=== PATIENT | female | born 1940 | race Caucasian/White ===

== ENCOUNTER → 2017-04-06 | Outpatient (CLI) | payer OTHER ==
[~2017-04-06] MED LIST: ALBU17IN INH; ALLO15TA PO; AMLO10CA29 PO; HYDR25TA6 PO; METF500T13 PO; PRAV20TA2 PO
[2017-04-06 09:12] LABS: BASO # 0.1 K/mm3 (0.0-0.2); EOS # 0.3 K/mm3 (0.0-0.50); EOS % 4.2 % (0.0-3.0); LARGE UNSTAINED CELL # 0.1 K/mm3 (0.0-0.4); LARGE UNSTAINED CELL % 2.1 % (0.0-4.0); LYMPH # 2.3 K/mm3 (1.5-4.5); LYMPH % 35.6 % (24.0-44.0); MEAN CORPUSCULAR HEMOGLOBIN 31.5 pg (27.0-33.0); MEAN CORPUSCULAR HGB CONC 33.6 g/dl (32.0-36.5); MEAN CORPUSCULAR VOLUME 93.8 fl (80.0-96.0); MONO # 0.4 K/mm3 (0.0-0.8); MONO % 6.1 % (0.0-5.0); NEUTROPHILS # 3.3 K/mm3 (1.8-7.7); NEUTROPHILS % 51.1 % (36.0-66.0); PLATELET COUNT, AUTOMATED 312 k/mm3 (150-450); RED CELL DISTRIBUTION WIDTH 13.6 % (11.5-14.5); WHITE BLOOD COUNT 6.5 K/mm3 (4.0-10.0)
[2017-04-06 09:43] LABS: ALBUMIN/GLOBULIN RATIO 1.33 (1.00-1.93); BILIRUBIN,TOTAL 0.4 MG/DL (0.2-1.0); CALCIUM LEVEL 9.2 MG/DL (8.8-10.2); CREATININE FOR GFR 1.11 MG/DL (0.55-1.02); GLOMERULAR FILTRATION RATE 50.7 (>39); POTASSIUM SERUM 4.4 MEQ/L (3.5-5.1); URIC ACID 4.5 MG/DL (2.6-6.0)
== END ==
LOC: M WUC 08:10
PROVIDERS: ATTEND Physician Assistant
DX: I10 Essential (primary) hypertension (principal); E78.5 Hyperlipidemia, unspecified; M10.9 Gout, unspecified; E11.9 Type 2 diabetes mellitus without complications; R74.0 Nonspecific elevation of levels of transaminase and lactic acid dehydrogenase [LDH]

== ENCOUNTER 2018-02-21 05:57 | Day surgery (SDC) | payer OTHER ==
[2018-02-21] MEDS ORDERED: SLF 3 ML SYR IV ×2 (06:00)
[2018-02-21] MEDS: PHENYLEPHRINE 2.5% OPHTH SOL 2ML OD (06:30)
[2018-02-21] MEDS: OFLOXACIN 0.3 % (OCUFLOX) OPTH SOL 5ML OD (06:30)
[2018-02-21] MEDS: TROPICAMIDE 1% OPHTH SOLN 2ML OD (06:30)
[2018-02-21] MEDS: PROPARACAINE 0.5% OPHTH SOL 15ML OD (06:30)
[2018-02-21 06:39] LABS: BEDSIDE GLUCOSE 119 MG/DL (83-110)
[2018-02-21] MEDS ORDERED: MIDAZOLAM INJ 2 MG/2 ML VIAL (J2250) As Ordered (07:31)
[2018-02-21] MEDS ORDERED: fentaNYL 100 MCG/2 ML INJECTION (J3010) As Ordered (07:31)
[2018-02-21] MEDS: CEFUROXIME 1MG/0.1ML INTRACAMERAL INJ As Ordered (08:00)
[2018-02-21] MEDS: BALANCED SALT IRRIGATION SOLUTION 500ML BAG (FOR OR EYE MACHINE) As Ordered (08:00)
[2018-02-21] MEDS: POVIDONE-IODINE 5% OPHTH PREP SOL 30ML As Ordered (08:00)
[2018-02-21] MEDS: DUOVISC (0.50ML VISCOAT/0.55ML PROVISC) OPHTH KIT As Ordered (08:00)
[2018-02-21] MEDS: LIDOCAINE 0.75%/EPINEPHRINE 0.025% IN BSS 1ML SYR INTRACAMERAL (OR ONLY) As Ordered (08:00)
== END 2018-02-21 09:00 | disposition home or self-care (01) ==
LOC: M SDC 05:57
DX: H25.11 Age-related nuclear cataract, right eye (principal); I10 Essential (primary) hypertension; R55 Syncope and collapse; E11.9 Type 2 diabetes mellitus without complications; J45.909 Unspecified asthma, uncomplicated; Z79.899 Other long term (current) drug therapy; Z79.84 Long term (current) use of oral hypoglycemic drugs
CPT/HCPCS: 66984

== ENCOUNTER 2018-02-28 08:51 | Day surgery (SDC) | payer OTHER ==
[2018-02-28 09:43] LABS: BEDSIDE GLUCOSE 111 MG/DL (83-110)
[2018-02-28] MEDS: PROPARACAINE 0.5% OPHTH SOL 15ML OS (09:44)
[2018-02-28] MEDS: TROPICAMIDE 1% OPHTH SOLN 2ML OS (09:44)
[2018-02-28] MEDS: OFLOXACIN 0.3 % (OCUFLOX) OPTH SOL 5ML OS (09:44)
[2018-02-28] MEDS: PHENYLEPHRINE 2.5% OPHTH SOL 2ML OS (09:44)
[2018-02-28] MEDS: POVIDONE-IODINE 5% OPHTH PREP SOL 30ML As Ordered (10:27)
[2018-02-28] MEDS: DUOVISC (0.50ML VISCOAT/0.55ML PROVISC) OPHTH KIT As Ordered (10:30)
[2018-02-28] MEDS: LIDOCAINE 0.75%/EPINEPHRINE 0.025% IN BSS 1ML SYR INTRACAMERAL (OR ONLY) As Ordered (10:30)
[2018-02-28] MEDS: CEFUROXIME 1MG/0.1ML INTRACAMERAL INJ As Ordered (10:30)
[2018-02-28] MEDS: BALANCED SALT IRRIGATION SOLUTION 500ML BAG (FOR OR EYE MACHINE) As Ordered (10:30)
== END 2018-02-28 11:25 | disposition home or self-care (01) ==
LOC: M SDC 08:51
DX: H25.12 Age-related nuclear cataract, left eye (principal); I10 Essential (primary) hypertension; E11.9 Type 2 diabetes mellitus without complications; R06.00 Dyspnea, unspecified; J45.909 Unspecified asthma, uncomplicated; E66.01 Morbid (severe) obesity due to excess calories; Z68.38 Body mass index [BMI] 38.0-38.9, adult; Z79.899 Other long term (current) drug therapy; Z79.84 Long term (current) use of oral hypoglycemic drugs
CPT/HCPCS: 66984

== ENCOUNTER → 2018-05-27 | Outpatient (CLI) | payer OTHER ==
[2018-05-27 09:58] LABS: BASO # 0.1 10^3/uL (0.0-0.2); BASO % 0.8 % (0.0-1.0); EOS # 0.2 10^3/uL (0.0-0.50); EOS % 2.4 % (0.0-3.0); HEMATOCRIT 43.5 % (36.0-47.0); IMMATURE GRANULOCYTE % 0.3 % (0-3.0); LYMPH # 2.8 10^3/uL (1.5-4.5); LYMPH % 35.5 % (24.0-44.0); MEAN CORPUSCULAR HEMOGLOBIN 30.3 pg (27.0-33.0); MEAN CORPUSCULAR HGB CONC 32.2 g/dl (32.0-36.5); MEAN CORPUSCULAR VOLUME 94.2 fl (80.0-96.0); MONO # 0.7 10^3/uL (0.0-0.8); MONO % 8.8 % (0.0-5.0); NEUTROPHILS # 4.2 10^3/uL (1.8-7.7); NEUTROPHILS % 52.2 % (36.0-66.0); PLATELET COUNT, AUTOMATED 267 10^3/uL (150-450); RED BLOOD COUNT 4.62 10^6/uL (4.00-5.40); RED CELL DISTRIBUTION WIDTH 13.2 % (11.5-14.5)
[2018-05-27 10:12] LABS: APPEARANCE, URINE CLEAR (CLEAR); BACTERIA, URINE AUTO NEGATIVE (NEGATIVE); BILIRUBIN, URINE AUTO NEGATIVE (NEGATIVE); BLOOD, URINE BLOOD NEGATIVE (NEGATIVE); COLOR, URINE STRAW (YELLOW); GLUCOSE, URINE (UA) AUTO NEGATIVE (NEGATIVE); KETONE, URINE AUTO NEGATIVE (NEGATIVE); LEUKOCYTE ESTERASE, URINE AUTO TRACE (NEGATIVE); NITRITE, URINE AUTO NEGATIVE (NEGATIVE); PROTEIN, URINE AUTO NEGATIVE (NEGATIVE); RBC, URINE AUTO 2 /HPF (0-3); SPECIFIC GRAVITY URINE AUTO 1.002 (1.002-1.035); SQUAMOUS EPITHELIAL CELL UR AU 0 /HPF (0-6); UROBILINOGEN, URINE AUTO 0.2 mg/dL (0.0-2.0); WBC, URINE AUTO 1 /HPF (0-3)
[2018-05-27 10:32] LABS: ALBUMIN 4.2 GM/DL (3.2-5.2); ALBUMIN/GLOBULIN RATIO 1.35 (1.00-1.93); ALKALINE PHOSPHATASE 79 U/L (45-117); ALT/SGPT 22 U/L (12-78); ANION GAP 9 MEQ/L (8-16); AST/SGOT 15 U/L (7-37); BILIRUBIN,TOTAL 0.5 MG/DL (0.2-1.0); BLOOD UREA NITROGEN 16 MG/DL (7-18); CALCIUM LEVEL 9.2 MG/DL (8.8-10.2); CARBON DIOXIDE LEVEL 27 MEQ/L (21-32); CHLORIDE LEVEL 107 MEQ/L (98-107); CHOLESTEROL LEVEL 218 MG/DL (<200); CHOLESTEROL RISK RATIO 3.253 (<5); CREATININE FOR GFR 1.14 MG/DL (0.55-1.30); GLOMERULAR FILTRATION RATE 49.1 (>39); GLUCOSE, FASTING 104 MG/DL (70-100); HDL CHOLESTEROL 67 MG/DL (>40); LDL CHOLESTEROL 108 MG/DL (<100); NON-HDL-C 151 MG/DL; POTASSIUM SERUM 4.6 MEQ/L (3.5-5.1); SODIUM LEVEL 143 MEQ/L (136-145); THYROID STIMULATING HORMONE 0.766 uIU/ML (0.358-3.740); TOTAL PROTEIN 7.3 GM/DL (6.4-8.2); TRIGLYCERIDES LEVEL 215 MG/DL (<150)
[2018-05-27 10:35] LABS: ESTIMATED AVERAGE GLUCOSE 123 MG/DL (60-110); HEMOGLOBIN A1c 5.9 %
== END ==
LOC: M WUC 08:10
DX: E78.5 Hyperlipidemia, unspecified (principal); M10.9 Gout, unspecified
CPT/HCPCS: 84443

== ENCOUNTER 2019-03-04 15:27 | Inpatient (IN) | payer MEDICARE, OTHER ==
[~2019-03-04] VITALS: Ht 154.9 cm; Wt 95.0 kg
[~2019-03-04 15:27] MED LIST changes: -ALLO15TA PO; +ALLO300T2 PO; +AMLO10CA22 PO; -AMLO10CA29 PO; +CENT1TAB PO; +VITAD1000T PO
[2019-03-04 16:30] LABS: BASO # 0.1 10^3/uL (0.0-0.2); BASO % 0.9 % (0.0-1.0); EOS # 0.1 10^3/uL (0.0-0.50); EOS % 1.6 % (0.0-3.0); HEMOGLOBIN 14.1 g/dl (12.0-15.5); LYMPH # 2.5 10^3/uL (1.5-4.5); MEAN CORPUSCULAR HEMOGLOBIN 30.7 pg (27.0-33.0); MEAN CORPUSCULAR HGB CONC 32.8 g/dl (32.0-36.5); MEAN CORPUSCULAR VOLUME 93.5 fl (80.0-96.0); MONO # 0.7 10^3/uL (0.0-0.8); MONO % 8.6 % (0.0-5.0); NEUTROPHILS # 4.4 10^3/uL (1.8-7.7); NEUTROPHILS % 56.8 % (36.0-66.0); PLATELET COUNT, AUTOMATED 208 10^3/uL (150-450); WHITE BLOOD COUNT 7.7 10^3/uL (4.0-10.0)
--- NOTE | 2019-03-04 16:32 | REP ---
CT HEAD WITHOUT CONTRAST: HISTORY: Syncope. COMPARISON: 06/17/2016. Areas of decreased attenuation are present in the right parietal lobe and left cerebellum. These represent old infarctions. Areas of decreased attenuation are present in the basal ganglia and left thalamus. These represent old lacunar infarctions. Areas of decreased attenuation are present in the periventricular and subcortical white matter. This represents small vessel ischemic disease. There is no intraparenchymal hemorrhage, mass or midline shift. The ventricular system and cortical sulci are dilated consistent with moderate volume loss. There is no extracerebral collection. Minimal mucosal thickening is present in the right mastoid air cells. The visualized sinuses are clear. IMPRESSION: 1. 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 2. Old bilateral basal ganglia and left thalamic lacunar infarctions. 3. Small vessel ischemic disease. 4. Moderate volume loss. Electronically Signed by Spencer Calle MD 03/04/2019 04:38 P
[2019-03-04 16:52] LABS: ALBUMIN 3.9 GM/DL (3.2-5.2); ALT/SGPT 19 U/L (12-78); BILIRUBIN,DIRECT 0.1 MG/DL (0.0-0.2); BILIRUBIN,TOTAL 0.3 MG/DL (0.2-1.0); BLOOD UREA NITROGEN 10 MG/DL (7-18); C REACTIVE PROTEIN QUANTITATIV 0.32 MG/DL (0.00-0.30); CALCIUM LEVEL 9.4 MG/DL (8.8-10.2); CARBON DIOXIDE LEVEL 26 MEQ/L (21-32); CHLORIDE LEVEL 111 MEQ/L (98-107); CK-MB VALUE MASS < 1.0 NG/ML (<3.6); CPK CREATINE PHOSPHOKINASE 52 U/L (26-192); CREATININE FOR GFR 1.05 MG/DL (0.55-1.30); GLUCOSE, FASTING 109 MG/DL (70-100); MB/CK RELATIVE INDEX 1.92 (< OR =4); POTASSIUM SERUM 4.1 MEQ/L (3.5-5.1); SODIUM LEVEL 143 MEQ/L (136-145); THYROID STIMULATING HORMONE 0.341 uIU/ML (0.358-3.740); TOTAL PROTEIN 7.1 GM/DL (6.4-8.2); TROPONIN I < 0.02 NG/ML (< 0.10)
[2019-03-04 16:54] LABS: ERYTHROCYTE SEDIMENTATION RATE 24 mm/hr (0-30)
--- NOTE | 2019-03-04 20:05 | ECGEPIP ---
[facility] - ED Test Date: 2019-03-04 Pat Name: DENISE SANCHES Department: Room: - Gender: Female [employer]: JT : 1940 Requested By: Rebecca Saavedra Order Number: [id number] Reading MD: Alo Fish Measurements Intervals [place] Rate: 68 P: 22 AK: 157 QRS: 5 QRSD: 93 T: 42 QT: 408 QTc: 435 Interpretive Statements SINUS RHYTHM NSTTW ABNORMALITIES SIMILAR TO 06/17/16 Electronically Signed on 03-04-2019 20:05:13 EDT by Alo Fish
--- NOTE | 2019-03-04 21:04 | REPVR ---
EXAM: MR Head Without Contrast EXAM DATE/TIME: 03/04/2019 7:41 PM CLINICAL HISTORY: 78 years old, female; Patient HX: Blurry vision, unable to see long distance. 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 COMPARISON: CT Head without contrast 03/04/2019 3:42 PM FINDINGS: Punctate 3 mm round focus of increased diffusion and decreased ADC map signal (image 11) just anterior to the quadrigeminal plate cistern and within the dorsal midbrain and. Remote infarct with volume loss, left cerebellum and right posterior peritrigonal Midline structures and cerebellar tonsillar position appear normal. Ventricles, cisterns and sulci are symmetrically prominent. No intracranial mass, midline shift, or abnormal extra-axial fluid. No acute intracranial hemorrhage. Moderate pattern of increased T2 and flair signal in supratentorial white matter. CP angle cisterns show normal CSF signal without effacement or mass. No abnormal parenchymal or meningeal enhancement with gadolinium. Vascular flow voids are preserved in vertebro-basilar and carotid vessels. Major dural venous sinuses appear patent. Paranasal sinuses show normal aeration. Right mastoids are opacified Ocular globes and orbits are unremarkable. No soft tissue abnormality or asymmetry in the posterior nasopharynx. IMPRESSION: Acute nonhemorrhagic punctate 3 mm infarct, left posterior midbrain at the inferior colliculus level. Anatomically this could correspond to a cranial nerve 3 (oculomotor) deficit. No mass effect. Remote left cerebellar hemisphere with encephalomalacia and similar remote infarct, right posterior peritrigonal. Chronic microangiopathic supratentorial white matter changes. Electronically signed by: Boby Miranda On 03/04/2019 21:04:26 PM
--- NOTE | 2019-03-04 21:06 | REPVR ---
EXAM: MR Angiogram Head Without Contrast, Arteries EXAM DATE/TIME: 03/04/2019 7:41 PM CLINICAL HISTORY: 78 years old, female; Visual disturbance; Other visual defect; Patient HX: Blurry vision, unable to see long distance. 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 Exam focused on the arteries. 3D rendering: MIP reconstructed images were created and reviewed. COMPARISON: CT Head without contrast 03/04/2019 3:42 PM FINDINGS: Anterior circulation: Normal flow signal and luminal caliber in the petrous, cavernous and supraclinoid internal carotid arteries. Normal appearance of the anterior cerebral artery branches and middle cerebral artery branches through the MCA trifurcations. No occlusion, high-grade focal stenosis or dissection. No aneurysm. Posterior circulation: Normal distal vertebral arteries, with patent normal caliber basilar artery, and normal superior cerebellar and posterior cerebral arteries. No occlusion, high-grade stenosis or aneurysm. Right and left P1 segments are diminutive in the normal caliber right posterior cerebral arteries are supplied predominantly by posterior communicating arteries IMPRESSION: Unremarkable MR angiogram of the [place] and intracranial vertebrobasilar system. No intracranial large vessel lesion Electronically signed by: Boby Miranda On 03/04/2019 21:05:50 PM
[2019-03-04] MEDS ORDERED: ASPIRIN 325 MG TAB PO ONE (21:30)
[2019-03-04] MEDS ORDERED: ZYLO300T6 PO (21:48)
[2019-03-04] MEDS ORDERED: VITA-145 PO (21:48)
[2019-03-04] MEDS ORDERED: VITMTA PO (21:48)
[2019-03-04] MEDS ORDERED: ACETAMINOPHEN TAB 650MG DOSE (2X325MG) PO PRN (22:30)
[2019-03-04] MEDS ORDERED: MOM 30ML SUSPENSION UDC PO PRN (22:30)
[2019-03-04] MEDS ORDERED: MAALOX 30 ML SUSP *UDC PO PRN (22:30)
[2019-03-04] MEDS ORDERED: DEXTROSE 50% 50 ML SYRINGE IV PRN (22:45)
[2019-03-04] MEDS ORDERED: GLUCOSE 4 GM CHEW TABLET PO PRN (22:45)
[2019-03-04] MEDS ORDERED: GLUCAGON FOR INJ 1 MG VIAL (J1610) SC PRN (22:45)
[2019-03-04] MEDS: ENOXAPARIN 40 MG/0.4 ML SYRINGE (J1650) SC SCH (22:53)
--- NOTE | 2019-03-04 23:49 | HPEPDOC ---
General Date of Admission 03.04.19 Date of Service: Mar 04, 2019 Chief Complaint The patient is a 78-year-old female admitted with a reason for visit of Blood Pressure Problem. History of Present Illness 78f with hx of dm, htn, asthma, and hld p/w double vision. Pt reports this started about 30 hours ago. She denies any focal weakness or numbness. Family reports she is walking "very funny" and needs to hold on to something or she will fall. The double vision occurs while looking ahead or to either side. A full ROS was performed and negative except as above Home Medications Scheduled Allopurinol (Zyloprim) 300 Mg Tablet, 300 MG PO DAILY, (Reported) Amlodipine Besylate/Benazepril (Amlodipine-Benazepril 10-40 mg) 1 Cap Cap, 1 CAP PO DAILY, (Reported) Cholecalciferol (Vitamin D3) (Vitamin D3) 1,000 Unit Tablet, 1,000 UNIT PO DAILY, (Reported) Metformin HCl (Metformin HCl) 500 Mg Tab, 500 MG PO DAILY, (Reported) Multivitamins (Thera M Plus Tablet) 1 Each Tablet, 1 TAB PO DAILY, (Reported) Pravastatin Sodium (Pravastatin Sodium) 20 Mg Tab, 20 MG PO DAILY, (Reported) Allergies Coded Allergies: No Known Allergies (Unverified , 02/11/18) Past Medical History Medical History dm, htn , hld, asthma Surgical History cataracts Family History Significant Family History: No pertinent family hx Social History * Smoker: Denies Alcohol: occationally Drugs: denies A-FIB/CHADSVASC A-FIB History Current/History of A-Fib/PAF?: No Current PO Anticoag Therapy: No Age/Risk Factor Scoring CHADSVASC: CHADSVASC Response (Comments) Value Age Risk Factor Age >/= 75 years old 2 Gender Risk Factor Female 1 Hx of CHF No 0 Hx of HTN Yes 1 Hx of Stroke/TIA/or VTE Yes 2 Hx of Diabetes Yes 1 Hx of Vascular Disease No 0 Total 7 Treatment Treatment ordered: NONE Reason Anticoagulant not given: Not indicated/[id number] Physical Examination General Exam: Positive: Alert, Cooperative, No Acute Distress Eye Exam: Positive: Other Eye Symptoms (neither eye appears to adduct ) ENT Exam: Positive: Atraumatic, Mucous membr. moist/pink, Pharynx Normal Neck Exam: Positive: Supple; Negative: JVD, thyromegaly Chest Exam: Positive: Clear to auscultation, Normal air movement Heart Exam: Positive: Rate Normal, Regular Rhythm, Normal S1, Normal S2; Negative: Murmurs, Rubs Telemetry: Positive: No significant arrhythmia Abdomen Exam: Positive: Normal bowel sounds, Soft; Negative: Tenderness, Hepatospenomegaly Extremity Exam: Positive: Normal pulses; Negative: Clubbing, Cyanosis, Edema Skin Exam: Positive: Nl turgor and temperature; Negative: Breakdown, Lesion Neuro Exam: Positive: Normal Speech, Strength at 5/5 X4 ext, Normal Tone, Sensation Intact; Negative: Cranial Nerves 3-12 NL Psych Exam: Positive: Mental status NL, Mood NL, Anxiety, Memory Intact, Oriented x 3 Vital Signs Vital Signs Date Time Temp Pulse Resp B/P (MAP) Pulse Ox O2 Delivery O2 Flow Rate FiO2 03/04/19 22:15 66 155/68 (97) 97 03/04/19 18:15 20 Room Air 03/04/19 15:27 98.0 Laboratory Data Labs 24H Laboratory Tests 2 03/04/19 16:08: Immature Granulocyte % (Auto) 0.1, White Blood Count 7.7, Red Blood Count 4.60, Hemoglobin 14.1, Hematocrit 43.0, Mean Corpuscular Volume 93.5, Mean Corpuscular Hemoglobin 30.7, Mean Corpuscular Hemoglobin Concent 32.8, Red Cell Distribution Width 13.5, Platelet Count 208, Neutrophils (%) (Auto) 56.8, Lymphocytes (%) (Auto) 32.0, Monocytes (%) (Auto) 8.6H, Eosinophils (%) (Auto) 1.6, Basophils (%) (Auto) 0.9, Neutrophils # (Auto) 4.4, Lymphocytes # (Auto) 2.5, Monocytes # (Auto) 0.7, Eosinophils # (Auto) 0.1, Basophils # (Auto) 0.1, Nucleated Red Blood Cells % (auto) 0.0, Erythrocyte Sedimentation Rate 24, Anion Gap 6L, Glomerular Filtration Rate 54.0, Calcium Level 9.4, Aspartate Amino Transf (AST/SGOT) 12, Alanine Aminotransferase (ALT/SGPT) 19, Alkaline Phosphatase 74, Total Bilirubin 0.3, Direct Bilirubin 0.1, Total Creatine Kinase 52, Creatine Kinase MB < 1.0, Creatine Kinase MB Relative Index 1.92, Troponin I < 0.02, C- Reactive Protein, Quantitative 0.32H, Total Protein 7.1, Albumin 3.9, Albumin/Globulin Ratio 1.22, Thyroid Stimulating Hormone (TSH) 0.341L CBC/BMP Laboratory Tests 03/04/19 16:08 Red Blood Count 4.60, Mean Corpuscular Volume 93.5, Mean Corpuscular Hemoglobin 30.7, Mean Corpuscular Hemoglobin Concent 32.8, Red Cell Distribution Width 13.5, Neutrophils (%) (Auto) 56.8, Lymphocytes (%) (Auto) 32.0, Monocytes (%) (Auto) 8.6 H, Eosinophils (%) (Auto) 1.6, Basophils (%) (Auto) 0.9, Neutrophils # (Auto) 4.4, Lymphocytes # (Auto) 2.5, Monocytes # (Auto) 0.7, Eosinophils # (Auto) 0.1, Basophils # (Auto) 0.1 Assessment/Plan 78f p/w acute cva in midbrain outside window for tpa start aspirin no large vessel occlusions noted check lipid panel continue pravachol for now check a1c check carotid ultrasound check echo tele monitoring for afib PT/OT eval permissive htn dm hold metformin check a1c monitor fingersticks sliding scale coverage htn lotrel on hold for now Plan / VTE VTE Prophylaxis Ordered?: Yes ROLY VALENCIA MD Mar 04, 2019 22:50
[2019-03-05] VITALS (7 sets, daily range): BP systolic 136–176; BP diastolic 64–78
[2019-03-05 05:19] LABS: HEMATOCRIT 38.6 % (36.0-47.0); HEMOGLOBIN 12.7 g/dl (12.0-15.5); MEAN CORPUSCULAR HEMOGLOBIN 30.2 pg (27.0-33.0); MEAN CORPUSCULAR HGB CONC 32.9 g/dl (32.0-36.5); MEAN CORPUSCULAR VOLUME 91.7 fl (80.0-96.0); PLATELET COUNT, AUTOMATED 205 10^3/uL (150-450); RED BLOOD COUNT 4.21 10^6/uL (4.00-5.40); WHITE BLOOD COUNT 6.4 10^3/uL (4.0-10.0)
[2019-03-05 05:37] LABS: BLOOD UREA NITROGEN 11 MG/DL (7-18); CALCIUM LEVEL 8.6 MG/DL (8.8-10.2); CARBON DIOXIDE LEVEL 27 MEQ/L (21-32); CHLORIDE LEVEL 113 MEQ/L (98-107); CREATININE FOR GFR 0.93 MG/DL (0.55-1.30); GLOMERULAR FILTRATION RATE > 60.0 (>39); GLUCOSE, FASTING 100 MG/DL (70-100); POTASSIUM SERUM 3.6 MEQ/L (3.5-5.1); SODIUM LEVEL 144 MEQ/L (136-145)
[2019-03-05 05:38] LABS: CHOLESTEROL LEVEL 158 MG/DL (<200); CHOLESTEROL RISK RATIO 2.872 (<5); HDL CHOLESTEROL 55 MG/DL (>40); LDL CHOLESTEROL 73 MG/DL (<100); NON-HDL-C 103 MG/DL; TRIGLYCERIDES LEVEL 151 MG/DL (<150)
[2019-03-05 05:41] LABS: HEMOGLOBIN A1c 6.3 %
[2019-03-05] MEDS: HumaLOG INSULIN (NovoLOG) PER UNIT SC SCH ×3 (07:30→17:11)
[2019-03-05] MEDS: MULTIVITAMINS/MINERALS THERAP 1 TAB PO SCH (09:33)
[2019-03-05] MEDS: VITAMIN D 1,000 INTERNATIONAL UNITS TABLET PO SCH (09:33)
[2019-03-05] MEDS: PRAVASTATIN 20 MG TAB PO SCH (09:33)
[2019-03-05] MEDS: ASPIRIN 81 MG CHEW TABLET PO SCH (09:33)
[2019-03-05] MEDS: ALLOPURINOL 300 MG TAB PO SCH (09:34)
--- NOTE | 2019-03-05 12:47 | IPNPDOC ---
Text Note Date of Service The patient was seen on 03/05/19. NOTE Subjective: patient seen and examined at bedside. No acute overnight events reported. Patient still notes changes in vision. Denies any other medical complaints. Objective: General: NAD, lying comfortably in bed HEENT: NC/AT, PERRL, impaired EOM - right eye Lungs: CTA b/L Heart: +S1S2, RRR Abd: soft, NT, +BS Ext: no edema A/P: 78f p/w visual deficits, gait dysfunction found to have acute cva in left midbrain: #acute CVA - permissive HTN - telemetry monitoring - neurology c/s pending - PT/OT - echocardiogram - lipid profile - ASA/statin #DM - hold metformin - ISS #HTN - lotrel on hold for now VS,Fishbone, I+O VS, Fishbone, I+O Laboratory Tests 03/04/19 16:08 Red Blood Count 4.60, Mean Corpuscular Volume 93.5, Mean Corpuscular Hemoglobin 30.7, Mean Corpuscular Hemoglobin Concent 32.8, Red Cell Distribution Width 13.5, Neutrophils (%) (Auto) 56.8, Lymphocytes (%) (Auto) 32.0, Monocytes (%) (Auto) 8.6 H, Eosinophils (%) (Auto) 1.6, Basophils (%) (Auto) 0.9, Neutrophils # (Auto) 4.4, Lymphocytes # (Auto) 2.5, Monocytes # (Auto) 0.7, Eosinophils # (Auto) 0.1, Basophils # (Auto) 0.1 03/05/19 05:01 Red Blood Count 4.21, Mean Corpuscular Volume 91.7, Mean Corpuscular Hemoglobin 30.2, Mean Corpuscular Hemoglobin Concent 32.9, Red Cell Distribution Width 13.5 Vital Signs Date Time Temp Pulse Resp B/P (MAP) Pulse Ox O2 Delivery O2 Flow Rate FiO2 03/05/19 12:00 99.0 66 20 136/65 (88) 95 03/04/19 18:15 Room Air I&O- Last 24 Hours up to 6 AM 03/05/19 06:00 Intake Total 0 ml Output Total 400 ml Balance -400 ml SUSAN SAHU MD Mar 05, 2019 12:47
[2019-03-05] MEDS: CLOPIDOGREL 75 MG TAB PO SCH (19:27)
[2019-03-05] MEDS: ENOXAPARIN 40 MG/0.4 ML SYRINGE (J1650) SC SCH (20:04)
[2019-03-06 06:00] VITALS: BP 152/71
--- NOTE | 2019-03-06 07:08 | REP ---
Clinical: Cerebrovascular accident . Technique: Lopez scale and color Doppler evaluation using linear high frequency transducer Findings: Two-dimensional lopez scale and color images demonstrate normal arterial lumen with laminar flow and no appreciable narrowing. Color Doppler interrogation demonstrates normal arterial wave patterns and velocities with no significant spectral broadening. Right vertebral artery not identified. Left vertebral artery demonstrates normal flow direction. RIGHT (cm/s) LEFT (cm/s) ICA peak systolic velocity 47.4 53.4 ICA diastolic velocity 16.2 11.8 ECA peak systolic velocity 83.8 81.3 CCA peak systolic velocity 61.0 74.0 ICA/CCA ratio 0.78 0.72 Impression: No hemodynamically significant areas of narrowing or stenosis appreciated. Based on set standards narrowing falls within the normal range. Electronically Signed by Gregory Murphy MD 03/06/2019 06:59 A
--- NOTE | 2019-03-06 07:44 | ECHO ---
DATE OF STUDY: 03/05/2019 DATE OF : 1940 AGE: 78 REFERRING PROVIDER: Dr. Tyree Samaniego PATIENT LOCATION: Room 3210 REASON FOR ECHOCARDIOGRAM: CVA. 2-D MEASUREMENTS: IVS: 1.2 cm LV: 4.3 cm LVPW: 1.2 cm LA: 4.0 cm Aorta: 4.1 cm IVC: 1.8 cm DOPPLER MEASUREMENTS: Peak velocity across the aortic valve: 1.3 m/s Peak velocity across the LVOT: 0.74 m/s Mitral E: 0.92 Mitral A: 1.2 Ratio: 0.7 Maximum tricuspid valve velocity: 2.5 m/s 2-D COMMENTS: 1. Normal left ventricular size, wall thickness, and normal global left ventricular systolic function. The estimated global left ventricular systolic ejection fraction is 65-70%. 2. Borderline enlarged left atrium at 4.0 cm. Normal right atrium and right ventricle. 3. The atrial septum appeared to be normal without evidence of defect or shunt. 4. Mildly dilated aortic root at 4.1 cm. 5. Mildly calcified aortic valve with normal leaflet excursion. Mildly calcified mitral annulus with normal anterior mitral valve leaflet motion. Normal tricuspid valve. The pulmonic valve appeared to be normal. The proximal pulmonary artery branches were not well visualized. 6. The inferior vena cava was normal in size, central venous pressure is most likely normal. 7. Trace to small pericardial effusion, no evidence of cardiac tamponade. DOPPLER: Detects mild tricuspid regurgitation. The calculated pulmonary artery systolic pressure varied between 30-40 mmHg. Abnormal relaxation pattern was noted across the mitral valve leaflets as well as the mitral valve annulus consistent with features of grade 1 left ventricular diastolic dysfunction. IMPRESSION: 1. Normal global left ventricular systolic function. There are some features of left ventricular diastolic dysfunction manifested by abnormal relaxation. 2. Aortic valve sclerosis without stenosis or aortic regurgitation. 3. Isolated borderline enlarged left atrium without any significant mitral regurgitation. Probably related to underlying left ventricular diastolic dysfunction. Mitral annulus calcification was noted. 4. Mild tricuspid regurgitation with mild pulmonary hypertension. 5. Trace to small pericardial effusion, no evidence of cardiac tamponade. [facility]
[2019-03-06] MEDS: HumaLOG INSULIN (NovoLOG) PER UNIT SC SCH ×2 (07:51→12:00)
[2019-03-06] MEDS: MULTIVITAMINS/MINERALS THERAP 1 TAB PO SCH (07:51)
[2019-03-06] MEDS: VITAMIN D 1,000 INTERNATIONAL UNITS TABLET PO SCH (07:51)
[2019-03-06] MEDS: ASPIRIN 81 MG CHEW TABLET PO SCH (07:51)
[2019-03-06] MEDS: ALLOPURINOL 300 MG TAB PO SCH (07:52)
[2019-03-06] MEDS: PRAVASTATIN 20 MG TAB PO SCH (07:52)
[2019-03-06] MEDS: CLOPIDOGREL 75 MG TAB PO SCH (07:52)
--- NOTE | 2019-03-06 09:03 | CR ---
DATE OF CONSULTATION: 03/05/2019 REFERRING PHYSICIAN: Dr. Spencer Banegas REASON FOR CONSULTATION: Double vision. HISTORY OF PRESENT ILLNESS: Rachael Ivory is a 78-year-old woman with history of diabetes, hypertension and asthma who developed double vision on Sunday at around 6:15 p.m. when she was watching TV. She suddenly developed double vision and had imbalance and difficulty walking. She thought that she had problem with her eyes. She waited at home. She made an appointment with her eye doctor the next day at 1:[address] Huston who sent her to the emergency department for testing and admission. She denies any headache, neck pain, back pain, dysphagia, dysarthria, diplopia, urinary incontinence, trouble with her speech, numbness or weakness of arms and legs. She states that she has never had stroke-like symptoms. DIAGNOSTIC STUDIES: Her MRI scan of brain showed acute left pontine-mid brain inferior colliculus acute ischemic stroke. There is also evidence of remote left cerebellar and right occipital-parietal ischemic strokes. She also has extensive small-vessel ischemic disease of brain. MRA of the brain is unremarkable. ALLERGIES: No known drug allergies. PAST MEDICAL HISTORY: Diabetes, hypertension, asthma, cataract surgery. FAMILY HISTORY: Noncontributory. SOCIAL HISTORY: She denies smoking, alcohol or illicit drugs. REVIEW OF SYSTEMS: All systems were reviewed and found to be noncontributory except as mentioned in history of present illness. CURRENT MEDICATIONS: Aspirin 81 mg by mouth daily, pravastatin 20 mg by mouth daily and she also takes metformin at home. PHYSICAL EXAMINATION: Temperature 98.5, pulse 68, respiratory rate 20, blood pressure 176/78, and 96% saturation on room air. Heart: Regular rate and rhythm. Lungs: Clear to auscultation. Abdomen: Soft, nontender, nondistended. No pedal edema. No musculoskeletal abnormalities. No rash. No signs of meningeal irritation. The patient is awake, alert and oriented to place, person and time. Normal speech, comprehension and repetition. Extraocular muscles are intact in the right eye. She had complete restriction of adduction of the left eye. Vertical gaze and abduction of the left eye seems intact. She also has nystagmus of both eyes which is gaze evoked. No facial weakness. Tongue and uvula are midline. Visual jean are full to confrontation. Recent and distant memory is intact. 5/5 strength in upper extremities. Normal sensation in arms. She has decreased cold pinprick vibration sensation in her feet. Deep tendon flexes 1+ in arms and knees and absent at ankles. Gait is unsteady. She has mild dysmetria on the left side. ASSESSMENT: 1. Diplopia due to left pontine-mid brain junction acute ischemic stroke. 2. Old left cerebellar and right occipital and parietal ischemic strokes with extensive small-vessel disease of brain. 3. Diabetes. 4. Hypertension. 5. Dyslipidemia. PLAN: 1. Plavix 75 mg by mouth daily, aspirin 81 mg by mouth daily, pravastatin 20 mg by mouth. 2. She should use an eye patch. 3. Her symptoms can improve from the stroke in 2-6 weeks. 4. Physical and physical and occupational therapy and rehabilitation. 5. Ultrasound of carotid arteries and echocardiogram. 6. Follow with our office in 2-4 weeks after hospital discharge.
[2019-03-06] MEDS ORDERED: ASPI81CH8 PO (10:27)
[2019-03-06] MEDS ORDERED: CLOP75TA2 PO (10:27)
--- NOTE | 2019-03-06 12:35 | DS.PDOC ---
Discharge Summary General Date of Admission Mar 04, 2019 at 22:27 Date of Discharge 03/06/19 Specialist/Consultants Involve: TRANG MEEHAN MD Discharge Summary PROCEDURES PERFORMED DURING STAY: [None]. ADMITTING DIAGNOSES: 1. CVA DISCHARGE DIAGNOSES: # left pontine-mid brain junction acute ischemic stroke. #Old left cerebellar and right occipital and parietal ischemic strokes with extensive small-vessel disease of brain. # Diabetes. # Hypertension. # Dyslipidemia. #gait dysfunction COMPLICATIONS/CHIEF COMPLAINT: Cva (Cerebralvascular Accident). HISTORY OF PRESENT ILLNESS: 78f with hx of dm, htn, asthma, and hld p/w double vision. She denied any focal weakness or numbness. Family reported she is walking "very funny" and needs to hold on to something or she will fall. The d ouble vision occurred while looking ahead or to either side. HOSPITAL COURSE: Patient admitted for further evaluation and treatment and neurology consultation. Workup unrevealing for etiology of CVA, other than medical co-morbidities. Symptoms improved but not resolved. Seen by neruo and PT. Deemed safe for discharge home with o/p follow up. DISCHARGE MEDICATIONS: Please see below. ALLERGIES: Please see below. PHYSICAL EXAMINATION ON DISCHARGE: VITAL SIGNS: Please see below. GENERAL: NAD, lying comfortably in bed HEENT: NC/AT, EOM impaired, unable to adduct left eye CARDIOVASCULAR EXAMINATION: +S1S2, RRR RESPIRATORY EXAMINATION: CTA B/L ABDOMINAL EXAMINATION: soft, NT, +BS NEUROLOGICAL EXAMINATION: impaired EOM, otherwise no other gross deficits PSYCHIATRIC EXAMINATION: AAOx3, in good spirits, anxious to go home LABORATORY DATA: Please see below. ACTIVITY: [As tolerated]. DISPOSITION: Discharge home with o/p PT, rolling walker DISCHARGE INSTRUCTIONS: 1. f/u PCP in 3-5 days 2. f/u neurology in 2-4 weeks DISCHARGE CONDITION: [Stable]. TIME SPENT ON DISCHARGE: Greater than 35 minutes. Vital Signs/I&Os Vital Signs Date Time Temp Pulse Resp B/P (MAP) Pulse Ox O2 Delivery O2 Flow Rate FiO2 03/06/19 06:00 98.2 87 16 152/71 (98) 98 03/04/19 18:15 Room Air I&O- Last 24 Hours up to 6 AM 03/06/19 06:00 Intake Total 920 ml Output Total 700 ml Balance 220 ml Laboratory Data Labs 24H Laboratory Tests 2 03/05/19 17:08: Bedside Glucose (Misc Panel) 87 03/05/19 20:03: Bedside Glucose (Misc Panel) 122H FSBS Laboratory Tests Test 03/05/19 17:08 03/05/19 20:03 Range/Units Bedside Glucose (Misc Panel) 87 122 83-110 MG/DL Discharge Medications Scheduled Allopurinol (Zyloprim) 300 Mg Tablet, 300 MG PO DAILY, (Reported) Amlodipine Besylate/Benazepril (Amlodipine-Benazepril 10-40 mg) 1 Cap Cap, 1 CAP PO DAILY, (Reported) Aspirin (Children's Aspirin) 81 Mg Tab.chew, 81 MG PO DAILY Cholecalciferol (Vitamin D3) (Vitamin D3) 1,000 Unit Tablet, 1,000 UNIT PO DAILY, (Reported) Clopidogrel Bisulfate (Clopidogrel) 75 Mg Tablet, 75 MG PO DAILY Metformin HCl (Metformin HCl) 500 Mg Tab, 500 MG PO DAILY, (Reported) Multivitamins (Thera M Plus Tablet) 1 Each Tablet, 1 TAB PO DAILY, (Reported) Pravastatin Sodium (Pravastatin Sodium) 20 Mg Tab, 20 MG PO DAILY, (Reported) Allergies Coded Allergies: No Known Allergies (Unverified , 02/11/18) SUSAN SAHU MD Mar 06, 2019 12:35
== END 2019-03-06 12:50 | disposition home or self-care (01) | DRG 66 ==
LOC: M ED 15:27 → M ED INP 22:27 → M ICU 03-05 03:30 → M MSPAV 03-05 23:30
PROVIDERS: ADMIT Hospitalist; ATTEND Internal Medicine
DX: I63.9 Cerebral infarction, unspecified (principal); E11.9 Type 2 diabetes mellitus without complications; I10 Essential (primary) hypertension; E78.5 Hyperlipidemia, unspecified; R26.89 Other abnormalities of gait and mobility; J45.909 Unspecified asthma, uncomplicated; Z79.82 Long term (current) use of aspirin; Z79.899 Other long term (current) drug therapy; H53.2 Diplopia

== ENCOUNTER → 2019-06-20 | Outpatient (CLI) | payer MEDICARE ==
[~2019-06-20] MED LIST changes: +ASPI81CH8 PO; +CHOL100029 PO; +CLOP75TA2 PO; +VITA-145 PO; -VITAD1000T PO; +VITMTA PO; +ZYLO300T6 PO
[2019-06-20 12:38] LABS: BASO # 0.1 10^3/uL (0.0-0.2); BASO % 1.4 % (0.0-1.0); EOS # 0.2 10^3/uL (0.0-0.5); EOS % 3.5 % (0.0-3.0); HEMATOCRIT 43.2 % (36.0-47.0); LYMPH # 2.3 10^3/uL (1.5-5.0); LYMPH % 36.5 % (24.0-44.0); MEAN CORPUSCULAR HEMOGLOBIN 30.5 pg (27.0-33.0); MEAN CORPUSCULAR HGB CONC 32.4 g/dl (32.0-36.5); MEAN CORPUSCULAR VOLUME 94.1 fl (80.0-96.0); MONO # 0.5 10^3/uL (0.0-0.8); MONO % 7.9 % (0.0-5.0); NEUTROPHILS # 3.2 10^3/uL (1.5-8.5); NEUTROPHILS % 50.4 % (36.0-66.0); PLATELET COUNT, AUTOMATED 241 10^3/uL (150-450); RED BLOOD COUNT 4.59 10^6/uL (4.00-5.40); WHITE BLOOD COUNT 6.3 10^3/uL (4.0-10.0)
[2019-06-20 12:50] LABS: ALBUMIN 3.9 GM/DL (3.2-5.2); BILIRUBIN,TOTAL 0.6 MG/DL (0.2-1.0); CALCIUM LEVEL 9.1 MG/DL (8.8-10.2); CHOLESTEROL RISK RATIO 2.909 (<5); CREATININE FOR GFR 1.01 MG/DL (0.55-1.30); GLOMERULAR FILTRATION RATE 56.3 (>39); POTASSIUM SERUM 4.9 MEQ/L (3.5-5.1); THYROID STIMULATING HORMONE 0.968 uIU/ML (0.358-3.740)
[2019-06-20 12:55] LABS: HEMOGLOBIN A1c 5.9 %
[2019-06-20 13:11] LABS: TOTAL 25(OH) VITAMIN D 35.2 NG/ML (30.0-100.0)
== END ==
LOC: M WUC 08:58
PROVIDERS: ATTEND Physician Assistant
DX: E78.5 Hyperlipidemia, unspecified (principal); I10 Essential (primary) hypertension; E05.90 Thyrotoxicosis, unspecified without thyrotoxic crisis or storm; E11.9 Type 2 diabetes mellitus without complications; E55.9 Vitamin D deficiency, unspecified

== ENCOUNTER → 2019-07-17 | Outpatient (CLI) | payer MEDICARE ==
[~2019-07-17] MED LIST changes: +GASTROGRAFIN SOLUTION 30ML (Q9963) As Ordered ONE; +ISOVUE-370 76% 100ML VIAL (Q9967) As Ordered ONE
--- NOTE | 2019-07-17 19:08 | REP ---
CT ABDOMEN AND PELVIS WITH ORAL AND IV CONTRAST: TECHNIQUE: Axial contrast enhanced images from the lung bases to the pubic symphysis using 100 mL Isovue 370 intravenous contrast material with multiplanar reformations. The liver demonstrates no mass. There are small gallstones in the gallbladder without gallbladder wall thickening. The spleen is normal in size with no intrinsic abnormality. The adrenals, pancreas and kidneys are unremarkable. There is no hydronephrosis. There is atherosclerotic calcification of the abdominal aorta without aneurysm. There is no adenopathy, free air or free fluid. There is no bowel wall thickening. The appendix is normal. There is diverticulosis of the sigmoid colon without diverticulitis. No pelvic mass is seen. The urinary bladder is not distended and not evaluated. No bone lesions are seen. There are degenerative changes of the spine. IMPRESSION: No adenopathy or mass. Sigmoid diverticulosis without acute diverticulitis. Small gallstones in a noninflamed gallbladder. Electronically Signed by Smith Lopez MD 07/18/2019 04:37 P
--- NOTE | 2019-07-17 19:08 | REP ---
CT CHEST WITH IV CONTRAST: TECHNIQUE: Axial contrast enhanced images from the thoracic inlet to the upper abdomen using 100 mL Isovue 370 intravenous contrast material with multiplanar reformations. Large mass is seen in the upper inner left breast measuring 4.2 cm in diameter. There is overlying skin thickening. There are adjacent infiltrative streaky densities in the adjacent fat locally. There are a few subcentimeter left axillary lymph nodes. A lymph node at the upper limits of normal in size is seen lateral to the left lobe of the thyroid measuring 1 cm in short axis. The thyroid itself is enlarged bilaterally. There appears to a small cyst in the right lobe. Just below the thyroid anterior to the left subclavian artery there is a mildly enlarged lymph node 1.2 cm in diameter. There is a pretracheal lymph node measuring 1.1 cm in short axis. There is precarinal adenopathy 1.8 cm in diameter. There are a couple of adjacent subcentimeter nodes in the precarinal region. There are two or three subcentimeter AP window nodes. There are several subcentimeter anterior mediastinal nodes measuring up to 10 mm in short axis. Enlarged right hilar node measures 1.4 cm in short axis. An enlarged subcarinal lymph node measures 1.1 cm. A few subcentimeter left hilar lymph nodes are seen. The heart is normal in size. There is no pleural or pericardial effusion. There is no thoracic aortic aneurysm. A nodule in the left upper lobe posteriorly is seen, 6 mm in diameter. No other pulmonary nodules are seen. No definite bone lesion is seen. IMPRESSION: Large mass upper inner quadrant left breast 4.2 cm in diameter. Multiple mildly enlarged mediastinal and right hilar lymph nodes as discussed in detail above. Neoplastic involvement is not excluded. In addition, there is a 6 mm nodule in the left upper lobe. Electronically Signed by Smith Lopez MD 07/18/2019 04:37 P
== END ==
LOC: M RAD 12:18
PROVIDERS: ATTEND Surgery
DX: C50.212 Malignant neoplasm of upper-inner quadrant of left female breast (principal); E04.1 Nontoxic single thyroid nodule; R59.9 Enlarged lymph nodes, unspecified
CPT/HCPCS: 71260; 74177; Q9963; Q9967

== ENCOUNTER → 2019-08-20 | Outpatient (CLI) | payer MEDICARE ==
[~2019-08-20] MED LIST changes: +D32000TA PO; +FLUC10TA PO; -GASTROGRAFIN SOLUTION 30ML (Q9963) As Ordered ONE; -ISOVUE-370 76% 100ML VIAL (Q9967) As Ordered ONE; +NYST1POW9 TOP
--- NOTE | 2019-08-20 19:01 | REP ---
PET/CT: History: Initial staging breast carcinoma. Comparisons: Comparison chest CT July 17, 2019. Comparison abdomen CT same date. TECHNIQUE: 60 minutes following the intravenous injection of a 8.43 mCi dose of F-18 FDG, three-dimensional PET scintigraphy is acquired from the skull base to the proximal thighs. Triplanar noncontrast CT scanning is acquired through the same anatomic range for attenuation correction, and image registration with scan parameters optimized to minimize radiation exposure to the patient. PET scintigraphy and CT datasets were fused and displayed on a workstation with multiplanar and projection display capability. PET/CT Findings: The known superomedial quadrant left breast mass is quite hypermetabolic with maximum standard uptake value 10.81. The left upper lobe nodule shows no discernible FDG accumulation. There is mildly hypermetabolic uptake however in the enlarged hilar and mediastinal lymph nodes seen on recent chest CT study. There is a small left supraclavicular lymph node which is mildly hypermetabolic (2.63). Pretracheal and precarinal and left paratracheal lymph nodes range in avidity from a maximum SUV value 4.93-7.23. Subcarinal adenopathy is seen with SUV 5.97. Left hilar hypermetabolic node is 5.97. Right hilar node is similar 5.27. There is mild symmetric metabolic hyperactivity in the parotid glands diffusely and bilaterally consistent with parotitis. Head and neck soft tissues are otherwise unremarkable. Impression: The left breast mass is hypermetabolic. There is hypermetabolic bilateral hilar and mediastinal lymphadenopathy and there is a very small but mildly hypermetabolic left supraclavicular lymph node. Electronically Signed by Jose Sanchez MD 08/20/2019 07:08 P
== END ==
LOC: M PLARAD 08:15
PROVIDERS: ATTEND Internal Medicine Medical Oncology
DX: C50.312 Malignant neoplasm of lower-inner quadrant of left female breast (principal)
CPT/HCPCS: 78815; A9552

== ENCOUNTER → 2019-08-25 | Outpatient (CLI) | payer MEDICARE ==
--- NOTE | 2019-08-25 15:30 | REP ---
WHOLE BODY BONE SCAN: Following the intravenous administration of 22 millicuries technetium 99m MDP, patient's whole body is imaged in the anterior and posterior projections with multiple additional oblique and lateral views obtained. Focal arthritic uptake is seen in the medial left knee joint as well as in the left tarsal region. There appears to be mild arthritic uptake at the right lumbosacral junction. There is no compelling scintigraphic evidence of osseous metastases. Renal and bladder activity are seen. IMPRESSION: No compelling scintigraphic evidence of osseous metastases. Electronically Signed by Smith Lopez MD 08/27/2019 12:02 P
== END ==
LOC: M RAD 07:48
PROVIDERS: ATTEND Internal Medicine Medical Oncology
DX: C50.919 Malignant neoplasm of unspecified site of unspecified female breast (principal)

== ENCOUNTER → 2019-11-27 | Outpatient (CLI) | payer MEDICARE ==
[~2019-11-27] MED LIST changes: +CAPE1TAB2 PO; +VITA1CHW7 PO
[2019-11-27 14:24] LABS: ALBUMIN 3.9 GM/DL (3.2-5.2); ALT/SGPT 25 U/L (12-78); BILIRUBIN,TOTAL 0.6 MG/DL (0.2-1.0); BLOOD UREA NITROGEN 14 MG/DL (7-18); CALCIUM LEVEL 9.2 MG/DL (8.8-10.2); CARBON DIOXIDE LEVEL 23 MEQ/L (21-32); CHLORIDE LEVEL 108 MEQ/L (98-107); CREATININE FOR GFR 0.95 MG/DL (0.55-1.30); GLOMERULAR FILTRATION RATE > 60.0 (>39); GLUCOSE, FASTING 101 MG/DL (70-100); POTASSIUM SERUM 4.3 MEQ/L (3.5-5.1); SODIUM LEVEL 139 MEQ/L (136-145); TOTAL PROTEIN 6.8 GM/DL (6.4-8.2)
[2019-11-27 14:38] LABS: BASO # 0.1 10^3/uL (0.0-0.2); BASO % 0.9 % (0.0-1.0); EOS # 0.2 10^3/uL (0.0-0.5); EOS % 3.5 % (0.0-3.0); HEMATOCRIT 39.1 % (36.0-47.0); LYMPH # 2.3 10^3/uL (1.5-5.0); LYMPH % 41.8 % (24.0-44.0); MEAN CORPUSCULAR HEMOGLOBIN 31.9 pg (27.0-33.0); MEAN CORPUSCULAR HGB CONC 33.2 g/dl (32.0-36.5); MEAN CORPUSCULAR VOLUME 96.1 fl (80.0-96.0); MONO # 0.5 10^3/uL (0.0-0.8); MONO % 9.1 % (0.0-5.0); NEUTROPHILS # 2.4 10^3/uL (1.5-8.5); NEUTROPHILS % 44.5 % (36.0-66.0); PLATELET COUNT, AUTOMATED 283 10^3/uL (150-450); RED BLOOD COUNT 4.07 10^6/uL (4.00-5.40); WHITE BLOOD COUNT 5.4 10^3/uL (4.0-10.0)
== END ==
LOC: M WUC 10:54
PROVIDERS: ATTEND Internal Medicine Medical Oncology
DX: C50.919 Malignant neoplasm of unspecified site of unspecified female breast (principal)

== ENCOUNTER → 2020-01-05 | Outpatient (CLI) | payer MEDICARE ==
[2020-01-05 12:44] LABS: BASO # 0.1 10^3/uL (0.0-0.2); BASO % 1.6 % (0.0-1.0); EOS # 0.2 10^3/uL (0.0-0.5); EOS % 4.1 % (0.0-3.0); HEMATOCRIT 39.9 % (36.0-47.0); HEMOGLOBIN 13.1 g/dl (12.0-15.5); LYMPH # 2.1 10^3/uL (1.5-5.0); LYMPH % 40.9 % (24.0-44.0); MEAN CORPUSCULAR HEMOGLOBIN 32.7 pg (27.0-33.0); MEAN CORPUSCULAR HGB CONC 32.8 g/dl (32.0-36.5); MEAN CORPUSCULAR VOLUME 99.5 fl (80.0-96.0); MONO # 0.7 10^3/uL (0.0-0.8); MONO % 13.7 % (0.0-5.0); NEUTROPHILS % 39.5 % (36.0-66.0); PLATELET COUNT, AUTOMATED 271 10^3/uL (150-450); RED BLOOD COUNT 4.01 10^6/uL (4.00-5.40); WHITE BLOOD COUNT 5.1 10^3/uL (4.0-10.0)
[2020-01-05 13:19] LABS: ALBUMIN 3.7 GM/DL (3.2-5.2); BILIRUBIN,TOTAL 0.6 MG/DL (0.2-1.0); CREATININE FOR GFR 1.04 MG/DL (0.55-1.30); GLOMERULAR FILTRATION RATE 54.4 (>39); POTASSIUM SERUM 4.7 MEQ/L (3.5-5.1); TOTAL PROTEIN 6.7 GM/DL (6.4-8.2)
== END ==
LOC: M WUC 09:37
PROVIDERS: ATTEND Internal Medicine Medical Oncology
DX: C50.912 Malignant neoplasm of unspecified site of left female breast (principal)

== ENCOUNTER → 2020-02-11 | Outpatient (CLI) | payer MEDICARE ==
[2020-02-11 14:12] LABS: CHOLESTEROL RISK RATIO 3.209 (<5)
[2020-02-11 14:27] LABS: HEMOGLOBIN A1c 5.5 %
== END ==
LOC: M WUC 08:54
PROVIDERS: ATTEND Physician Assistant
DX: E78.5 Hyperlipidemia, unspecified (principal); E11.9 Type 2 diabetes mellitus without complications

== ENCOUNTER → 2020-03-15 | Outpatient (CLI) | payer MEDICARE ==
[~2020-03-15] MED LIST changes: +GASTROGRAFIN SOLUTION 30ML (Q9963) As Ordered ONE; +ISOVUE-370 76% 100ML VIAL As Ordered ONE
--- NOTE | 2020-04-22 10:25 | REP ---
CT OF THE CHEST WITH IV CONTRAST: Delay in reporting results from hospital computer system malfunction from malware/ ransomware. COMPARISON: 12/17/19 and 07/17/19 HISTORY: Breast carcinoma follow up and restaging. FINDINGS: There is a mass medially in the left breast, today measuring 3.6 cm in greatest diameter. This measured 4.2 cm on 07/17/19. There is collateral flow in subcutaneous veins along the anterior chest wall. This is unchanged. Lymph nodes are again identified at the thoracic inlet, bilateral axilla, mediastinum and bilateral poornima, not significantly changed in size from the prior studies. Some of these are slightly enlarged, as previously. No enlarging lymph nodes are identified. There is a nodule posteriorly in the left upper lobe measuring 6 mm in diameter, unchanged from 09/17/18. No new lung nodules are identified. There are no infiltrates or pleural effusions. The thoracic aorta is unremarkable. Cardiac size is normal. There is no pericardial effusion. There are no lytic, blastic or destructive skeletal changes. The thyroid gland is enlarged, particularly the lower poles, however this is unchanged. IMPRESSION: There has been no significant interval change except that the known left breast mass has slightly decreased in size. There are multiple lymph nodes at the thoracic inlet, mediastinum, axilla and poornima, unchanged. The left upper lobe lung nodule is unchanged. MTDD
--- NOTE | 2020-04-22 10:26 | REP ---
CT OF THE ABDOMEN AND PELVIS WITH BOWEL CONTRAST: Delay in reporting results from hospital computer system malfunction from malware/ ransomware. HISTORY: Restaging of breast carcinoma. COMPARISON: 12/17/19 FINDINGS: The hepatic parenchyma is homogeneous and unchanged. There are tiny gallbladder calculi along the dependent gallbladder wall, unchanged. The pancreas and spleen are normal size and homogeneous. The adrenals are unremarkable. There is a small right renal mid-pole cortical cyst measuring 8 mm in diameter, unchanged. The kidneys are otherwise unchanged and unremarkable. The abdominal aorta is unremarkable. There is no periaortic adenopathy or mass. The bowel and mesentery are unchanged. There is no mesenteric adenopathy or ascites. There is sigmoid colon diverticulosis without diverticulitis. This is unchanged. The uterus and bladder are unremarkable. There are high density structures in the adnexa bilaterally, unchanged, possibly surgical clips. This is unchanged. There is no pelvic adenopathy or ascites. There are faintly visible lucencies in the lumbar vertebral bodies, however these are unchanged from the prior studies and from 07/17/19. There was no evidence of skeletal metastatic disease on the radionuclide bone scan dated 08/25/19. These lucencies may represent demineralization. There is degenerative disc disease at L5-S1, unchanged. IMPRESSION: No change from prior studies. No evidence of metastatic disease, mass or ascites. There are stable lucencies in the lumbar vertebral bodies, likely demineralization. MTDD
== END ==
LOC: M RAD 16:30
PROVIDERS: ATTEND Internal Medicine Medical Oncology
DX: C50.919 Malignant neoplasm of unspecified site of unspecified female breast (principal)
CPT/HCPCS: 71260; 74177; Q9963; Q9967

== ENCOUNTER → 2020-06-08 | Outpatient (CLI) | payer MEDICARE ==
--- NOTE | 2020-06-08 15:12 | REP ---
INDICATION: BREAST CA. COMPARISON: CT 03/15/2020, 12/17/2019 TECHNIQUE: Noncontrast CT chest protocol with coronal and sagittal reconstructions. FINDINGS: The lung jean are well inflated on image 32 there is a 6 mm nodule abutting the anterior margin the major fissure in the posterior segment of the left upper lobe, stable. I do not see other parenchymal nodules, pleural thickening, pleural effusion, calcified pleural plaque or masses. The heart is not enlarged. There is some prominence of the left atrium no pericardial thickening or effusion. Calcifications at the aortic root arch and descending aorta are scattered but no aneurysm there are mediastinal nodes which are unchanged the largest is in the precarinal region but there also right paratracheal, prevascular, AP window and axilla are all unchanged. No supraclavicular adenopathy. Again noted is a mass in the medial left breast measuring 4.1 x 4 cm, previously 3.7 by 3.4 cm by my measurement today of the previous study so it is enlarged. The bone windows show no destructive lesion or compression deformity in the spine. Sternum, manubrium, clavicles, scapulae, AC and glenohumeral joints and ribs are without any acute finding. Upper abdominal structures will be reviewed with the abdominal CT. Please see that report IMPRESSION: : 1. Stable 6 mm nodule posteriorly in the left upper lobe abutting the major fissure and unchanged. 2. Enlarging left breast mass medially with measurements as described above. Some mediastinal adenopathy as described with stable. No other interval change. <Electronically signed by Kirk Sheehan > 06/08/20 [id number]
--- NOTE | 2020-06-08 15:20 | REP ---
INDICATION: BREAST CA. COMPARISON: 03/15/2020, 01/02/2020 TECHNIQUE: Oral Gastrografin mixture per our bowel contrast protocol with scanning through the abdomen and pelvis and both coronal and sagittal reconstructions provided FINDINGS: CT abdomen no gross hiatal hernia oral contrast in the stomach, small bowel loops and into the distal left colon. No reflux. Small bowel loops are not abnormally dilated show no wall thickening or mass abdominal portion of the colon shows diverticulosis on the left without signs of diverticulitis stricture or mass. I see no hepatomegaly, splenomegaly, focal hepatic or splenic mass intrahepatic biliary dilatation or adjacent ascites gallbladder shows multiple tiny layered gallstones without other finding pancreas unremarkable. Adrenal glands are normal kidneys show small of peripheral cyst lower pole on the left unchanged. No hydronephrosis, solid mass or stone. No hydroureter or ureteral stone. The aorta is calcifications without aneurysm no periaortic, retroperitoneal or other intra-lymphadenopathy. Lung window review of all CT slices shows no perforation or free air in the abdomen and pelvis. Of the bone windows show vacuum phenomena L5-S1 with vertebral body heights intact no destructive lesions. Some minor hypertrophic facet changes. Visualized ribs were intact. CT pelvis sacrum, iliac bones hips and pubic bones show minor degenerative change without destructive lesion. CT pelvis distal small bowel loops show contrast in are unremarkable. Uterus anteverted not enlarged. No pelvic mass there is distal left colonic and sigmoid diverticulosis without diverticulitis. Multiple surgical clips in the pelvis bilaterally. No ventral or inguinal hernia. The bladder is partially filled I see no dilated distal ureter, ureteral stone or bladder wall thickening/stone. IMPRESSION: 1. Stable exam with no evidence of intra-abdominal or pelvic metastatic disease, adenopathy, mass or ascites. Some degenerative changes and demineralization of the spine, stable. <Electronically signed by Kirk Sheehan > 06/08/20 [id number]
== END ==
LOC: M RAD 11:27
PROVIDERS: ATTEND Internal Medicine Medical Oncology
DX: C50.919 Malignant neoplasm of unspecified site of unspecified female breast (principal)
CPT/HCPCS: 71250; 74176; Q9963

== ENCOUNTER → 2020-07-01 | Outpatient (CLI) | payer MEDICARE ==
[~2020-07-01] MED LIST changes: +D31000TA2 PO; -GASTROGRAFIN SOLUTION 30ML (Q9963) As Ordered ONE; -ISOVUE-370 76% 100ML VIAL As Ordered ONE; +LIDOCAINE 1% MDV 20ML VIAL As Ordered ONE; +MIDAZOLAM INJ 2MG/2ML VIAL (J2250 PER 1MG) As Ordered ONE; +PROMETHAZINE INJ 25 MG/ML VIAL (J2550) As Ordered ONE; +ceFAZolin 1GM VIAL (J0690 PER 500MG) As Ordered ONE; +diphenhydrAMINE 50MG/ML VIAL (J1200) As Ordered ONE; +fentaNYL 100 MCG/2 ML INJECTION (J3010) As Ordered ONE
--- NOTE | 2020-07-01 10:08 | IRHP ---
[facility] IR Pre-Procedure H & P General Date of Service: Jul 01, 2020 Procedure: Same Day Surgery Interval History and Physical I have seen the patient and reviewed last H & P performed within 30 days. There is no significant interval change. History of Present Illness Chief Complaint The patient is a 80-year-old female admitted with a reason for visit of Breast Ca. PRE-PROCEDURE DIAGNOSIS:breast ca left HEART: normal rate. LUNGS: normal breathing at rest. ASA Classification ASA Classification: III-Severe systemic dis. Mallampati Score: II NPO: Yes Problems with prior sedation: No Obstructive Sleep Apnea: No Plan moderate sedation Allergies Coded Allergies: No Known Allergies (Unverified , 02/11/18) Home Medications Scheduled Allopurinol (Zyloprim), 300 MG PO DAILY, (Reported) Amlodipine Besylate/Benazepril (Amlodipine-Benazepril 10-40 mg), 1 CAP PO DAILY, (Reported) Aspirin (Children's Aspirin), 81 MG PO DAILY Capecitabine (Capecitabine), 4 TAB PO BID Clopidogrel Bisulfate (Clopidogrel), 75 MG PO DAILY Metformin HCl (Metformin HCl), 500 MG PO DAILY, (Reported) Pravastatin Sodium (Pravastatin Sodium), 20 MG PO DAILY, (Reported) Miscellaneous Medications Cholecalciferol (Vitamin D3) (Vitamin D3), 2,000 UNIT PO, (Reported) MYNOR DEXTER MD Jul 01, 2020 10:08
[2020-07-01 11:07] LABS: HEMATOCRIT 41.2 % (36.0-47.0); HEMOGLOBIN 13.5 g/dl (12.0-15.5); MEAN CORPUSCULAR HEMOGLOBIN 32.4 pg (27.0-33.0); MEAN CORPUSCULAR HGB CONC 32.8 g/dl (32.0-36.5); MEAN CORPUSCULAR VOLUME 98.8 fl (80.0-96.0); PLATELET COUNT, AUTOMATED 250 10^3/uL (150-450); RED BLOOD COUNT 4.17 10^6/uL (4.00-5.40); WHITE BLOOD COUNT 5.5 10^3/uL (4.0-10.0)
[2020-07-01 11:36] LABS: CALCIUM LEVEL 9.3 MG/DL (8.8-10.2); CREATININE FOR GFR 1.09 MG/DL (0.55-1.30); GLOMERULAR FILTRATION RATE 51.4 (>32)
[2020-07-01 13:30] VITALS: BP_DIAS 63
--- NOTE | 2020-07-02 12:07 | POST-OPPD ---
Postoperative Procedure Note Date Of Procedure: Jul 01, 2020 Time Of Procedure: 16:00 IR ultrasound and fluoroscopy guided port placement IR Ultrasound of the neck. IR Moderate sedation. Clinical indication: Left-sided breast cancer. Physician: Dr. Anderson. Procedure: The patient was advised of the benefits, risks, and alternatives of the procedure and informed consent was obtained. A time-out was performed with verification of the patient's name, MRN, site of procedure and type of procedure to be performed. The patient was positioned in the supine position on the angiographic table. The site was prepped and draped in the usual sterile fashion. Moderate sedation was performed by the physician including the presence of an independent trained RN who assisted and monitored the patient's level of consciousness and physiologic status. Following the administration of fentanyl and Versed , the physician spent 45 minutes of continuous face to face time with the patient. Ultrasound of the neck reveals a patent and compressible right internal jugular vein. A workers compensation claims examiner radiograph reveals no gross abnormality. The neck and anterior chest wall were anesthetized with lidocaine. The right internal jugular vein was accessed using a microintroducer needle under ultrasound guidance, via a lateral approach. An 018 wire was advanced into the superior vena cava, the needle was removed and a microsheath was placed. An Amplatz wire was then passed into the inferior vena cava. An incision at the internal jugular vein access site and anterior chest wall were made using a s calpel. An incision was made at the anterior chest wall. A small pocket was created using a combination of blunt and sharp dissection. A tunneling device was then used to pass the catheter from the pocket to the neck puncture site. An 8- Arabic Angio Next 1 Interactive Smart power port was then positioned in the pocket. The catheter was then measured and cut. The introducer sheath was exchanged for a peel-away sheath. The catheter was passed through the peel-away sheath into the internal jugular vein and the peel- away sheath was removed. The port tip was positioned at the cavoatrial junction. The port was then accessed with a Price needle. The port flushes and aspirates well. The puncture site in the neck was closed. The chest wall incision was then closed with 2-0 Vicryl and 4-0 Monocryl. Glue and Steri- Strips were applied. A sterile dressing was then applied. The patient tolerated the procedure well and was returned to the PRU in stable condition. Estimated blood loss: <5 ml. Complications: None. Conclusion: 1. Successful placement of an 8-Arabic Angio dynamics Smart power port via the right internal jugular vein. The port is ready for immediate use. 2. Patient to follow up in IR clinic in 2 weeks. Thank you for this referral. MYNOR ANDERSON MD Jul 02, 2020 12:07
== END ==
LOC: M IRPRO 09:31
PROVIDERS: ATTEND Radiology Diagnostic Radiology
DX: C50.912 Malignant neoplasm of unspecified site of left female breast (principal); Z79.82 Long term (current) use of aspirin; Z79.890 Hormone replacement therapy; Z79.899 Other long term (current) drug therapy
CPT/HCPCS: 36415; 36561; 80048; 85027; 99152; 99153; C1769; C1788; C1894; J0690; J1200; J1642; J1644; J2250; J3010

== ENCOUNTER → 2020-08-03 | Outpatient (POV) | payer MEDICARE ==
[~2020-08-03] MED LIST changes: +ASPI81TA26 PO; +CLAR10CA3 PO; +HYDR-3490 PO; -LIDOCAINE 1% MDV 20ML VIAL As Ordered ONE; +LORA-674 PO; +MAGN400T2 PO; -MIDAZOLAM INJ 2MG/2ML VIAL (J2250 PER 1MG) As Ordered ONE; +PLAV1TAB2 PO; +POTA20TA6 PO; -PROMETHAZINE INJ 25 MG/ML VIAL (J2550) As Ordered ONE; -ceFAZolin 1GM VIAL (J0690 PER 500MG) As Ordered ONE; -diphenhydrAMINE 50MG/ML VIAL (J1200) As Ordered ONE; -fentaNYL 100 MCG/2 ML INJECTION (J3010) As Ordered ONE; +vitamin d
== END ==
LOC: M TMIRPOV 08:44
PROVIDERS: ATTEND Radiology Diagnostic Radiology
DX: Z53.9 Procedure and treatment not carried out, unspecified reason (principal)

== ENCOUNTER → 2020-08-10 | Outpatient (POV) | payer MEDICARE ==
[~2020-08-10] MED LIST changes: -ASPI81TA26 PO; -CLAR10CA3 PO; -HYDR-3490 PO; -LORA-674 PO; -MAGN400T2 PO; -PLAV1TAB2 PO; -POTA20TA6 PO; -vitamin d
--- NOTE | 2020-08-12 12:03 | IRPN ---
[facility] IR Progress Note IR Progress Note DATE: Aug 10, 2020 Patient agreed to this telephone follow-up. I spent 5 minutes on the phone with the patient. FOLLOW-UP: Status post port placement. Patient states she is doing well. No fevers, chills, pain at site, swelling or discharge. She states the port has been used without any issues. ON EXAMINATION: No video on patient side. IMPRESSION: Patient doing well status post port placement. No further follow-up scheduled unless initiated by patient and or referring provider. Thank you for this referral Allergies Coded Allergies: No Known Allergies (Unverified , 02/11/18) MYNOR DEXTER MD Aug 12, 2020 12:03
== END ==
LOC: M TMIRPOV 08:06
PROVIDERS: ATTEND Radiology Diagnostic Radiology
DX: Z45.2 Encounter for adjustment and management of vascular access device (principal)

== ENCOUNTER 2020-08-25 12:47 | Inpatient (IN) | payer MEDICARE ==
[~2020-08-25] VITALS: Ht 165.1 cm; Wt 91.3 kg
[~2020-08-25 12:47] MED LIST changes: +POTA20TA6 PO
[2020-08-25] MEDS ORDERED: CAPE1TAB2 PO (13:06)
[2020-08-25] MEDS ORDERED: HYDR25TAB PO (13:06)
--- NOTE | 2020-08-25 13:50 | REP ---
INDICATION: Syncope/near-syncope. COMPARISON: Comparison chest CT June 08, 2020. TECHNIQUE: Portable upright AP chest radiograph. FINDINGS: The lungs are well inflated and free of infiltrate. Pleural angles are sharp. Heart size is normal. Pulmonary vasculature is not increased. Monitoring electrodes are seen. A right-sided Eqtsdw-M-Esic catheter is noted in place with its tip in the expected location of the superior vena cava. IMPRESSION: No active disease. <Electronically signed by Charles Sanchez > 08/25/20 [id number]
[2020-08-25 13:55] LABS: BASO # 0.1 10^3/uL (0.0-0.2); EOS % 0.2 % (0.0-3.0); HEMOGLOBIN 10.5 g/dl (12.0-15.5); LYMPH % 39.1 % (24.0-44.0); MEAN CORPUSCULAR HEMOGLOBIN 31.2 pg (27.0-33.0); MEAN CORPUSCULAR HGB CONC 32.8 g/dl (32.0-36.5); MONO # 0.8 10^3/uL (0.0-0.8); MONO % 16.6 % (0.0-5.0); NEUTROPHILS # 2.1 10^3/uL (1.5-8.5); NEUTROPHILS % 42.3 % (36.0-66.0); PLATELET COUNT, AUTOMATED 493 10^3/uL (150-450); RED BLOOD COUNT 3.37 10^6/uL (4.00-5.40); WHITE BLOOD COUNT 5.1 10^3/uL (4.0-10.0)
[2020-08-25 14:06] LABS: INR 1.1; PROTHROMBIN TIME 14.4 SECONDS (12.5-14.3)
[2020-08-25 14:07] LABS: PARTIAL THROMBOPLASTIN TIME 33.9 SECONDS (24.2-38.5)
[2020-08-25 14:33] LABS: BLOOD UREA NITROGEN 22 MG/DL (7-18); CALCIUM LEVEL 8.7 MG/DL (8.8-10.2); CARBON DIOXIDE LEVEL 24 MEQ/L (21-32); CHLORIDE LEVEL 108 MEQ/L (98-107); CK-MB VALUE MASS < 1.0 NG/ML (<3.6); CPK CREATINE PHOSPHOKINASE 70 U/L (26-192); CREATININE FOR GFR 1.51 MG/DL (0.55-1.30); FREE T4 1.53 NG/DL (0.76-1.46); GLOMERULAR FILTRATION RATE 35.3 (>32); GLUCOSE, FASTING 117 MG/DL (70-100); MAGNESIUM LEVEL 1.4 MG/DL (1.8-2.4); MB/CK RELATIVE INDEX 1.43 (< OR =4); POTASSIUM SERUM 3.7 MEQ/L (3.5-5.1); SODIUM LEVEL 140 MEQ/L (136-145); THYROID STIMULATING HORMONE 0.844 uIU/ML (0.358-3.740); TROPONIN I < 0.02 NG/ML (< 0.10)
[2020-08-25] MEDS ORDERED: MAG SULF 1GM/100ML (MAG RUN) 1 GM in IV 1 EA IV ONE (14:45)
[2020-08-25] MEDS ORDERED: NS 500 ML IV ONE (14:45)
--- NOTE | 2020-08-25 14:56 | ECGEPIP ---
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
[2020-08-25] MEDS ORDERED: ASPI81TA26 PO (16:01)
[2020-08-25] MEDS ORDERED: PLAV1TAB2 PO (16:01)
[2020-08-25 16:19] LABS: RSV AMPLIFICATION NEGATIVE (NEGATIVE)
[2020-08-25] MEDS ORDERED: DEXTROSE 50% 50 ML SYRINGE IV PRN (17:00)
[2020-08-25] MEDS ORDERED: GLUCOSE 4GM CHEW TABLET PO PRN (17:00)
[2020-08-25] MEDS ORDERED: GLUCAGON INJ 1MG VIAL SC PRN (17:00)
--- NOTE | 2020-08-25 17:18 | HPEPDOC ---
General Date of Admission Aug 25, 2020 Date of Service: Aug 25, 2020 Chief Complaint The patient is a 80-year-old female admitted with a reason for visit of Weakness. Source: Patient History of Present Illness Mrs. Ivory is an 80 year old female with left breast cancer on chemotherapy and diabetes mellitus type 2 here who came here for weakness and fall. She has had about 5 to 6 treatments of chemotherapy and last dose was the last week's Sunday. About a week ago, she started to have poor appetite, weakness, lightheadedness, diarrhea, and skin peeling of her arms bilaterally. Her appetite is poor not because of nausea, but because she has not felt like eating. Weakness has been progressively worsening since starting chemotherapy. Yesterday, she felt so weak, she fell and could not stand. Denies loss of consciousness or head strike. There is no palpitations. She felt weak while using her walker and fell. She lived alone. Ambulance arrived and helped her up, but she did not want to come to the hospital. This morning, she felt so weak, she decided to come to the ED. While in the ED, she was found to have SAUL. She will be admitted for SAUL and syncope. I discussed code status with her. She wanted to be DNR/DNI. She did not want to fill out the rest of the MOLST at this time except for the DNR/DNI section. Home Medications Scheduled Allopurinol (Zyloprim) 300 Mg Tablet, 300 MG PO DAILY, (Reported) Amlodipine Besylate/Benazepril (Amlodipine-Benazepril 10-40 mg) 1 Cap Cap, 1 CAP PO DAILY, (Reported) Aspirin (Aspirin EC) 81 Mg Tablet.dr, 162 MG PO DAILY, (Reported) Capecitabine (Capecitabine) 500 Mg Tablet, 1,000 MG PO DAILY, (Reported) Clopidogrel Bisulfate (Plavix) 75 Mg Tablet, 75 MG PO DAILY, (Reported) Metformin HCl (Metformin HCl) 500 Mg Tab, 500 MG PO DAILY, (Reported) Pravastatin Sodium (Pravastatin Sodium) 20 Mg Tab, 20 MG PO DAILY, (Reported) Allergies Coded Allergies: No Known Allergies (Unverified , 02/11/18) Past Medical History Medical History 1. Left breast cancer 2. Diabetes mellitus type 2 3. HLD 4. HTN 5. Asthma 6. 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 Cataract surgery on 01/2018 2. Left hand surgery Family History Father: No known medical history Mother: Asthma Social History * Smoker: non-smoker Alcohol: occationally (Last drink 1 week ago) Drugs: denies A-FIB/CHADSVASC A-FIB History Current/History of A-Fib/PAF?: No Review of Systems Constitutional: Denies: Fever Eyes: Denies: Vision change ENT: Denies: Sore Throat Skin: Reports: Rash (peeling skin of arms bilaterally) Pulmonary: Denies: Dyspnea Cardiovascular: Reports: Lt Headedness; Denies: Chest Pain Gastrointestinal: Reports: Other Symptoms (Poor appetite); Denies: Nausea, Abdominal Pain Genitourinary: Denies: Dysuria Hematologic: Denies: Bruising Neurological: Reports: Weakness; Denies: Numbness Psych: Denies: Anxiety, Depression Physical Examination General Exam: Positive: Alert, Cooperative Eye Exam: Positive: EOMI; Negative: Sclera icteric ENT Exam: Positive: Atraumatic Neck Exam: Positive: Supple Chest Exam: Positive: Clear to auscultation, Diminished Heart Exam: Positive: Rate Normal, Regular Rhythm Abdomen Exam: Positive: Normal bowel sounds, Soft; Negative: Tenderness Extremity Exam: Negative: Edema Neuro Exam: Positive: Cranial Nerves 3-12 NL Psych Exam: Positive: Mental status NL, Mood NL Vital Signs Vital Signs Date Time Temp Pulse Resp B/P (MAP) Pulse Ox O2 Delivery O2 Flow Rate FiO2 08/25/20 12:59 96.6 82 16 150/72 (98) 100 Laboratory Data Labs 24H Laboratory Tests 2 08/25/20 13:41: Immature Granulocyte % (Auto) 0.8, Neutrophils (%) (Auto) 42.3, Lymphocytes (%) (Auto) 39.1, Monocytes (%) (Auto) 16.6H, Eosinophils (%) (Auto) 0.2, Basophils (%) (Auto) 1.0, Neutrophils # (Auto) 2.1, Lymphocytes # (Auto) 2.0, Monocytes # (Auto) 0.8, Eosinophils # (Auto) 0.0, Basophils # (Auto) 0.1, Nucleated Red Blood Cells % (auto) 1.0H, Prothrombin Time 14.4H, Prothromb Time International Ratio 1.10, Activated Partial Thromboplast Time 33.9, Anion Gap 8, Glomerular Filtration Rate 35.3, Calcium Level 8.7L, Magnesium Level 1.4L, Total Creatine Kinase 70, Creatine Kinase MB < 1.0, Creatine Kinase MB Relative Index 1.43, Troponin I < 0.02, Thyroid Stimulating Hormone (TSH) 0.844, Free Thyroxine 1.53H 08/25/20 13:58: Lactic Acid Level 2.1*H 08/25/20 15:26: Coronavirus (COVID-19)(PCR) NEGATIVE, Influenza Type A (RT-PCR) NEGATIVE, Influenza Type B (RT-PCR) NEGATIVE, Respiratory Syncytial Virus (PCR) NEGATIVE CBC/BMP Laboratory Tests 08/25/20 13:41 Microbiology Microbiology 08/25/20 Blood Culture, Received Pending 08/25/20 Blood Culture, Received Pending Assessment/Plan Mrs. Ivory is an 80 year old female with left breast cancer on chemotherapy and diabetes mellitus type 2 here who came here for SAUL, weakness, and an unwitnessed fall. Will pursue syncope work up with Tele monitoring and echocardiogram. She will be given fluids for SAUL and benzepril will be held. Physical therapy will be ordered for weakness. Suspecting the weakness and SAUL is secondary to chemotherapy and poor oral intake. Plan / VTE VTE Prophylaxis Ordered?: Yes Plan Plan 1. SAUL -Creatinine on admission was 1.51 -Baseline creatinine around 1 -Most likely secondary to poor oral intake from chemotherapy -Hold benzepril -IVF and supportive care 2. Syncope -History of CVA in past -Most likely from weakness, but will pursue syncope work up -Telemetry and echocardiogram 3. Weakness -Secondary to poor oral intake from chemotherapy -Will order physical therapy to work with patient 4. Diabetes mellitus -Insulin sliding scale and carbohydrate consistent diet 5. Hypertension -Continue with Amlodipine -Hold benzepril due to SAUL -Monitor BP 6. Gout -Stable, no active disease -Continue alloburinol 7. History of CVA -Continue DAPT and pravastatin 8. DVT ppx -TEDs MARCO MOON DO Aug 25, 2020 16:25
[2020-08-25] MEDS: HumaLOG INSULIN (NovoLOG) PER UNIT SC SCH ×2 (17:30→21:00)
--- NOTE | 2020-08-25 18:06 | REPVR ---
PROCEDURE INFORMATION: Exam: US Retroperitoneal Limited, Kidneys Exam date and time: 08/25/2020 5:32 PM Age: 80 years old Clinical indication: Other: Raza TECHNIQUE: Imaging protocol: Real-time ultrasound of the retroperitoneum with image documentation. Examination was focused on the kidneys. COMPARISON: PT PET/CT Skull/mid thigh 08/20/2019 9:57 AM FINDINGS: Right kidney: The right kidney measures 8.4 cm in length by 4.3 cm in thickness and there is no hydronephrosis. There is a 1 cm cyst of the right kidney. Left kidney: The left kidney measures 10 cm in length by 5.6 cm in thickness and there is no hydronephrosis. Bladder: Normal appearing urinary bladder. IMPRESSION: No evidence of hydronephrosis. Electronically signed by: Eduardo Mondragon On 08/25/2020 18:06:12 PM
[2020-08-25] MEDS: MAG SULF 1GM/100ML (MAG RUN) 1 GM in IV 1 EA IV SCH ×2 (18:49→21:11)
[2020-08-25] MEDS: NS 1,000 ML IV SCH (18:49)
[2020-08-25 18:50] VITALS: BP 156/62
[2020-08-25 22:00] VITALS: BP 95/54
[2020-08-26 06:00] VITALS: BP 121/54
[2020-08-26] MEDS: NS 1,000 ML IV SCH ×2 (06:39→17:48)
[2020-08-26] MEDS: HumaLOG INSULIN (NovoLOG) PER UNIT SC SCH ×4 (07:30→21:00)
[2020-08-26 08:01] LABS: HEMATOCRIT 29.9 % (36.0-47.0); HEMOGLOBIN 9.8 g/dl (12.0-15.5); MEAN CORPUSCULAR HEMOGLOBIN 31.2 pg (27.0-33.0); MEAN CORPUSCULAR HGB CONC 32.8 g/dl (32.0-36.5); MEAN CORPUSCULAR VOLUME 95.2 fl (80.0-96.0); PLATELET COUNT, AUTOMATED 402 10^3/uL (150-450); RED BLOOD COUNT 3.14 10^6/uL (4.00-5.40); WHITE BLOOD COUNT 3.9 10^3/uL (4.0-10.0)
[2020-08-26 08:21] LABS: CREATININE FOR GFR 1.25 MG/DL (0.55-1.30); GLOMERULAR FILTRATION RATE 43.9 (>32); MAGNESIUM LEVEL 2.4 MG/DL (1.8-2.4); POTASSIUM SERUM 3.6 MEQ/L (3.5-5.1)
[2020-08-26] MEDS: amLODIPine 10 MG TAB PO SCH (08:43)
[2020-08-26] MEDS: PRAVASTATIN 20 MG TAB PO SCH (08:43)
[2020-08-26] MEDS: ASPIRIN 81 MG ENTERIC TAB PO SCH (08:43)
[2020-08-26] MEDS: CLOPIDOGREL 75 MG TAB PO SCH (08:43)
[2020-08-26] MEDS: allopurinoL 300 MG TAB PO SCH (08:44)
[2020-08-26] MEDS ORDERED: CAPECITABINE 50 MG/ML PO SCH (09:00)
[2020-08-26] MEDS: POLYVINYL ALCOHOL OPHTH SOLN 15 ML(LIQUITEARS) OD SCH ×3 (09:00→21:10)
[2020-08-26 14:00] VITALS: BP 118/54
--- NOTE | 2020-08-26 15:06 | IPNPDOC ---
Subjective Date Seen The patient was seen on 08/26/20. Subjective Chief Complaint/HPI Mrs. Ivory is an 80 year old female with left breast cancer on chemotherapy and diabetes mellitus type 2 here who came here for weakness and fall. No events on telemetry overnight. This morning, she still felt weak. Denies chest pain or dyspnea. She worked with physical therapy today and may need a few more sessions before home. Objective Physical Examination General Exam: Positive: Alert, Cooperative Eye Exam: Positive: EOMI; Negative: Sclera icteric ENT Exam: Positive: Atraumatic Neck Exam: Positive: Supple Chest Exam: Positive: Clear to auscultation, Diminished Heart Exam: Positive: Rate Normal, Regular Rhythm Abdomen Exam: Positive: Normal bowel sounds, Soft; Negative: Tenderness Extremity Exam: Negative: Edema Neuro Exam: Positive: Cranial Nerves 3-12 NL Psych Exam: Positive: Mental status NL, Mood NL Assessment /Plan Assessment Mrs. Ivory is an 80 year old female with left breast cancer on chemotherapy and diabetes mellitus type 2 here who came here for SAUL, weakness, and an unwitnessed fall. Will pursue syncope work up with Tele monitoring and echocardiogram. Echocardiogram was obtained today. Her tele monitoring did not demonstrate arrhythmia. Otherwise, for SAUL, she was given IVF and benzepril was held. Physical therapy worked with her for weakness. Suspecting the weakness and SAUL is secondary to chemotherapy and poor oral intake. May need 1 or 2 more sessions of physical therapy before home. Plan/VTE VTE Prophylaxis Ordered?: Yes Plan 1. SAUL -Creatinine on admission was 1.51 -Baseline creatinine around 1 -Most likely secondary to poor oral intake from chemotherapy -Hold benzepril -IVF and supportive care 2. Syncope -History of CVA in past -Most likely from weakness, but will pursue syncope work up -Telemetry did not demonstrate arrhythmia -Echocardiogram results pending 3. Weakness -Secondary to poor oral intake from chemotherapy -Will order physical therapy to work with patient -Will need 1 to 2 more session before home 4. Diabetes mellitus -Insulin sliding scale and carbohydrate consistent diet 5. Hypertension -Continue with Amlodipine -Hold benzepril due to SAUL -Monitor BP 6. Gout -Stable, no active disease -Continue alloburinol 7. History of CVA -Continue DAPT and pravastatin 8. DVT ppx -TEDs Disposition: Pending improvement in renal function. Pending clearance from PT. VS, I&O, 24H, [place] Vital Signs/I&O Vital Signs Date Time Temp Pulse Resp B/P (MAP) Pulse Ox O2 Delivery O2 Flow Rate FiO2 08/26/20 08:43 82 121/54 08/26/20 06:00 97.8 8 99 Room Air I&O- Last 24 Hours up to 6 AM 08/26/20 06:00 Intake Total 2085 ml Balance 2085 ml Laboratory Data 24H LABS Laboratory Tests 2 08/25/20 15:26: Coronavirus (COVID-19)(PCR) NEGATIVE, Influenza Type A (RT-PCR) NEGATIVE, Influenza Type B (RT-PCR) NEGATIVE, Respiratory Syncytial Virus (PCR) NEGATIVE 08/25/20 18:50: Bedside Glucose (Misc Panel) 100 08/25/20 19:04: Lactic Acid Followup at 4 Hours 1.3 08/25/20 20:17: Bedside Glucose (Misc Panel) 138H, Troponin I < 0.02 08/26/20 06:42: Nucleated Red Blood Cells % (auto) 0.8H, Anion Gap 10, Glomerular Filtration Rate 43.9, Calcium Level 8.0L, Magnesium Level 2.4 08/26/20 12:16: Bedside Glucose (Misc Panel) 95 CBC/BMP Laboratory Tests 08/26/20 06:42 Microbiology Microbiology 08/25/20 Blood Culture - Preliminary, Resulted No growth after 24 hours . All specim... 08/25/20 Blood Culture - Preliminary, Resulted No growth after 24 hours . All specim... MARCO MOON DO Aug 26, 2020 14:29
[2020-08-26 22:00] VITALS: BP 121/55
[2020-08-27] MEDS: NS 1,000 ML IV SCH (05:23)
[2020-08-27 05:48] LABS: HEMATOCRIT 28.2 % (36.0-47.0); HEMOGLOBIN 9.3 g/dl (12.0-15.5); MEAN CORPUSCULAR HEMOGLOBIN 31.1 pg (27.0-33.0); MEAN CORPUSCULAR VOLUME 94.3 fl (80.0-96.0); PLATELET COUNT, AUTOMATED 405 10^3/uL (150-450); RED BLOOD COUNT 2.99 10^6/uL (4.00-5.40)
[2020-08-27 06:00] VITALS: BP 120/51
[2020-08-27 06:12] LABS: CALCIUM LEVEL 7.8 MG/DL (8.8-10.2); GLOMERULAR FILTRATION RATE 56.8 (>32); POTASSIUM SERUM 3.3 MEQ/L (3.5-5.1)
[2020-08-27] MEDS: HumaLOG INSULIN (NovoLOG) PER UNIT SC SCH ×4 (07:30→20:24)
[2020-08-27] MEDS ORDERED: POTASSIUM CHLORIDE 10 MEQ SR TABLET PO ONE (08:00)
[2020-08-27] MEDS: allopurinoL 300 MG TAB PO SCH (09:32)
[2020-08-27] MEDS: ASPIRIN 81 MG ENTERIC TAB PO SCH (09:32)
[2020-08-27] MEDS: CLOPIDOGREL 75 MG TAB PO SCH (09:32)
[2020-08-27] MEDS: POLYVINYL ALCOHOL OPHTH SOLN 15 ML(LIQUITEARS) OD SCH ×3 (09:33→20:21)
[2020-08-27] MEDS: amLODIPine 10 MG TAB PO SCH (09:33)
[2020-08-27] MEDS: PRAVASTATIN 20 MG TAB PO SCH (09:33)
[2020-08-27 09:47] LABS: MAGNESIUM LEVEL 1.9 MG/DL (1.8-2.4)
--- NOTE | 2020-08-27 10:16 | ECHO ---
DATE OF PROCEDURE: 08/26/2020 Age: 80 Gender: Female Height: 165 cm Weight: 85 kg REFERRING PHYSICIAN: Ean Chen DO INDICATION: Syncope. MEASUREMENTS: IVS 1.1 cm LV 4.4 cm LVPW 1.2 cm LA 3.4 cm Aorta 3.4 cm RV 3.5 IVC 1.5 cm Mitral E wave velocity 90 Mitral A wave 155 E prime septal 5.0 E prime lateral 4.6 FINDINGS: This study is of acceptable technical quality. Underlying sinus rhythm. Left ventricle is of normal size and hyperdynamic contractility, estimated LVEF 70% to 75%. Borderline LVH is noted. Right ventricle has normal size and systolic function. Both atria appear grossly normal. Aortic valve is heavily sclerotic, but mobility is preserved. There are also prominent degenerative abnormalities of the mitral valve with apparent mitral annulus calcifications at the base of the posterior mitral leaflet. Tricuspid and pulmonic valves appear normal. No pericardial effusion, but pericardial fat pad is noted. Inferior vena cava is normal size. Aortic root appears normal. Aortic arch and abdominal aorta were not well seen. Doppler interrogation reveals competent aortic valve without significant stenosis or insufficiency. There is trace mitral and trace tricuspid insufficiency. Estimated pulmonary artery pressure is around 30 mmHg, which is in upper limits of normal values. Pulmonic valve is functionally competent. Mitral inflow pattern and tissue Doppler velocities of the mitral annulus reveal grade 1 diastolic dysfunction. CONCLUSIONS: 1. Study is of acceptable technical quality. Underlying sinus rhythm. 2. Normal LV size with borderline LVH, hyperdynamic LV systolic function, estimated LVEF 70% to 75%. Grade 1 diastolic dysfunction. 3. Aortic sclerosis without significant stenosis. 4. Trace mitral and tricuspid insufficiency. 5. Normal central venous pressure and borderline pulmonary hypertension. MTDD
[2020-08-27 11:57] LABS: HEMATOCRIT 29.6 % (36.0-47.0); HEMOGLOBIN 9.6 g/dl (12.0-15.5); MEAN CORPUSCULAR HEMOGLOBIN 30.9 pg (27.0-33.0); MEAN CORPUSCULAR HGB CONC 32.4 g/dl (32.0-36.5); MEAN CORPUSCULAR VOLUME 95.2 fl (80.0-96.0); PLATELET COUNT, AUTOMATED 407 10^3/uL (150-450); RED BLOOD COUNT 3.11 10^6/uL (4.00-5.40); WHITE BLOOD COUNT 4.1 10^3/uL (4.0-10.0)
[2020-08-27 12:31] LABS: PERCENT SATURATION 10.1 % (13.2-45.0)
[2020-08-27 14:00] VITALS: BP 124/56
--- NOTE | 2020-08-27 18:49 | IPNPDOC ---
Subjective Date Seen The patient was seen on 08/27/20. Subjective Chief Complaint/HPI Mrs. Ivory is an 80 year old female with left breast cancer on chemotherapy and diabetes mellitus type 2 here who came here for weakness and fall. Although her renal function is now back at baseline, she still feels weak and fatigued. Physical therapy worked with her today and also noted that she fatigues quickly. She is a candidate for ARU. Objective Physical Examination General Exam: Positive: Alert, Cooperative Eye Exam: Positive: EOMI; Negative: Sclera icteric ENT Exam: Positive: Atraumatic Neck Exam: Positive: Supple Chest Exam: Positive: Clear to auscultation, Diminished Heart Exam: Positive: Rate Normal, Regular Rhythm Abdomen Exam: Positive: Normal bowel sounds, Soft; Negative: Tenderness Extremity Exam: Negative: Edema Neuro Exam: Positive: Cranial Nerves 3-12 NL Psych Exam: Positive: Mental status NL, Mood NL Assessment /Plan Assessment Mrs. Ivory is an 80 year old female with left breast cancer on chemotherapy and diabetes mellitus type 2 here who came here for SAUL, weakness, and an unwitnessed fall. Will pursue syncope work up with Tele monitoring and echocardiogram. Echocardiogram was obtained today. Her tele monitoring did not demonstrate arrhythmia. Otherwise, for SAUL, she was given IVF and benzepril was held. Physical therapy worked with her for weakness. Suspecting the weakness and SAUL is secondary to chemotherapy and poor oral intake. Physical therapy worked with her and she is fatiguing quicker. Daughter works at home. Patient is a candidate for ARU. Plan/VTE VTE Prophylaxis Ordered?: Yes Plan 1. SAUL -Creatinine on admission was 1.51 -Baseline creatinine around 1 -Most likely secondary to poor oral intake from chemotherapy -Hold benazepril -Resolved 2. Syncope -History of CVA in past -Most likely from weakness, but will pursue syncope work up -Telemetry did not demonstrate arrhythmia -Echocardiogram demonstrates EF of 70 to 75%. Grade 1 diastolic dysfunction 3. Weakness -Secondary to poor oral intake from chemotherapy -PT recommending ARU if patient is amendable 4. Diabetes mellitus -Insulin sliding scale and carbohydrate consistent diet 5. Hypertension -Continue with Amlodipine -Hold benazepril due to SAUL -Monitor BP 6. Gout -Stable, no active disease -Continue allopurinol 7. History of CVA -Continue DAPT and pravastatin 8. DVT ppx -TEDs Disposition: Patient may need rehab before home VS, I&O, 24H, Fishbone Vital Signs/I&O Vital Signs Date Time Temp Pulse Resp B/P (MAP) Pulse Ox O2 Delivery O2 Flow Rate FiO2 08/27/20 14:00 98.7 97 18 124/56 (78) 99 Room Air I&O- Last 24 Hours up to 6 AM 08/27/20 05:59 Intake Total 2155 ml Output Total 0 ml Balance 2155 ml Laboratory Data 24H LABS Laboratory Tests 2 08/26/20 21:12: Bedside Glucose (Misc Panel) 103 08/27/20 05:06: Nucleated Red Blood Cells % (auto) 1.0H, Anion Gap 9, Glomerular Filtration Rate 56.8, Calcium Level 7.8L, Magnesium Level 1.9 08/27/20 11:40: Nucleated Red Blood Cells % (auto) 0.7H, Reticulocyte # (auto) 93.6H, Percent Reticulocyte Count 3.0H, Reticulocyte Hemoglobin Equivalent 30.7, Iron Level 21L, Total Iron Binding Capacity 208L, Transferrin % Saturation 10.1L, Ferritin 655H, Lactate Dehydrogenase 268H 08/27/20 11:42: Bedside Glucose (Misc Panel) 78L 08/27/20 16:53: Bedside Glucose (Misc Panel) 104 CBC/BMP Laboratory Tests 08/27/20 05:06 08/27/20 11:40 Microbiology Microbiology 08/25/20 Blood Culture - Preliminary, Resulted No Growth after 48 hours. All Specime... 08/25/20 Blood Culture - Preliminary, Resulted No Growth after 48 hours. All Specime... MARCO MOON DO Aug 27, 2020 18:49
[2020-08-27 22:00] VITALS: BP 124/56
[2020-08-28 06:00] VITALS: BP 133/54
[2020-08-28 06:58] LABS: HEMATOCRIT 29.1 % (36.0-47.0); HEMOGLOBIN 9.4 g/dl (12.0-15.5); MEAN CORPUSCULAR HEMOGLOBIN 30.4 pg (27.0-33.0); MEAN CORPUSCULAR HGB CONC 32.3 g/dl (32.0-36.5); MEAN CORPUSCULAR VOLUME 94.2 fl (80.0-96.0); PLATELET COUNT, AUTOMATED 411 10^3/uL (150-450); RED BLOOD COUNT 3.09 10^6/uL (4.00-5.40); WHITE BLOOD COUNT 4.7 10^3/uL (4.0-10.0)
[2020-08-28 07:24] LABS: BLOOD UREA NITROGEN 10 MG/DL (7-18); CARBON DIOXIDE LEVEL 23 MEQ/L (21-32); CHLORIDE LEVEL 113 MEQ/L (98-107); CREATININE FOR GFR 0.86 MG/DL (0.55-1.30); GLOMERULAR FILTRATION RATE > 60.0 (>32); GLUCOSE, FASTING 86 MG/DL (70-100); POTASSIUM SERUM 3.6 MEQ/L (3.5-5.1); SODIUM LEVEL 146 MEQ/L (136-145)
[2020-08-28] MEDS: HumaLOG INSULIN (NovoLOG) PER UNIT SC SCH ×4 (07:30→20:14)
[2020-08-28] MEDS: CLOPIDOGREL 75 MG TAB PO SCH (08:24)
[2020-08-28] MEDS: ASPIRIN 81 MG ENTERIC TAB PO SCH (08:24)
[2020-08-28] MEDS: PRAVASTATIN 20 MG TAB PO SCH (08:24)
[2020-08-28] MEDS: amLODIPine 10 MG TAB PO SCH (08:24)
[2020-08-28] MEDS: POLYVINYL ALCOHOL OPHTH SOLN 15 ML(LIQUITEARS) OD SCH ×3 (08:24→20:14)
[2020-08-28] MEDS: allopurinoL 300 MG TAB PO SCH (08:24)
[2020-08-28 14:00] VITALS: BP 139/54
--- NOTE | 2020-08-28 18:16 | IPNPDOC ---
Subjective Date Seen The patient was seen on 08/28/20. Subjective Chief Complaint/HPI Mrs. Ivory is an 80 year old female with left breast cancer on chemotherapy and diabetes mellitus type 2 here who came here for weakness and fall. Today she feels tied. Denies chest pain or dyspnea. Worked with physical therapy. Patient would benefit from rehab. Objective Physical Examination General Exam: Positive: Alert, Cooperative Eye Exam: Positive: EOMI; Negative: Sclera icteric ENT Exam: Positive: Atraumatic Neck Exam: Positive: Supple Chest Exam: Positive: Clear to auscultation, Diminished Heart Exam: Positive: Rate Normal, Regular Rhythm Abdomen Exam: Positive: Normal bowel sounds, Soft; Negative: Tenderness Extremity Exam: Negative: Edema Neuro Exam: Positive: Cranial Nerves 3-12 NL Psych Exam: Positive: Mental status NL, Mood NL Assessment /Plan Assessment Mrs. Ivory is an 80 year old female with left breast cancer on chemotherapy a nd diabetes mellitus type 2 here who came here for SAUL, weakness, and an unwitnessed fall. Will pursue syncope work up with Tele monitoring and echocardiogram. Echocardiogram was obtained today. Her tele monitoring did not demonstrate arrhythmia. Otherwise, for SAUL, she was given IVF and benzepril was held. Physical therapy worked with her for weakness. Suspecting the weakness and SAUL is secondary to chemotherapy and poor oral intake. Physical therapy worked with her and she is fatiguing quicker. Daughter works at home. Patient is a candidate for ARU. Plan/VTE VTE Prophylaxis Ordered?: Yes Plan 1. SAUL -Creatinine on admission was 1.51 -Baseline creatinine around 1 -Most likely secondary to poor oral intake from chemotherapy -Hold benazepril -Resolved 2. Syncope -History of CVA in past -Most likely from weakness, but will pursue syncope work up -Telemetry did not demonstrate arrhythmia -Echocardiogram demonstrates EF of 70 to 75%. Grade 1 diastolic dysfunction 3. Weakness -Secondary to poor oral intake from chemotherapy -PT recommending ARU if patient is amendable 4. Diabetes mellitus -Insulin sliding scale and carbohydrate consistent diet 5. Hypertension -Continue with Amlodipine -Hold benazepril due to SAUL -Monitor BP 6. Gout -Stable, no active disease -Continue allopurinol 7. History of CVA -Continue DAPT and pravastatin 8. DVT ppx -TEDs Disposition: Patient may need rehab before home. OT and ARU screen placed VS, I&O, 24H, [place]ty Vital Signs/I&O Vital Signs Date Time Temp Pulse Resp B/P (MAP) Pulse Ox O2 Delivery O2 Flow Rate FiO2 08/28/20 14:00 99.4 73 17 139/54 (82) 100 Room Air I&O- Last 24 Hours up to 6 AM 08/28/20 06:00 Intake Total 2540 ml Output Total 0 ml Balance 2540 ml Laboratory Data 24H LABS Laboratory Tests 2 08/27/20 20:23: Bedside Glucose (Misc Panel) 138H 08/28/20 06:24: Nucleated Red Blood Cells % (auto) 1.1H, Anion Gap 10, Glomerular Filtration Rate > 60.0, Calcium Level 8.0L 08/28/20 11:45: Bedside Glucose (Misc Panel) 110 08/28/20 16:36: Bedside Glucose (Misc Panel) 98 CBC/BMP Laboratory Tests 08/28/20 06:24 Microbiology Microbiology 08/25/20 Blood Culture - Preliminary, Resulted No Growth after 72 hours. All specime... 08/25/20 Blood Culture - Preliminary, Resulted No Growth after 72 hours. All specime... MARCO MOON DO Aug 28, 2020 18:16
[2020-08-28 22:00] VITALS: BP 131/56
[2020-08-29 06:00] VITALS: BP 122/68
[2020-08-29 07:10] LABS: HEMATOCRIT 28.9 % (36.0-47.0); HEMOGLOBIN 9.5 g/dl (12.0-15.5); MEAN CORPUSCULAR HEMOGLOBIN 30.9 pg (27.0-33.0); MEAN CORPUSCULAR HGB CONC 32.9 g/dl (32.0-36.5); MEAN CORPUSCULAR VOLUME 94.1 fl (80.0-96.0); PLATELET COUNT, AUTOMATED 400 10^3/uL (150-450); RED BLOOD COUNT 3.07 10^6/uL (4.00-5.40); WHITE BLOOD COUNT 5.1 10^3/uL (4.0-10.0)
[2020-08-29] MEDS: HumaLOG INSULIN (NovoLOG) PER UNIT SC SCH ×4 (07:30→20:41)
[2020-08-29 07:38] LABS: CALCIUM LEVEL 8.1 MG/DL (8.8-10.2); CREATININE FOR GFR 0.98 MG/DL (0.55-1.30); GLOMERULAR FILTRATION RATE 58.1 (>32); POTASSIUM SERUM 3.6 MEQ/L (3.5-5.1)
[2020-08-29] MEDS ORDERED: VANICREAM MOISTURIZING SKIN CREAM 113GM TUBE TOP PRN (08:00)
[2020-08-29] MEDS: amLODIPine 10 MG TAB PO SCH (09:00)
[2020-08-29] MEDS: PRAVASTATIN 20 MG TAB PO SCH (09:50)
[2020-08-29] MEDS: ASPIRIN 81 MG ENTERIC TAB PO SCH (09:50)
[2020-08-29] MEDS: POLYVINYL ALCOHOL OPHTH SOLN 15 ML(LIQUITEARS) OD SCH ×3 (09:50→20:41)
[2020-08-29] MEDS: CLOPIDOGREL 75 MG TAB PO SCH (09:50)
[2020-08-29] MEDS: allopurinoL 300 MG TAB PO SCH (09:50)
[2020-08-29 14:00] VITALS: BP 139/86
--- NOTE | 2020-08-29 19:10 | IPNPDOC ---
Subjective Date Seen The patient was seen on 08/29/20. Subjective Chief Complaint/HPI Mrs. Ivory is an 80 year old female with left breast cancer on chemotherapy and diabetes mellitus type 2 here who came here for weakness and fall. Today, she denies chest pain or dyspnea. Pending ARU screen for Sunday Objective Physical Examination General Exam: Positive: Alert, Cooperative Eye Exam: Positive: EOMI; Negative: Sclera icteric ENT Exam: Positive: Atraumatic Neck Exam: Positive: Supple Chest Exam: Positive: Clear to auscultation, Diminished Heart Exam: Positive: Rate Normal, Regular Rhythm Abdomen Exam: Positive: Normal bowel sounds, Soft; Negative: Tenderness Extremity Exam: Negative: Edema Neuro Exam: Positive: Cranial Nerves 3-12 NL Psych Exam: Positive: Mental status NL, Mood NL Assessment /Plan Assessment Mrs. Ivory is an 80 year old female with left breast cancer on chemotherapy and diabetes mellitus type 2 here who came here for SAUL, weakness, and an unwitnessed fall. Will pursue syncope work up with Tele monitoring and e chocardiogram. Echocardiogram was obtained today. Her tele monitoring did not demonstrate arrhythmia. Otherwise, for SAUL, she was given IVF and benzepril was held. Physical therapy worked with her for weakness. Suspecting the weakness and SAUL is secondary to chemotherapy and poor oral intake. Physical therapy worked with her and she is fatiguing quicker. Daughter is not always at home. Patient is a candidate for ARU. Plan/VTE VTE Prophylaxis Ordered?: Yes Plan 1. SAUL -Creatinine on admission was 1.51 -Baseline creatinine around 1 -Most likely secondary to poor oral intake from chemotherapy -Hold benazepril -Resolved 2. Syncope -History of CVA in past -Most likely from weakness, but will pursue syncope work up -Telemetry did not demonstrate arrhythmia -Echocardiogram demonstrates EF of 70 to 75%. Grade 1 diastolic dysfunction 3. Weakness -Secondary to poor oral intake from chemotherapy -PT recommending ARU if patient is amendable 4. Diabetes mellitus -Insulin sliding scale and carbohydrate consistent diet 5. Hypertension -Continue with Amlodipine -Hold benazepril due to SAUL -Monitor BP 6. Gout -Stable, no active disease -Continue allopurinol 7. History of CVA -Continue DAPT and pravastatin 8. DVT ppx -TEDs Disposition: Patient may need rehab before home. OT and ARU screen placed. Disposition to be determined on Sunday VS, I&O, 24H, Fishbone Vital Signs/I&O Vital Signs Date Time Temp Pulse Resp B/P (MAP) Pulse Ox O2 Delivery O2 Flow Rate FiO2 08/29/20 14:00 98.0 72 17 139/86 (103) 98 Room Air I&O- Last 24 Hours up to 6 AM 08/29/20 06:00 Intake Total 1670 ml Output Total 250 ml Balance 1420 ml Laboratory Data 24H LABS Laboratory Tests 2 08/28/20 20:05: Bedside Glucose (Misc Panel) 121H 08/29/20 06:42: Nucleated Red Blood Cells % (auto) 1.2H, Anion Gap 12, Glomerular Filtration Rate 58.1, Calcium Level 8.1L 08/29/20 11:34: Bedside Glucose (Misc Panel) 112H 08/29/20 16:29: Bedside Glucose (Misc Panel) 104 CBC/BMP Laboratory Tests 08/29/20 06:42 Microbiology Microbiology 08/25/20 Blood Culture - Preliminary, Resulted No Growth after 72 hours. All specime... 08/25/20 Blood Culture - Preliminary, Resulted No Growth after 72 hours. All specime... MARCO MOON DO Aug 29, 2020 19:10
[2020-08-29 22:00] VITALS: BP 139/76
[2020-08-30 06:00] VITALS: BP 138/76
[2020-08-30 07:14] LABS: HEMATOCRIT 31.9 % (36.0-47.0); HEMOGLOBIN 10.3 g/dl (12.0-15.5); MEAN CORPUSCULAR HEMOGLOBIN 30.5 pg (27.0-33.0); MEAN CORPUSCULAR HGB CONC 32.3 g/dl (32.0-36.5); MEAN CORPUSCULAR VOLUME 94.4 fl (80.0-96.0); PLATELET COUNT, AUTOMATED 430 10^3/uL (150-450); RED BLOOD COUNT 3.38 10^6/uL (4.00-5.40); WHITE BLOOD COUNT 6.3 10^3/uL (4.0-10.0)
[2020-08-30] MEDS: HumaLOG INSULIN (NovoLOG) PER UNIT SC SCH ×2 (07:30→12:00)
[2020-08-30] MEDS: allopurinoL 300 MG TAB PO SCH (09:22)
[2020-08-30] MEDS: PRAVASTATIN 20 MG TAB PO SCH (09:22)
[2020-08-30] MEDS: ASPIRIN 81 MG ENTERIC TAB PO SCH (09:22)
[2020-08-30] MEDS: CLOPIDOGREL 75 MG TAB PO SCH (09:22)
[2020-08-30] MEDS: POLYVINYL ALCOHOL OPHTH SOLN 15 ML(LIQUITEARS) OD SCH ×2 (09:22→16:00)
[2020-08-30 09:23] VITALS: BP 185/87
[2020-08-30] MEDS: amLODIPine 10 MG TAB PO SCH (09:23)
[2020-08-30 14:00] VITALS: BP 124/64
--- NOTE | 2020-08-30 23:02 | DS.PDOC ---
Discharge Summary General Date of Admission Aug 25, 2020 at 16:50 Date of Discharge Aug 30, 2020 Attending Physician: MARCO MOON DO Discharge Summary PROCEDURES PERFORMED DURING STAY: None ADMITTING DIAGNOSES: 1. Acute kidney injury 2. Syncope 3. Weakness 4. Diabetes mellitus 5. Hypertension 6. Gout 7. History of CVA DISCHARGE DIAGNOSES: 1. Acute kidney injury 2. Syncope 3. Weakness 4. Diabetes mellitus 5. Hypertension 6. Gout 7. History of CVA COMPLICATIONS/CHIEF COMPLAINT: Weakness,Sycope, Raza. HISTORY OF PRESENT ILLNESS: Mrs. Ivory is an 80 year old female with left breast cancer on chemotherapy and diabetes mellitus type 2 here who came here for weakness and fall. She has had about 5 to 6 treatments of chemotherapy and last dose was the last week's Sunday. About a week ago, she started to have poor appetite, weakness, lightheadedness, diarrhea, and skin peeling of her arms bilaterally. Her appetite is poor not because of nausea, but because she has not felt like eating. Weakness has been progressively worsening since starting chemotherapy. Yesterday, she felt so weak, she fell and could not stand. Denies loss of consciousness or head strike. There is no palpitations. She felt weak while using her walker and fell. She lived alone. Ambulance arrived and helped her up, but she did not want to come to the hospital. This morning, she felt so weak, she decided to come to the ED. While in the ED, she was found to have RAZA. She will be admitted for RAZA and syncope. HOSPITAL COURSE: She was given fluids for her RAZA and renal function improved. He echocardiogram demonstrated EF of 70 to 75%, grade 1 diastolic dysfunction. There were trace mitral and tricuspid insufficiency and no aortic stenosis. There was no arrhythmia on tele. Syncope may have been from poor oral intake and low intravascular volume. Poor oral intake may have been from the chemotherapy. Her chemotherapy have have also caused her fatigue. In the beginning of her hospitalization, she was very weak and fatigued. Physical therapy was recommending acute rehab. She got stronger as time passed and she wanted to go home instead. Her daughter took time off to care for her mom 19/02. Patient felt ready for home and subsequently discharged home. DISCHARGE MEDICATIONS: Please see below. ALLERGIES: Please see below. PHYSICAL EXAMINATION ON DISCHARGE: VITAL SIGNS: Please see below. GENERAL: Comfortable, in no apparent distress HEENT: Head normocephalic, atraumatic, EOMI, sclera clear NECK: Supple CARDIOVASCULAR EXAMINATION: Regular rate and rhythm RESPIRATORY EXAMINATION: Lungs clear to auscultation bilaterally ABDOMINAL EXAMINATION: Soft, non-tender, normal bowel sounds EXTREMITIES: No pitting edema bilaterally SKIN: Warm and dry NEUROLOGICAL EXAMINATION: CN 3-12 grossly intact PSYCHIATRIC EXAMINATION: Normal mood and affect LABORATORY DATA: Please see below. IMAGING: Radiologist interpretation US kidney No evidence of hydronephrosis. CXR No active disease. PROGNOSIS: Good ACTIVITY: As tolerated. DIET: Carbohydrate consistent diet DISCHARGE PLAN: Home DISPOSITION: Home, Self-Care. DISCHARGE INSTRUCTIONS: 1. PCP within 1 week DISCHARGE CONDITION: Stable. Total time spent on discharge planning, discharge summary, and medication reconciliation: 40 minutes Vital Signs/I&Os Vital Signs Date Time Temp Pulse Resp B/P (MAP) Pulse Ox O2 Delivery O2 Flow Rate FiO2 08/30/20 14:00 96.1 80 16 124/64 (84) 98 Room Air I&O- Last 24 Hours up to 6 AM 08/30/20 06:00 Intake Total 1530 ml Output Total 700 ml Balance 830 ml Laboratory Data Labs 24H Laboratory Tests 2 08/30/20 06:49: Nucleated Red Blood Cells % (auto) 0.9H 08/30/20 08:46: Bedside Glucose (Misc Panel) 100 08/30/20 12:03: Bedside Glucose (Misc Panel) 103 CBC/BMP Laboratory Tests 08/30/20 06:49 FSBS Laboratory Tests Test 08/30/20 08:46 08/30/20 12:03 Range/Units Bedside Glucose (Misc Panel) 100 103 83-110 MG/DL Microbiology Microbiology 08/25/20 Blood Culture - Final, Complete NO GROWTH AFTER 5 DAYS 08/25/20 Blood Culture - Final, Complete NO GROWTH AFTER 5 DAYS Discharge Medications Scheduled Allopurinol (Zyloprim) 300 Mg Tablet, 300 MG PO DAILY, (Reported) Amlodipine Besylate/Benazepril (Amlodipine-Benazepril 10-40 mg) 1 Cap Cap, 1 CAP PO DAILY, (Reported) Aspirin (Aspirin EC) 81 Mg Tablet.dr, 162 MG PO DAILY, (Reported) Capecitabine (Capecitabine) 500 Mg Tablet, 1,000 MG PO DAILY, (Reported) Clopidogrel Bisulfate (Plavix) 75 Mg Tablet, 75 MG PO DAILY, (Reported) Metformin HCl (Metformin HCl) 500 Mg Tab, 500 MG PO DAILY, (Reported) Pravastatin Sodium (Pravastatin Sodium) 20 Mg Tab, 20 MG PO DAILY, (Reported) Allergies Coded Allergies: No Known Allergies (Unverified , 02/11/18) MARCO MOON DO Aug 30, 2020 23:02
== END 2020-08-30 14:28 | disposition home or self-care (01) | DRG 312 ==
LOC: EDBD 12:47 → M ED 12:47 → M ED INP 16:50 → M MSPAV 18:38
PROVIDERS: ADMIT Internal Medicine; ATTEND Internal Medicine
DX: R55 Syncope and collapse (principal); N17.9 Acute kidney failure, unspecified; R53.1 Weakness; E11.9 Type 2 diabetes mellitus without complications; I10 Essential (primary) hypertension; C50.912 Malignant neoplasm of unspecified site of left female breast; M10.9 Gout, unspecified; Z86.73 Personal history of transient ischemic attack (TIA), and cerebral infarction without residual deficits; Z79.82 Long term (current) use of aspirin; Z79.899 Other long term (current) drug therapy; J45.909 Unspecified asthma, uncomplicated; H53.2 Diplopia

== ENCOUNTER → 2020-09-07 | Outpatient (CLI) | payer MEDICARE ==
[~2020-09-07] MED LIST changes: +ASPI81TA26 PO; +CLAR10CA3 PO; +GASTROGRAFIN SOLUTION 30ML (Q9963) As Ordered ONE; +HYDR-3490 PO; +LORA-674 PO; +MAGN400T2 PO; +PLAV1TAB2 PO; +vitamin d
--- NOTE | 2020-09-07 17:36 | REP ---
INDICATION: BREAST CA FOLLOW UP. COMPARISON: 06/08/2020. TECHNIQUE: CT chest performed without the use of intravenous contrast. Sagittal and coronal reconstruction images are performed. FINDINGS: Lungs: A 6 mm nodule in the right upper lobe on image 35 is stable. A 5 mm nodule in the right lung anteromedially on image 50 is unchanged. A partially calcified 6 mm nodule in the posterior left upper lobe on image 28 is stable. No new nodules are infiltrate are seen. Mediastinum: Multiple subcentimeter mediastinal lymph nodes are present. An 11 mm precarinal lymph node is stable. Alejandra: No gross adenopathy. Axilla: No gross adenopathy. Pleura: No effusion. Heart: Not enlarged. Thoracic aorta: No aneurysm. Visualized osseous structures: Unremarkable. Irregular left breast mass has decreased in size. IMPRESSION: Left breast mass has decreased in size. Few small subcentimeter nodules in the lungs are stable. <Electronically signed by Smith Lopez > 09/07/20 [id number]
--- NOTE | 2020-09-07 17:43 | REP ---
INDICATION: BREAST CA FOLLOW UP COMPARISON: None. TECHNIQUE: CT Scan of the abdomen and pelvis was performed without intravenous contrast. Sagittal and coronal reconstruction images performed. Oral contrast was administered. FINDINGS: Liver: Grossly unremarkable. Gallbladder: Unremarkable. Spleen: Grossly unremarkable.. Adrenals: Normal. Pancreas: Grossly unremarkable.. Kidneys: No hydronephrosis or nephrolithiasis. Ureters demonstrate no dilatation or calculus. There is a 1.4 cm cyst in the lower pole the right kidney. Small and large bowel: Grossly unremarkable. There is a small hiatal hernia. There is a small umbilical hernia containing noninflamed fat. Free fluid: None. Abdominal aorta: No aneurysm. Adenopathy: None. Appendix: Not inflamed. Osseous structures: There are degenerative changes of the spine without compression deformity. No definite bone lesions are seen. Pelvis: No mass. No bladder calculus seen. Metallic clips are seen in the pelvis. IMPRESSION: Stable chronic findings as above. No suspicious mass or adenopathy. <Electronically signed by Smith Lopez > 09/07/20 [id number]
== END ==
LOC: M RAD 14:44
PROVIDERS: ATTEND Internal Medicine Medical Oncology
DX: C50.919 Malignant neoplasm of unspecified site of unspecified female breast (principal)
CPT/HCPCS: 71250; 74176; Q9963

== ENCOUNTER 2020-09-08 08:30 | Inpatient (IN) | payer MEDICARE ==
[~2020-09-08] VITALS: Ht 152.4 cm; Wt 84.5 kg
[~2020-09-08 08:30] MED LIST changes: -CLAR10CA3 PO; -GASTROGRAFIN SOLUTION 30ML (Q9963) As Ordered ONE; -LORA-674 PO; -MAGN400T2 PO; -vitamin d
--- NOTE | 2020-09-08 09:12 | REP ---
INDICATION: Syncope/near-syncope COMPARISON: 08/25/2020 TECHNIQUE: Portable AP view of the chest FINDINGS: [id number] in stable position with tip in the SVC. The mediastinum and cardiac silhouette are stable and within normal limits for portable technique. The lung jean are clear without acute consolidation, effusion, or pneumothorax. Skeletal structures are intact. IMPRESSION: No acute cardiopulmonary process appreciated. <Electronically signed by Gregory Murphy > 09/08/20 [id number]
--- NOTE | 2020-09-08 09:21 | REP ---
INDICATION: Syncope COMPARISON: 03/04/2019 TECHNIQUE: Axial noncontrast images from the skull base to the thoracic inlet with coronal reformations. This CT examination was performed using the following dose reduction techniques: Automated exposure control, adjustment of mA and/or kv according to the patient's size, and use of iterative reconstruction technique. FINDINGS: Age-related atrophy with periventricular leukomalacia and microvascular ischemic changes are appreciated. Areas of encephalomalacia is suggesting old infarction in the posterior right parietal lobe and left cerebellum again noted. The ventricles and sulci are symmetric. Lopez-white differentiation is maintained. There is no evidence for acute intracranial hemorrhage, mass/mass effect, pathology or infarction. No extra-axial fluid collection. Calvarium is intact. Paranasal sinuses and mastoid air cells are clear. IMPRESSION: Age related atrophy and microvascular ischemic changes. No acute intracranial hemorrhage, infarction, or mass/mass effect. <Electronically signed by Gregory Murphy > 09/08/20 0918
--- NOTE | 2020-09-08 09:24 | REP ---
INDICATION: Syncope COMPARISON: None. TECHNIQUE: Axial noncontrast images from the skull base to the thoracic inlet with coronal and sagittal re-formations This CT examination was performed using the following dose reduction techniques: Automated exposure control, adjustment of mA and/or kv according to the patient's size, and use of iterative reconstruction technique. FINDINGS: Age-related osteopenia and advanced multilevel degenerative changes primarily involving C5-6, C6-7, C7-T1 including osteophytosis, endplate sclerosis, disc space narrowing and facet arthropathy. Facet arthropathy also identified involving C3-4. Spinal canal is patent. Posterior elements and spinous processes are intact. No obvious acute fracture/compression injury or subluxation. IMPRESSION: Advanced multilevel degenerative spondylosis. No evidence for acute pathology or trauma/injury. <Electronically signed by Gregory Murphy > 09/08/20 [id number]
[2020-09-08 09:25] LABS: RSV AMPLIFICATION NEGATIVE (NEGATIVE)
[2020-09-08 09:32] LABS: BASO # 0.1 10^3/uL (0.0-0.2); BASO % 0.7 % (0.0-1.0); EOS # 0.1 10^3/uL (0.0-0.5); EOS % 0.8 % (0.0-3.0); HEMATOCRIT 33.5 % (36.0-47.0); HEMOGLOBIN 10.7 g/dl (12.0-15.5); LYMPH # 2.2 10^3/uL (1.5-5.0); LYMPH % 20.5 % (24.0-44.0); MEAN CORPUSCULAR HEMOGLOBIN 30.8 pg (27.0-33.0); MEAN CORPUSCULAR HGB CONC 31.9 g/dl (32.0-36.5); MEAN CORPUSCULAR VOLUME 96.5 fl (80.0-96.0); MONO # 0.9 10^3/uL (0.0-0.8); MONO % 8.2 % (0.0-5.0); NEUTROPHILS # 7.6 10^3/uL (1.5-8.5); NEUTROPHILS % 69.4 % (36.0-66.0); PLATELET COUNT, AUTOMATED 414 10^3/uL (150-450); RED BLOOD COUNT 3.47 10^6/uL (4.00-5.40); WHITE BLOOD COUNT 10.9 10^3/uL (4.0-10.0)
[2020-09-08 10:03] LABS: INR 0.99; PARTIAL THROMBOPLASTIN TIME 29.9 SECONDS (24.2-38.5); PROTHROMBIN TIME 13.3 SECONDS (12.5-14.3)
[2020-09-08 10:05] LABS: BLOOD UREA NITROGEN 10 MG/DL (7-18); CALCIUM LEVEL 5.9 MG/DL (8.8-10.2); CARBON DIOXIDE LEVEL 20 MEQ/L (21-32); CHLORIDE LEVEL 118 MEQ/L (98-107); CK-MB VALUE MASS < 1.0 NG/ML (<3.6); CPK CREATINE PHOSPHOKINASE 40 U/L (26-192); CREATININE FOR GFR 0.57 MG/DL (0.55-1.30); ETHYL ALCOHOL (ETHANOL) < 0.003 % (0.000-0.010); FREE T4 1.32 NG/DL (0.76-1.46); GLOMERULAR FILTRATION RATE > 60.0 (>32); GLUCOSE, FASTING 97 MG/DL (70-100); MAGNESIUM LEVEL 1.1 MG/DL (1.8-2.4); POTASSIUM SERUM 2.9 MEQ/L (3.5-5.1); SODIUM LEVEL 147 MEQ/L (136-145); THYROID STIMULATING HORMONE 0.719 uIU/ML (0.358-3.740); TROPONIN I < 0.02 NG/ML (< 0.10)
[2020-09-08] MEDS ORDERED: vitamin d (10:37)
[2020-09-08] MEDS ORDERED: CLAR10CA3 PO (10:37)
[2020-09-08] MEDS ORDERED: MAG SULF 1GM/100ML (MAG RUN) 1 GM in IV 1 EA IV ONE (11:00)
[2020-09-08] MEDS ORDERED: KCL 10MEQ/100ML SWI (KRUN) 10 MEQ in IV 1 EA IV ONE (12:45)
[2020-09-08] MEDS ORDERED: D31000TA2 PO (12:59)
[2020-09-08] MEDS ORDERED: LORA-674 PO (12:59)
--- NOTE | 2020-09-08 13:24 | HPEPDOC ---
[facility], [place] Medical History & Physical Date of Admission Sep 08, 2020 Date of Service: Sep 08, 2020 Attending Physician: Tasneem Blackmon MD History and Physical CHIEF COMPLAINT: fall HISTORY OF PRESENT ILLNESS: Patient is an 80-year-old female with breast cancer status post chemotherapy, diabetes mellitus type 2, hypertension, hyperlipidemia, history of CVA who presents today after having lightheadedness and falling to the ground at home. According to the patient she did not loose consciousness but remembers all events during her fall. She states she was walking from her bedroom on the [place] when she became lightheaded suddenly and fell to the ground. This episode was was missed by her daughter who then called neighbors to come and help. The patient states she had no dizziness, chest pain, shortness of breath, loss of consciousness, heart palpitations, fevers, chills, coughing, recent illnesses, nausea, vomiting, weakness more than normal, vision changes, diarrhea. She admits to having some decreased appetite since her chemotherapy started. She had recently decided with her hematology/oncologist to stop chemotherapy due to the multiple negative side effects she was experiencing including skin changes, increased weakness, decreased appetite, hair loss. She was brought to our emergency room today for further evaluation. In the ER, vital signs were stable. Abnormal labs include sodium 147, chloride 118, potassium 2.9, magnesium 1.1, calcium 5.9 with ionized calcium also being low. CT of the head was negative along with all other imaging. The patient was admitted 08/25/2020 through 08/30/2020 for syncopal episode. Records were reviewed and echocardiogram done during that time showed a preserved ejection fraction with diastolic dysfunction grade 1. All other syncopal workup was negative. During exam today in ER patient still felt weak and had at that point been given magnesium, potassium supplement. Patient was admitted for further treatment of electrolyte abnormalities, weakness s/p fall. REVIEW OF SYSTEMS: Neg except mentioned above PMH 1. Left breast cancer s/p chemotherapy (last session date unknown, within last 1 month) 2. Diabetes mellitus type 2 3. HLD 4. HTN 5. Asthma 6. 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 Cataract surgery on 01/2018 2. Left hand surgery FAMHX Father: COPD. ed 75 y/o Mother: Asthma. at 70 y/o SOCIAL HX Smoker: non-smoker Alcohol: occationally (Last drink 1 week ago) Drugs: denies Lives with her daughter who recently has been around more. She is a DNR/DNI, recent MOLST form on file. Heme/onc: Dr. Montemayor. PCP: Messi Bateman PA-C Ambulates at baseline with walker ALLERGIES: Please see below. HOME MEDICATIONS: Please see below. PHYSICAL EXAMINATION: VS: 131/68, 18, T 96, HR 88, 98% on RA CONSTITUTIONAL: No acute distress, resting comfortably, AAO x 3 EYES: PERRLA, EOM intact HENT, MOUTH: Normocephalic, atraumatic, moist mucous membranes NECK: SUPPLE, no JVD, no lymphadenopathy, no carotid bruit CV: Regular rate and rhythm, S1S2 normal, no murmurs/rubs/gallops CHEST: port in right chest wall RESPIRATORY: Clear to auscultation bilaterally, no rales/rhonchi/wheezes GI: obese abdomen, BS positive in 4 quadrants, soft, nontender, nondistended, no rebound or guarding, no organomegaly : Deferred MUSCULOSKELETAL: Normal ROM. No cyanosis, clubbing, swelling, joint deformity, extremity edema INTEGUMENTARY: Multiple areas on upper ext that are desquamated- appear to be healing. Otherwise, skin intact, no rashes, no lesions, no erythema NEUROLOGIC: Cranial Nerves II-XII are intact, no focal deficits PSYCHIATRIC: Mood and affect are normal LABORATORY DATA: Please see below IMAGING: CT head: No acute intracranial abnormalities CXR: NO acute cardiopulmonary abnormalities CT C spine: Advanced multilevel degenerative spondylosis. No evidence for acute pathology or trauma/injury. Last echocardiogram 07/2020: 1. Study is of acceptable technical quality. Underlying sinus rhythm. 2. Normal LV size with borderline LVH, hyperdynamic LV systolic function, estimated LVEF 70% to 75%. Grade 1 diastolic dysfunction. 3. Aortic sclerosis without significant stenosis. 4. Trace mitral and tricuspid insufficiency. 5. Normal central venous pressure and borderline pulmonary hypertension. ASSESSMENT: 80-year-old female with breast cancer status post chemotherapy, diabetes mellitus type 2, hypertension, hyperlipidemia, history of CVA admitted for further treatment of electrolyte abnormalities, weakness s/p fall. PLAN: Weakness s/p fall r/o 2/2 to dehydration vs. electrolyte abnormalities as cause of muscular or cardiac disturbance -Multiple electrolyte abnormalities below, see treatment plan -Walks with walker at baseline, daughter has been at her home helping her the past several weeks. -PT/OT, tele Hypernatremia, hyperchloridemia possibly 2/2 to dehydration -Sodium 148, Cl 118 -F/u Urine osmolality, urine sodium, repeat labs at 18:00 -Starting on D5W w/KCL currently at 100 cc/hr -Monitor on tele Hypocalcemia, acute on chronic -Hx of Vitamin D deficiency -Calcium low at baseline 8; however, this is much lower -F/u workup including PTH, Vitamin D 1,25, monitoring magnesium levels, phosphorous, daily CMP -Given calcium gluconate IV today -F/u repeat CMP at 18:00 Hypomagnesemia, acute -Mag 1.1 -Given magnesium run x 1 -F/u repeat mag 18:00 Left breast cancer s/p chemotherapy (last session date unknown, within last 1 month) -Per patient, stopped receiving treatment with chemo due to incr symptoms, weakness, inability to tolerate -At this time, treatment is at a standstill, she is to f/u with heme/onc as o/p Diabetes mellitus type 2 -BS 97 -Consistent carb diet, FS AC only, not starting ISS at this time HLD -C/w statin HTN -Low salt diet -Holding antihypertensives for now due to soft BP initially in ER (resolved) Asthma -Stable on RA Gout -Stable -C/w allopurinol 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 Plan is discharge home when medically improved. Vital Signs Vital Signs Date Time Temp Pulse Resp B/P (MAP) Pulse Ox O2 Delivery O2 Flow Rate FiO2 09/08/20 13:00 84 123/60 (81) 97 Room Air 09/08/20 11:56 97.9 09/08/20 11:24 18 Laboratory Data Labs 24H Laboratory Tests 2 09/08/20 08:38: Immature Granulocyte % (Auto) 0.4, Neutrophils (%) (Auto) 69.4H, Lymphocytes (%) (Auto) 20.5L, Monocytes (%) (Auto) 8.2H, Eosinophils (%) (Auto) 0.8, Basophils (%) (Auto) 0.7, Neutrophils # (Auto) 7.6, Lymphocytes # (Auto) 2.2, Monocytes # (Auto) 0.9H, Eosinophils # (Auto) 0.1, Basophils # (Auto) 0.1, Nucleated Red Blood Cells % (auto) 0.0, Prothrombin Time 13.3, Prothromb Time International Ratio 0.99, Activated Partial Thromboplast Time 29.9, Anion Gap 9, Glomerular Filtration Rate > 60.0, Lactic Acid Level 1.8, Calcium Level 5.9#*L, Magnesium Level 1.1L, Total Creatine Kinase 40, Creatine Kinase MB < 1.0, Creatine Kinase MB Relative Index 2.50, Troponin I < 0.02, Thyroid Stimulating Hormone (TSH) 0.719, Free Thyroxine 1.32, Ethyl Alcohol Level < 0.003 09/08/20 08:40: Coronavirus (COVID-19)(PCR) NEGATIVE, Influenza Type A (RT-PCR) NEGATIVE, Influenza Type B (RT-PCR) NEGATIVE, Respiratory Syncytial Virus (PCR) NEGATIVE 09/08/20 11:23: Whole Blood Ionized Calcium 4.4L CBC/BMP Laboratory Tests 09/08/20 08:38 Home Medications Scheduled Allopurinol (Zyloprim) 300 Mg Tablet, 300 MG PO DAILY Amlodipine Besylate/Benazepril (Amlodipine-Benazepril 10-40 mg) 1 Cap Cap, 1 CAP PO DAILY Aspirin (Aspirin EC) 81 Mg Tablet.dr, 81 MG PO QHS Cholecalciferol (Vitamin D3) (Vitamin D3) 1,000 Unit Tablet, 1,000 UNITS PO DAILY Clopidogrel Bisulfate (Plavix) 75 Mg Tablet, 75 MG PO QHS Loratadine (Loratadine) 10 Mg Tablet, 10 MG PO QHS Metformin HCl (Metformin HCl) 500 Mg Tab, 500 MG PO DAILY Pravastatin Sodium (Pravastatin Sodium) 20 Mg Tab, 20 MG PO DAILY Allergies Coded Allergies: No Known Allergies (Unverified , 02/11/18) A-FIB/CHADSVASC A-FIB History Current/History of A-Fib/PAF?: No Current PO Anticoag Therapy: No Age/Risk Factor Scoring CHADSVASC: CHADSVASC Response (Comments) Value Age Risk Factor Age >/= 75 years old 2 Gender Risk Factor Female 1 Hx of CHF Yes 1 Hx of HTN Yes 1 Hx of Stroke/TIA/or VTE Yes 2 Hx of Diabetes Yes 1 Hx of Vascular Disease No 0 Total 8 Treatment Treatment ordered: Other Other anticoagulant ordered: Tasneem Freeman MD Sep 08, 2020 13:24
[2020-09-08] MEDS ORDERED: D5W/0.45% SODIUM CHLORIDE 1,000 ML IV SCH (14:30)
[2020-09-08 14:40] VITALS: BP 130/66
[2020-09-08 14:48] LABS: PHOSPHORUS LEVEL 1.8 MG/DL (2.5-4.9); THYROID STIMULATING HORMONE 0.692 uIU/ML (0.358-3.740)
[2020-09-08 14:49] LABS: PTH INTACT 86.6 PG/ML (18.5-88.0); TOTAL 25(OH) VITAMIN D 29.5 NG/ML (30.0-100.0)
[2020-09-08] MEDS ORDERED: CALCIUM GLUCONATE 1,000 MG in D5W MINI-BAG PLUS 100 ML IV ONE (15:00)
[2020-09-08] MEDS ORDERED: POTASSIUM CHLORIDE 10 MEQ SR TABLET PO ONE (15:00)
[2020-09-08] MEDS ORDERED: KCL 20MEQ IN D5W 1000ML 1,000 ML IV SCH (15:00)
[2020-09-08] MEDS: allopurinoL 300 MG TAB PO SCH (15:29)
[2020-09-08] MEDS: VITAMIN D 1,000 INTERNATIONAL UNITS TABLET PO SCH (15:29)
--- OUTSIDE RECORDS SUMMARY | 2020-09-08 16:13 | CCD | Continuity of Care Document ---
Author Author Rachael [facility] Organization Unknown Address [address] [facility] [address] [place] [address] Phone [phone] Problems Active Problems Provider Date Hyperlipidemia Mark Conklin DO Onset: 01/28/2004 Vitamin D deficiency Bob Bateman RPA Onset: 9 Gout Bob Bateman, MICHEAL Onset: 11/04/2010 Elevated levels of transaminase & lactic acid dehydrog enase Bob Bateman, MICHEAL Onset: 12/27/2011 Type 2 diabetes mellitus Bob Bateman, MICHEAL Onset: 07/02 Essential hypertension Bob Bateman, MICHEAL Onset: 015 Chronic renal failure Bob Bateman, MICHEAL Onset: 06/19/20 16 Hypomagnesemia Bob Bateman, MICHEAL Onset: 06/19/2016 Hypokalemia Bob Bateman, MICHEAL Onset: 06/19/2016 Hyperthyroidism Bob Bateman, MICHEAL Onset: 03/05/2019 Note: [facility] CVA - cerebrovascular accident due to cerebral artery occlusion Bob Bateman RPA Onset: 03/07/2019 Note: 03/04/19 [facility] 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 08/2014 Inactive Allergies NKDA 07/28/2003 Medications Active Medications SIG Qnty Indications Ordering Provide r Date Ventolin HFA 108(90Base) mcg/Act A erosol ii puffs every 4-6 hours as needed 54gm Rj tan D.O., [facility] 01/10/2016 Amlodipine Besylate/Benazepril Hydrochlo ride 10-40mg Capsules Take 1 Capsule By Mouth Every Day Maximu m Daily Dose = 1 90caps Rj Murillo D.O., [facility] Allopurinol 300mg Tablets one by mouth daily 90tabs Rj Murillo D.O., [facility] Metformin HCL 500mg Tablets take one tablet by mouth every day 90tabs Rj Murillo D.O., [facility] 02/11/2014 Pravastatin Sodium 20mg Tablets take 1 tablet daily 90tabs [facility]j Murillo D.O., [facility] 05/2011 Vitamin D 1000Unit Capsules 2 po qd OTC Kirsten Mahmood D., [facility] 09/17/2009 Aspirin 81 Low Dose 81mg Chewtabs 1 tab by mouth once a day Unknown Plavix 75mg Tablets 1 by mouth every day 90tabs Rj Murillo D.O., [facility] Immunizations CPT Code Status Date Vaccine Lot # [id number] Refused 05/08/2018 Influenza Virus Vaccine, Quadrivalent, Slit Virus, Im Use 3Y & Up Vital Signs Date Vital Result Comment 01/27/2020 1:59pm BP Systolic 120 mmHg BP Diastolic 58 mmHg Body Temperature 97.6 F Heart Rate 86 /min Respiratory Rate 20 /min Height 61 inches 5'1" Weight 204.00 lb Shelby Body Weight 105 lb BMI (Body Mass Index) 38.5 kg/m2 O2 % BldC Oximetry 97 % 06/12/2019 8:56am BP Systolic 140 mmHg BP Diastolic 82 mmHg BP Systolic Recheck 136 mmHg BP Diastolic Recheck 72 mmHg Body Temperature 98.2 F Heart Rate 75 /min Respiratory Rate 16 /min Height 61 inches 5'1" Weight 209.00 lb Shelby Body Weight 105 lb BMI (Body Mass Index) 39.5 kg/m2 O2 % BldC Oximetry 97 % Results Test Acquired Date Facility Test Result H/L Range Note CBC With Auto Differential OB 08/16/2020 [facility] (Interface) [phone] White Blood Count 3.7 10 Low 4.0-10.0 Red Blood Count 3.67 10 Low 4.00-5.40 Hemoglobin 11.6 g/dL Low 12.0-15.5 Hematocrit 35.3 % Low 36.0-47.0 Mean Corpuscular Volume 96.2 fl High 80.0-96.0 Mean Corpuscular Hemoglobin 31.6 pg Normal 27.0-33.0 Mean Corpuscular HGB Conc 32.9 g/dL Normal 32.0-36.5 Red Cell Distribution Width 14.0 % Normal 11.5-14.5 Platelet Count, Automated 442 10 Normal 150-450 Neutrophils % 43.7 % Normal 36.0-66.0 Lymph % 39.6 % Normal 24.0-44.0 Mower % 13.2 % High 0.0-5.0 Eos % 1.1 % Normal 0.0-3.0 Baso % 1.3 % High 0.0-1.0 Immature Granulocyte % 1.1 % Normal 0-3.0 Nucleated Red Blood Cell % 0.0 % Normal 0-0 Neutrophils # 1.6 10 Normal 1.5-8.5 Lymph # 1.5 10 Normal 1.5-5.0 Mower # 0.5 10 Normal 0.0-0.8 Eos # 0.0 10 Normal 0.0-0.5 Baso # 0.1 10 Normal 0.0-0.2 Comprehensive Metabolic Profil 08/16/2020 [facility] (Interface) [phone] Glucose, Fasting 126 mg/dL High 70-100 Blood Urea Nitrogen 16 mg/dL Normal 7-18 Creatinine For GFR 1.38 mg/dL High 0.55-1.30 Glomerular Filtration Rate 39.2 Normal >32 1 Sodium Level 142 mEq/L Normal 136-145 Potassium Serum 2.8 mEq/L Critical low 3.5-5.1 Chloride Level 107 mEq/L Normal 98-107 Carbon Dioxide Level 26 mEq/L Normal 21-32 Anion Gap 9 mEq/L Normal 8-16 Calcium Level 9.1 mg/dL Normal 8.8-10.2 Ast/Sgot 25 U/L Normal 7-37 Alt/SGPT 31 U/L Normal 12-78 Alkaline Phosphatase 79 U/L Normal 45-117 Bilirubin,Total 0.5 mg/dL Normal 0.2-1.0 Total Protein 6.4 GM/DL Normal 6.4-8.2 Albumin 3.1 GM/DL Low 3.2-5.2 Albumin/Globulin Ratio 0.9 Low 1.2-2.2 Laboratory test finding 08/16/2020 [facility] (Interface) [phone] CA 27.29 35.9 U/mL Normal 0.0-38.6 2 CBC With Auto Differential OB 08/09/2020 [facility]) [phone] White Blood Count 3.5 10 Low 4.0-10.0 Red Blood Count 3.77 10 Low 4.00-5.40 Hemoglobin 11.9 g/dL Low 12.0-15.5 Hematocrit 36.3 % Normal 36.0-47.0 Mean Corpuscular Volume 96.3 fl High 80.0-96.0 Mean Corpuscular Hemoglobin 31.6 pg Normal 27.0-33.0 Mean Corpuscular HGB Conc 32.8 g/dL Normal 32.0-36.5 Red Cell Distribution Width 13.8 % Normal 11.5-14.5 Platelet Count, Automated 357 10 Normal 150-450 Neutrophils % 50.4 % Normal 36.0-66.0 Lymph % 41.4 % Normal 24.0-44.0 Mower % 4.5 % Normal 0.0-5.0 Eos % 0.8 % Normal 0.0-3.0 Baso % 2.3 % High 0.0-1.0 Immature Granulocyte % 0.6 % Normal 0-3.0 Nucleated Red Blood Cell % 0.0 % Normal 0-0 Neutrophils # 1.8 10 Normal 1.5-8.5 Lymph # 1.5 10 Normal 1.5-5.0 Mower # 0.2 10 Normal 0.0-0.8 Eos # 0.0 10 Normal 0.0-0.5 Baso # 0.1 10 Normal 0.0-0.2 Comprehensive Metabolic Profil 08/09/2020 [facility]) [phone] Glucose, Fasting 135 mg/dL High 70-100 Blood Urea Nitrogen 15 mg/dL Normal 7-18 Creatinine For GFR 1.00 mg/dL Normal 0.55-1.30 Glomerular Filtration Rate 56.8 Normal >32 3 Sodium Level 141 mEq/L Normal 136-145 Potassium Serum 3.3 mEq/L Low 3.5-5.1 Chloride Level 106 mEq/L Normal 98-107 Carbon Dioxide Level 26 mEq/L Normal 21-32 Anion Gap 9 mEq/L Normal 8-16 Calcium Level 9.0 mg/dL Normal 8.8-10.2 Ast/Sgot 37 U/L Normal 7-37 Alt/SGPT 32 U/L Normal 12-78 Alkaline Phosphatase 87 U/L Normal 45-117 Bilirubin,Total 0.6 mg/dL Normal 0.2-1.0 Total Protein 6.3 GM/DL Low 6.4-8.2 Albumin 3.2 GM/DL Normal 3.2-5.2 Albumin/Globulin Ratio 1.0 Low 1.2-2.2 Laboratory test finding 08/09/2020 [facility] (Interface) [phone] CA 27.29 47.7 U/mL High 0.0-38.6 4 CBC With Auto Differential OB 08/02/2020 [facility] (Interface) [phone] White Blood Count 4.9 10 Normal 4.0-10.0 Red Blood Count 3.79 10 Low 4.00-5.40 Hemoglobin 11.7 g/dL Low 12.0-15.5 Hematocrit 36.8 % Normal 36.0-47.0 Mean Corpuscular Volume 97.1 fl High 80.0-96.0 Mean Corpuscular Hemoglobin 30.9 pg Normal 27.0-33.0 Mean Corpuscular HGB Conc 31.8 g/dL Low 32.0-36.5 Red Cell Distribution Width 14.4 % Normal 11.5-14.5 Platelet Count, Automated 400 10 Normal 150-450 Neutrophils % 48.0 % Normal 36.0-66.0 Lymph % 35.5 % Normal 24.0-44.0 Mower % 12.9 % High 0.0-5.0 Eos % 0.4 % Normal 0.0-3.0 Baso % 2.2 % High 0.0-1.0 Immature Granulocyte % 1.0 % Normal 0-3.0 Nucleated Red Blood Cell % 0.0 % Normal 0-0 Neutrophils # 2.4 10 Normal 1.5-8.5 Lymph # 1.7 10 Normal 1.5-5.0 Mower # 0.6 10 Normal 0.0-0.8 Eos # 0.0 10 Normal 0.0-0.5 Baso # 0.1 10 Normal 0.0-0.2 Comprehensive Metabolic Profil 08/02/2020 [facility] (Interface) [phone] Glucose, Fasting 125 mg/dL High 70-100 Blood Urea Nitrogen 11 mg/dL Normal 7-18 Creatinine For GFR 0.99 mg/dL Normal 0.55-1.30 Glomerular Filtration Rate 57.5 Normal >32 5 Sodium Level 141 mEq/L Normal 136-145 Potassium Serum 3.6 mEq/L Normal 3.5-5.1 Chloride Level 110 mEq/L High 98-107 Carbon Dioxide Level 27 mEq/L Normal 21-32 Anion Gap 4 mEq/L Low 8-16 Calcium Level 8.7 mg/dL Low 8.8-10.2 Ast/Sgot 26 U/L Normal 7-37 Alt/SGPT 20 U/L Normal 12-78 Alkaline Phosphatase 81 U/L Normal 45-117 Bilirubin,Total 0.4 mg/dL Normal 0.2-1.0 Total Protein 6.4 GM/DL Normal 6.4-8.2 Albumin 3.0 GM/DL Low 3.2-5.2 Albumin/Globulin Ratio 0.9 Low 1.2-2.2 Laboratory test finding 08/02/2020 [facility] (Interface) [phone] Ca19-9 Tumor Marker,Carbohydra 17.5 U/ML Normal < 35.0 6 Thyroid Stimulating Hormone 0.445 uIU/ML Normal 0.358-3.740 Free T4 1.47 ng/dL High 0.76-1.46 CA 27.29 48.3 U/mL High 0.0-38.6 7 CBC With Auto Differential OB 07/19/2020 [facility] (Interface) [phone] White Blood Count 5.1 10 Normal 4.0-10.0 Red Blood Count 3.86 10 Low 4.00-5.40 Hemoglobin 12.3 g/dL Normal 12.0-15.5 Hematocrit 38.0 % Normal 36.0-47.0 Mean Corpuscular Volume 98.4 fl High 80.0-96.0 Mean Corpuscular Hemoglobin 31.9 pg Normal 27.0-33.0 Mean Corpuscular HGB Conc 32.4 g/dL Normal 32.0-36.5 Red Cell Distribution Width 14.2 % Normal 11.5-14.5 Platelet Count, Automated 341 10 Normal 150-450 Neutrophils % 41.1 % Normal 36.0-66.0 Lymph % 43.3 % Normal 24.0-44.0 Mower % 10.8 % High 0.0-5.0 Eos % 2.0 % Normal 0.0-3.0 Baso % 1.6 % High 0.0-1.0 Immature Granulocyte % 1.2 % Normal 0-3.0 Nucleated Red Blood Cell % 0.0 % Normal 0-0 Neutrophils # 2.1 10 Normal 1.5-8.5 Lymph # 2.2 10 Normal 1.5-5.0 Mower # 0.6 10 Normal 0.0-0.8 Eos # 0.1 10 Normal 0.0-0.5 Baso # 0.1 10 Normal 0.0-0.2 Comprehensive Metabolic Profil 07/19/2020 [facility] ([facility]) [phone] Glucose, Fasting 146 mg/dL High 70-100 Blood Urea Nitrogen 12 mg/dL Normal 7-18 Creatinine For GFR 1.12 mg/dL Normal 0.55-1.30 Glomerular Filtration Rate 49.8 Normal >32 8 Sodium Level 141 mEq/L Normal 136-145 Potassium Serum 3.7 mEq/L Normal 3.5-5.1 Chloride Level 108 mEq/L High 98-107 Carbon Dioxide Level 27 mEq/L Normal 21-32 Anion Gap 6 mEq/L Low 8-16 Calcium Level 8.6 mg/dL Low 8.8-10.2 Ast/Sgot 34 U/L Normal 7-37 Alt/SGPT 25 U/L Normal 12-78 Alkaline Phosphatase 93 U/L Normal 45-117 Bilirubin,Total 0.4 mg/dL Normal 0.2-1.0 Total Protein 6.1 GM/DL Low 6.4-8.2 Albumin 3.2 GM/DL Normal 3.2-5.2 Albumin/Globulin Ratio 1.1 Low 1.2-2.2 Comprehensive Metabolic Profil 07/12/2020 [facility] (Interface) [phone] Glucose, Fasting 143 mg/dL High 70-100 Blood Urea Nitrogen 16 mg/dL Normal 7-18 Creatinine For GFR 1.10 mg/dL Normal 0.55-1.30 Glomerular Filtration Rate 50.9 Normal >32 9 Sodium Level 141 mEq/L Normal 136-145 Potassium Serum 3.3 mEq/L Low 3.5-5.1 Chloride Level 109 mEq/L High 98-107 Carbon Dioxide Level 28 mEq/L Normal 21-32 Anion Gap 4 mEq/L Low 8-16 Calcium Level 9.1 mg/dL Normal 8.8-10.2 Ast/Sgot 18 U/L Normal 7-37 Alt/SGPT 23 U/L Normal 12-78 Alkaline Phosphatase 91 U/L Normal 45-117 Bilirubin,Total 0.4 mg/dL Normal 0.2-1.0 Total Protein 7.0 GM/DL Normal 6.4-8.2 Albumin 3.6 GM/DL Normal 3.2-5.2 Albumin/Globulin Ratio 1.1 Low 1.2-2.2 CBC With Auto Differential OB 07/12/2020 [facility] (Interface) [phone] White Blood Count 4.9 10 Normal 4.0-10.0 Red Blood Count 4.10 10 Normal 4.00-5.40 Hemoglobin 13.0 g/dL Normal 12.0-15.5 Hematocrit 39.9 % Normal 36.0-47.0 Mean Corpuscular Volume 97.3 fl High 80.0-96.0 Mean Corpuscular Hemoglobin 31.7 pg Normal 27.0-33.0 Mean Corpuscular HGB Conc 32.6 g/dL Normal 32.0-36.5 Red Cell Distribution Width 13.9 % Normal 11.5-14.5 Platelet Count, Automated 308 10 Normal 150-450 Neutrophils % 40.9 % Normal 36.0-66.0 Lymph % 44.4 % High 24.0-44.0 Mower % 8.6 % High 0.0-5.0 Eos % 4.3 % High 0.0-3.0 Baso % 1.0 % Normal 0.0-1.0 Immature Granulocyte % 0.8 % Normal 0-3.0 Nucleated Red Blood Cell % 0.0 % Normal 0-0 Neutrophils # 2.0 10 Normal 1.5-8.5 Lymph # 2.2 10 Normal 1.5-5.0 Mower # 0.4 10 Normal 0.0-0.8 Eos # 0.2 10 Normal 0.0-0.5 Baso # 0.1 10 Normal 0.0-0.2 CBC With Auto Differential OB 07/05/2020 [facility]) [phone] White Blood Count 6.8 10 Normal 4.0-10.0 Red Blood Count 4.17 10 Normal 4.00-5.40 Hemoglobin 13.6 g/dL Normal 12.0-15.5 Hematocrit 41.5 % Normal 36.0-47.0 Mean Corpuscular Volume 99.5 fl High 80.0-96.0 Mean Corpuscular Hemoglobin 32.6 pg Normal 27.0-33.0 Mean Corpuscular HGB Conc 32.8 g/dL Normal 32.0-36.5 Red Cell Distribution Width 13.9 % Normal 11.5-14.5 Platelet Count, Automated 308 10 Normal 150-450 Neutrophils % 56.1 % Normal 36.0-66.0 Lymph % 29.7 % Normal 24.0-44.0 Mower % 9.5 % High 0.0-5.0 Eos % 3.1 % High 0.0-3.0 Baso % 1.5 % High 0.0-1.0 Immature Granulocyte % 0.1 % Normal 0-3.0 Nucleated Red Blood Cell % 0.0 % Normal 0-0 Neutrophils # 3.8 10 Normal 1.5-8.5 Lymph # 2.0 10 Normal 1.5-5.0 Mower # 0.7 10 Normal 0.0-0.8 Eos # 0.2 10 Normal 0.0-0.5 Baso # 0.1 10 Normal 0.0-0.2 Comprehensive Metabolic Profil 07/05/2020 [facility]) [phone] Glucose, Fasting 116 mg/dL High 70-100 Blood Urea Nitrogen 13 mg/dL Normal 7-18 Creatinine For GFR 1.14 mg/dL Normal 0.55-1.30 Glomerular Filtration Rate 48.8 Normal >32 1 0 Sodium Level 140 mEq/L Normal 136-145 Potassium Serum 3.9 mEq/L Normal 3.5-5.1 Chloride Level 108 mEq/L High 98-107 Carbon Dioxide Level 26 mEq/L Normal 21-32 Anion Gap 6 mEq/L Low 8-16 Calcium Level 9.1 mg/dL Normal 8.8-10.2 Ast/Sgot 24 U/L Normal 7-37 Alt/SGPT 20 U/L Normal 12-78 Alkaline Phosphatase 79 U/L Normal 45-117 Bilirubin,Total 0.7 mg/dL Normal 0.2-1.0 Total Protein 7.1 GM/DL Normal 6.4-8.2 Albumin 3.7 GM/DL Normal 3.2-5.2 Albumin/Globulin Ratio 1.1 Low 1.2-2.2 Laboratory test finding 07/05/2020 [facility] (Interface) [phone] Thyroid Stimulating Hormone 0.243 uIU/ML Low 0. 358-3.740 Free T4 1.55 ng/dL High 0.76-1.46 Laboratory test finding 07/01/2020 [facility] (Interface) [phone] Bedside Glucose 99 mg/dL Normal 83-110 Complete Blood Count 07/01/2020 [facility]) [phone] White Blood Count 5.5 10 Normal 4.0-10.0 Red Blood Count 4.17 10 Normal 4.00-5.40 Hemoglobin 13.5 g/dL Normal 12.0-15.5 Hematocrit 41.2 % Normal 36.0-47.0 Mean Corpuscular Volume 98.8 fl High 80.0-96.0 Mean Corpuscular Hemoglobin 32.4 pg Normal 27.0-33.0 Mean Corpuscular HGB Conc 32.8 g/dL Normal 32.0-36.5 Red Cell Distribution Width 14.4 % Normal 11.5-14.5 Platelet Count, Automated 250 10 Normal 150-450 Nucleated Red Blood Cell % 0.0 % Normal 0-0 Basic Metabolic Profile 07/01/2020 [facility] (Interface) [phone] Glucose, Fasting 104 mg/dL High 70-100 Blood Urea Nitrogen 13 mg/dL Normal 7-18 Creatinine For GFR 1.09 mg/dL Normal 0.55-1.30 Glomerular Filtration Rate 51.4 Normal >32 1 1 Sodium Level 138 mEq/L Normal 136-145 Potassium Serum 4.0 mEq/L Normal 3.5-5.1 Chloride Level 108 mEq/L High 98-107 Carbon Dioxide Level 24 mEq/L Normal 21-32 Anion Gap 6 mEq/L Low 8-16 Calcium Level 9.3 mg/dL Normal 8.8-10.2 CBC With Auto Differential OB 05/04/2020 [facility]) [phone] White Blood Count 6.1 10 Normal 4.0-10.0 Red Blood Count 3.77 10 Low 4.00-5.40 Hemoglobin 12.8 g/dL Normal 12.0-15.5 Hematocrit 38.6 % Normal 36.0-47.0 Mean Corpuscular Volume 102.4 fl High 80.0-96.0 Mean Corpuscular Hemoglobin 34.0 pg High 27.0-33.0 Mean Corpuscular HGB Conc 33.2 g/dL Normal 32.0-36.5 Red Cell Distribution Width 15.5 % High 11.5-14.5 Platelet Count, Automated 246 10 Normal 150-450 Neutrophils % 45.1 % Normal 36.0-66.0 Lymph % 38.5 % Normal 24.0-44.0 Mower % 11.4 % High 0.0-5.0 Eos % 3.5 % High 0.0-3.0 Baso % 1.3 % High 0.0-1.0 Immature Granulocyte % 0.2 % Normal 0-3.0 Nucleated Red Blood Cell % 0.0 % Normal 0-0 Neutrophils # 2.7 10 Normal 1.5-8.5 Lymph # 2.3 10 Normal 1.5-5.0 Mower # 0.7 10 Normal 0.0-0.8 Eos # 0.2 10 Normal 0.0-0.5 Baso # 0.1 10 Normal 0.0-0.2 Comprehensive Metabolic Profil 05/04/2020 [facility]) [phone] Glucose, Fasting 137 mg/dL High 70-100 Blood Urea Nitrogen 12 mg/dL Normal 7-18 Creatinine For GFR 1.10 mg/dL Normal 0.55-1.30 Glomerular Filtration Rate 50.9 Normal >32 1 2 Sodium Level 141 mEq/L Normal 136-145 Potassium Serum 4.0 mEq/L Normal 3.5-5.1 Chloride Level 107 mEq/L Normal 98-107 Carbon Dioxide Level 27 mEq/L Normal 21-32 Anion Gap 7 mEq/L Low 8-16 Calcium Level 8.7 mg/dL Low 8.8-10.2 Ast/Sgot 25 U/L Normal 7-37 Alt/SGPT 21 U/L Normal 12-78 Alkaline Phosphatase 76 U/L Normal 45-117 Bilirubin,Total 0.5 mg/dL Normal 0.2-1.0 Total Protein 6.7 GM/DL Normal 6.4-8.2 Albumin 3.7 GM/DL Normal 3.2-5.2 Albumin/Globulin Ratio 1.2 Normal 1.2-2.2 Laboratory test finding 05/04/2020 [facility] (Interface) [phone] Ca15-3 Antigen 27.9 U/ML Normal <32.4 13 Carcinoembryonic Antigen 2.8 NG/ML High <2.5 14 CA 27.29 73.4 U/mL High 0.0-38.6 15 CBC With Differential 02/19/2020 [facility] (Interface) [phone] White Blood Count 6.2 10 Normal 4.0-10.0 Red Blood Count 3.79 10 Low 4.00-5.40 Hemoglobin 13.0 g/dL Normal 12.0-15.5 Hematocrit 37.8 % Normal 36.0-47.0 Mean Corpuscular Volume 99.7 fl High 80.0-96.0 Mean Corpuscular Hemoglobin 34.3 pg High 27.0-33.0 Mean Corpuscular HGB Conc 34.4 g/dL Normal 32.0-36.5 Red Cell Distribution Width 15.2 % High 11.5-14.5 Platelet Count, Automated 265 10 Normal 150-450 Neutrophils % 59.1 % Normal 36.0-66.0 Lymph % 28.8 % Normal 24.0-44.0 Mower % 8.2 % High 0.0-5.0 Eos % 2.9 % Normal 0.0-3.0 Baso % 0.8 % Normal 0.0-1.0 Immature Granulocyte % 0.2 % Normal 0-3.0 Nucleated Red Blood Cell % 0.0 % Normal 0-0 Neutrophils # 3.7 10 Normal 1.5-8.5 Lymph # 1.8 10 Normal 1.5-5.0 Mower # 0.5 10 Normal 0.0-0.8 Eos # 0.2 10 Normal 0.0-0.5 Baso # 0.1 10 Normal 0.0-0.2 Comprehensive Metabolic Profil 02/19/2020 [facility] (Interface) [phone] Glucose, Fasting 157 mg/dL High 70-100 Blood Urea Nitrogen 11 mg/dL Normal 7-18 Creatinine For GFR 1.19 mg/dL Normal 0.55-1.30 Glomerular Filtration Rate 46.6 Normal >39 1 6 Sodium Level 140 mEq/L Normal 136-145 Potassium Serum 4.1 mEq/L Normal 3.5-5.1 Chloride Level 109 mEq/L High 98-107 Carbon Dioxide Level 23 mEq/L Normal 21-32 Anion Gap 8 mEq/L Normal 8-16 Calcium Level 8.8 mg/dL Normal 8.8-10.2 Ast/Sgot 24 U/L Normal 7-37 Alt/SGPT 25 U/L Normal 12-78 Alkaline Phosphatase 76 U/L Normal 45-117 Bilirubin,Total 0.5 mg/dL Normal 0.2-1.0 Total Protein 7.2 GM/DL Normal 6.4-8.2 Albumin 3.6 GM/DL Normal 3.2-5.2 Albumin/Globulin Ratio 1.0 Low 1.2-2.2 Laboratory test finding 02/19/2020 [facility] (Interface) [phone] CA 27.29 See Separate Rep <SEE NOTE> U/ML Normal 0.0-38.6 17 1 Units are mL/min/1.73 m2 Chronic Kidney Disease Staging per NKF: Stage I & II GFR >=60 Normal to Mildly Decreased Stage III GFR 30-59 Moderately Decreased Stage IV GFR 15-29 Severely Decreased Stage V GFR <15 Very Little GFR Left ESRD GFR <15 on SEAFOOD TEAM MEMBER 2 Siemens Centaur Immunochemil uminometric Methodology (ICMA) . Values obtained with different assay methods or kits cannot be used interchangeably. Results cannot be interpreted as absolute evidence of the presence or absence of malignant disease. Performed at: RN - [facility] [address] [id number] Leather Stamper: Urvashi Hsieh MD, Phone: [phone] Units are mL/min/1.73 m2 Chronic Kidney Disease Staging per NKF: Stage I & II GFR >=60 Normal to Mildly Decreased Stage III GFR 30-59 Moderately Decreased Stage IV GFR 15-29 Severely Decreased Stage V GFR <15 Very Little GFR Left ESRD GFR <15 on SEAFOOD TEAM MEMBER 4 [place]aur Immunochemil uminometric Methodology (ICMA) . Values obtained with different assay methods or kits cannot be used interchangeably. Results cannot be interpreted as absolute evidence of the presence or absence of malignant disease. Performed at: [facility] [employer] [id number] [place] Stamper: Urvashi Hsieh MD, Phone: [phone] 5 Units are mL/min/1.73 m2 Chronic Kidney Disease Staging per NKF: Stage I & II GFR >=60 Normal to Mildly Decreased Stage III GFR 30-59 Moderately Decreased Stage IV GFR 15-29 Severely Decreased Stage V GFR <15 Very Little GFR Left ESRD GFR <15 on SEAFOOD TEAM MEMBER 6 THE CA 19-9 ASSAY IS PERFORM ED ON THE [employer] BY CHEMILUMINESCENCE AND SHOULD NOT BE COMPARED INTERCHANGEABLY WITH OTHER METHODS. IT SHOULD NOT BE USED ALONE A SCREENING TEST OR DIAGNOSIS FOR THE PRESENCE OR ABSENCE OF MALIGNANT DISEASE. PREDICTIONS OF DISEASE RECURRENCE SHOULD NOT BE BASED SOLELY ON VALUES OBTAINED FROM SERIAL PATIENT SERUM VALUES. 7 Siemens WILEXaur Immunochemil uminometric Methodology (ICMA) . Values obtained with different assay methods or kits cannot be used interchangeably. Results cannot be interpreted as absolute evidence of the presence or absence of malignant disease. Performed at: [facility] [employer] [id number] [place] Stamper: Urvashi Hsieh MD, Phone: [phone] Units are mL/min/1.73 m2 Chronic Kidney Disease Staging per NKF: Stage I & II GFR >=60 Normal to Mildly Decreased Stage III GFR 30-59 Moderately Decreased Stage IV GFR 15-29 Severely Decreased Stage V GFR <15 Very Little GFR Left ESRD GFR <15 on SEAFOOD TEAM MEMBER 9 Units are mL/min/1.73 m2 Chronic Kidney Disease Staging per NKF: Stage I & II GFR >=60 Normal to Mildly Decreased Stage III GFR 30-59 Moderately Decreased Stage IV GFR 15-29 Severely Decreased Stage V GFR <15 Very Little GFR Left ESRD GFR <15 on SEAFOOD TEAM MEMBER 10 Units are mL/min/1.73 m2 Chronic Kidney Disease Staging per NKF: Stage I & II GFR >=60 Normal to Mildly Decreased Stage III GFR 30-59 Moderately Decreased Stage IV GFR 15-29 Severely Decreased Stage V GFR <15 Very Little GFR Left ESRD GFR <15 on SEAFOOD TEAM MEMBER 11 Units are mL/min/1.73 m2 Chronic Kidney Disease Staging per NKF: Stage I & II GFR >=60 Normal to Mildly Decreased Stage III GFR 30-59 Moderately Decreased Stage IV GFR 15-29 Severely Decreased Stage V GFR <15 Very Little GFR Left ESRD GFR <15 on SEAFOOD TEAM MEMBER 12 Units are mL/min/1.73 m2 Chronic Kidney Disease Staging per NKF: Stage I & II GFR >=60 Normal to Mildly Decreased Stage III GFR 30-59 Moderately Decreased Stage IV GFR 15-29 Severely Decreased Stage V GFR <15 Very Little GFR Left ESRD GFR <15 on SEAFOOD TEAM MEMBER 13 THE CA 15-3 ASSAY IS PERFORM ED ON THE [employer] BY CHEMILUMINESCENCE AND SHOULD NOT BE COMPARED INTERCHANGEABLY WITH OTHER METHODS. IT SHOULD NOT BE USED ALONE A SCREENING TEST OR DIAGNOSIS FOR THE PRESENCE OR ABSENCE OF MALIGNANT DISEASE. PREDICTIONS OF DISEASE RECURRENCE SHOULD NOT BE BASED SOLELY ON VALUES OBTAINED FROM SERIAL PATIENT SERUM VALUES. 14 THE [facility] ASSAY IS PERFORMED O N THE [place] BY CHEMILUMINESCENCE AND SHOULD NOT BE COMPARED INTERCHANGEABLY WITH OTHER METHODS. IT SHOULD NOT BE USED ALONE A SCREENING TEST OR DIAGNOSIS FOR THE PRESENCE OR ABSENCE OF MALIGNANT DISEASE. PREDICTIONS OF DISEASE RECURRENCE SHOULD NOT BE BASED SOLELY ON VALUES OBTAINED FROM SERIAL PATIENT SERUM VALUES. 15 Siemens WILEXaur Immunochemil uminometric Methodology (ICMA) . Values obtained with different assay methods or kits cannot be used interchangeably. Results cannot be interpreted as absolute evidence of the presence or absence of malignant disease. Performed at: RN - [facility] [address] [id number] [place] [employer]per: Urvashi Hsieh MD, Phone: [phone] Units are mL/min/1.73 m2 Chronic Kidney Disease Staging per NKF: Stage I & II GFR >=60 Normal to Mildly Decreased Stage III GFR 30-59 Moderately Decreased Stage IV GFR 15-29 Severely Decreased Stage V GFR <15 Very Little GFR Left ESRD GFR <15 on [employer]BER 17 See Separate Report Testing performed at reference lab . Report copy to follow on a separate form. 04/14/20 REF LAB#:[id number] Procedures Description No Information Available Medical Devices Description No Information Available Encounters Description No Information Available Assessments Description No Information Available Plan of Treatment No Information Available Functional Status Description No Information Available Mental Status Description No Information Available Referrals Description No Information Available
--- OUTSIDE RECORDS SUMMARY | 2020-09-08 16:13 | CCD | Continuity of Care Document ---
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 yonug shola Bob Bateman, MICHEAL Onset: 06/12/2019 Social [...] hours as needed 54gm Rj tan D.O., [facility] 01/10/2016 Amlodipine Besylate/Benazepril Hydrochlo ride 10-40mg Capsules Take 1 Capsule By Mouth Every Day Maximu m Daily Dose = 1 90caps Rj Murillo D.O., [facility] Allopurinol 300mg Tablets one by mouth daily 90tabs Rj Murillo D.O., [facility] Metformin HCL 500mg Tablets take one tablet by mouth every day 90tabs Rj Murillo D.O., [facility] 02/11/2014 Pravastatin Sodium 20mg Tablets take 1 tablet daily 90tabs [facility] 05/2011 Vitamin D 1000Unit Capsules 2 po qd OTC Kirsten Mahmood D., [employer] 09/17/2009 Aspirin 81 Low Dose 81mg Chewtabs 1 tab by mouth once a day Unknown Plavix 75mg Tablets 1 by mouth every day 90tabs Rj Murillo D.O., [facility] Immunizations CPT Code Status Date Vaccine Lot # 52031 Refused 05/08/2018 Influenza Virus Vaccine, Quadrivalent, Slit Virus, Im Use 3Y & Up Vital Signs Date Vital Result Comment 01/27/2020 1:59pm BP Systolic 120 mmHg BP Diastolic 58 mmHg Body Temperature 97.6 F Heart Rate 86 /min Respiratory Rate 20 /min Height 61 inches 5'1" Weight 204.00 lb Wiley Body Weight 105 lb BMI (Body Mass Index) 38.5 kg/m2 O2 % BldC Oximetry 97 % 06/12/2019 8:56am BP Systolic 140 mmHg BP Diastolic 82 mmHg BP Systolic Recheck 136 mmHg BP Diastolic Recheck 72 mmHg Body Temperature 98.2 F Heart Rate 75 /min Respiratory Rate 16 /min Height 61 inches 5'1" Weight 209.00 lb Wiley Body Weight 105 lb BMI (Body Mass Index) 39.5 kg/m2 O2 % BldC Oximetry 97 % Results Test Acquired Date Facility Test Result H/L Range Note CBC With Auto Differential OB 08/09/2020 [facility] ([facility]) [phone] White Blood Count 3.5 10 Low 4.0-10.0 [...] 36.0-66.0 Lymph % 41.4 % Normal 24.0-44.0 [place] % 4.5 % Normal 0.0-5.0 Eos % 0.8 % Normal 0.0-3.0 Baso % 2.3 % High 0.0-1.0 Immature Granulocyte % 0.6 % Normal 0-3.0 Nucleated Red Blood Cell % 0.0 % Normal 0-0 Neutrophils # 1.8 10 Normal 1.5-8.5 Lymph # 1.5 10 Normal 1.5-5.0 [place] # 0.2 10 Normal 0.0-0.8 Eos # 0.0 10 Normal 0.0-0.5 Baso # 0.1 10 Normal 0.0-0.2 Comprehensive Metabolic Profil 08/09/2020 [facility] ([facility]) [phone] Glucose, Fasting 135 mg/dL High 70-100 Blood Urea Nitrogen 15 mg/dL Normal 7-18 Creatinine For GFR 1.00 mg/dL Normal 0.55-1.30 Glomerular Filtration Rate 56.8 Normal >32 1 Sodium Level 141 mEq/L Normal 136-145 Potassium [...] Normal 3.2-5.2 Albumin/Globulin Ratio 1.0 Low 1.2-2.2 CBC With Auto Differential [facility] [phone] White Blood Count 4.9 10 Normal 4.0-10.0 [...] 36.0-66.0 Lymph % 35.5 % Normal 24.0-44.0 [place] % 12.9 % High 0.0-5.0 Eos % 0.4 % Normal 0.0-3.0 Baso % 2.2 % High 0.0-1.0 Immature Granulocyte % 1.0 % Normal 0-3.0 Nucleated Red Blood Cell % 0.0 % Normal 0-0 Neutrophils # 2.4 10 Normal 1.5-8.5 Lymph # 1.7 10 Normal 1.5-5.0 [place] # 0.6 10 Normal 0.0-0.8 Eos # 0.0 10 Normal 0.0-0.5 Baso # 0.1 10 Normal 0.0-0.2 Comprehensive Metabolic Profil 08/02/2020 [facility] ([facility]) [phone] Glucose, Fasting 125 mg/dL High 70-100 Blood Urea Nitrogen 11 mg/dL Normal 7-18 Creatinine For GFR 0.99 mg/dL Normal 0.55-1.30 Glomerular Filtration Rate 57.5 Normal >32 2 Sodium Level 141 mEq/L Normal 136-145 [...] 0.9 Low 1.2-2.2 Laboratory test finding 08/02/2020 [facility] ([facility]) [phone] Ca19-9 Tumor Marker,Carbohydra 17.5 U/ML Normal < 35.0 3 Thyroid Stimulating Hormone 0.445 uIU/ML Normal 0.358-3.740 Free T4 1.47 ng/dL High 0.76-1.46 CA 27.29 48.3 U/mL High 0.0-38.6 4 CBC With Auto Differential OB 07/19/2020 [facility] ([facility]) [phone] White Blood Count 5.1 10 Normal 4.0-10.0 [...] 36.0-66.0 Lymph % 43.3 % Normal 24.0-44.0 [place] % 10.8 % High 0.0-5.0 Eos % 2.0 % Normal 0.0-3.0 Baso % 1.6 % High 0.0-1.0 Immature Granulocyte % 1.2 % Normal 0-3.0 Nucleated Red Blood Cell % 0.0 % Normal 0-0 Neutrophils # 2.1 10 Normal 1.5-8.5 Lymph # 2.2 10 Normal 1.5-5.0 [place] # 0.6 10 Normal 0.0-0.8 Eos # 0.1 10 Normal 0.0-0.5 Baso # 0.1 10 Normal 0.0-0.2 Comprehensive Metabolic Profil 07/19/2020 [facility] ([facility]) [phone] Glucose, Fasting 146 mg/dL High 70-100 Blood Urea Nitrogen 12 mg/dL Normal 7-18 Creatinine For GFR 1.12 mg/dL Normal 0.55-1.30 Glomerular Filtration Rate 49.8 Normal >32 5 Sodium Level 141 mEq/L [...] 1.2-2.2 CBC With Auto Differential OB 07/12/2020 [facility] ([facility]) [phone] White Blood Count 4.9 10 Normal 4.0-10.0 [...] 36.0-66.0 Lymph % 44.4 % High 24.0-44.0 [place] % 8.6 % High 0.0-5.0 Eos % 4.3 % High 0.0-3.0 Baso % 1.0 % Normal 0.0-1.0 Immature Granulocyte % 0.8 % Normal 0-3.0 Nucleated Red Blood Cell % 0.0 % Normal 0-0 Neutrophils # 2.0 10 Normal 1.5-8.5 Lymph # 2.2 10 Normal 1.5-5.0 [place] # 0.4 10 Normal 0.0-0.8 Eos # 0.2 10 Normal 0.0-0.5 Baso # 0.1 10 Normal 0.0-0.2 Comprehensive Metabolic Profil 07/12/2020 [facility]) [phone] Glucose, Fasting 143 mg/dL High 70-100 Blood Urea Nitrogen 16 mg/dL Normal 7-18 Creatinine For GFR 1.10 mg/dL Normal 0.55-1.30 Glomerular Filtration Rate 50.9 Normal >32 6 Sodium Level 141 mEq/L Normal 136-145 Potassium [...] 1.1 Low 1.2-2.2 Laboratory test finding 07/05/2020 [facility] ([facility]) [phone] Thyroid Stimulating Hormone 0.243 uIU/ML Low 0. 358-3.740 Free T4 1.55 ng/dL High 0.76-1.46 Comprehensive Metabolic Profil 07/05/2020 [facility]) [phone] Glucose, Fasting 116 mg/dL High 70-100 Blood Urea Nitrogen 13 mg/dL Normal 7-18 Creatinine For GFR 1.14 mg/dL Normal 0.55-1.30 Glomerular Filtration Rate 48.8 Normal >32 7 Sodium Level 140 mEq/L Normal 136-145 Potassium [...] Low 1.2-2.2 CBC With Auto Differential OB 07/05/2020 [facility] ([facility]) [phone] White Blood Count 6.8 10 Normal 4.0-10.0 [...] 36.0-66.0 Lymph % 29.7 % Normal 24.0-44.0 [place] % 9.5 % High 0.0-5.0 Eos % 3.1 % High 0.0-3.0 Baso % 1.5 % High 0.0-1.0 Immature Granulocyte % 0.1 % Normal 0-3.0 Nucleated Red Blood Cell % 0.0 % Normal 0-0 Neutrophils # 3.8 10 Normal 1.5-8.5 Lymph # 2.0 10 Normal 1.5-5.0 [place] # 0.7 10 Normal 0.0-0.8 Eos # 0.2 10 Normal 0.0-0.5 Baso # 0.1 10 Normal 0.0-0.2 Laboratory test finding 07/01/2020 [facility] ([facility]) [phone] Bedside Glucose 99 mg/dL Normal 83-110 Complete Blood Count 07/01/2020 [facility]) [phone] White Blood Count 5.5 10 Normal 4.0-10.0 [...] % Normal 0-0 Basic Metabolic Profile 07/01/2020 [facility] ([facility]) [phone] Glucose, Fasting 104 mg/dL High 70-100 Blood Urea Nitrogen 13 mg/dL Normal 7-18 Creatinine For GFR 1.09 mg/dL Normal 0.55-1.30 Glomerular Filtration Rate 51.4 Normal >32 8 Sodium Level 138 mEq/L Normal 136-145 Potassium Serum 4.0 mEq/L Normal 3.5-5.1 Chloride Level 108 mEq/L High 98-107 Carbon Dioxide Level 24 mEq/L Normal 21-32 Anion Gap 6 mEq/L Low 8-16 Calcium Level 9.3 mg/dL Normal 8.8-10.2 CBC With Auto Differential OB 05/04/2020 [facility]) [phone] White Blood Count 6.1 10 Normal 4.0-10.0 [...] 36.0-66.0 Lymph % 38.5 % Normal 24.0-44.0 [place] % 11.4 % High 0.0-5.0 Eos % 3.5 % High 0.0-3.0 Baso % 1.3 % High 0.0-1.0 Immature Granulocyte % 0.2 % Normal 0-3.0 Nucleated Red Blood Cell % 0.0 % Normal 0-0 Neutrophils # 2.7 10 Normal 1.5-8.5 Lymph # 2.3 10 Normal 1.5-5.0 [place] # 0.7 10 Normal 0.0-0.8 Eos # 0.2 10 Normal 0.0-0.5 Baso # 0.1 10 Normal 0.0-0.2 Comprehensive Metabolic Profil 05/04/2020 [facility] ([facility]) [phone] Glucose, Fasting 137 mg/dL High 70-100 Blood [...] 1.2 Normal 1.2-2.2 Laboratory test finding 05/04/2020 [facility] ([facility]) [phone] Ca15-3 Antigen 27.9 U/ML Normal <32.4 10 Carcinoembryonic Antigen 2.8 NG/ML High <2.5 11 CA 27.29 73.4 U/mL High 0.0-38.6 12 CBC With Differential 02/19/2020 [facility]) [phone] White Blood Count 6.2 10 Normal 4.0-10.0 [...] 36.0-66.0 Lymph % 28.8 % Normal 24.0-44.0 [place] % 8.2 % High 0.0-5.0 Eos % 2.9 % Normal 0.0-3.0 Baso % 0.8 % Normal 0.0-1.0 Immature Granulocyte % 0.2 % Normal 0-3.0 Nucleated Red Blood Cell % 0.0 % Normal 0-0 Neutrophils # 3.7 10 Normal 1.5-8.5 Lymph # 1.8 10 Normal 1.5-5.0 [place] # 0.5 10 Normal 0.0-0.8 Eos # 0.2 10 Normal 0.0-0.5 Baso # 0.1 10 Normal 0.0-0.2 Comprehensive Metabolic Profil 02/19/2020 [facility]) [phone] Glucose, Fasting 157 mg/dL High 70-100 Blood Urea Nitrogen 11 mg/dL Normal 7-18 Creatinine For GFR 1.19 mg/dL Normal 0.55-1.30 Glomerular Filtration Rate 46.6 Normal >39 1 3 Sodium Level 140 mEq/L Normal 136-145 Potassium [...] 1.0 Low 1.2-2.2 Laboratory test finding 02/19/2020 [facility] ([facility]) [phone] CA 27.29 See Separate Rep <SEE NOTE> U/ML Normal 0.0-38.6 14 Hem[facility] [phone] Hemoglobin A1c 5.5 % Normal 15 Estimated Average Glucose 111 mg/dL High 60-110 Lipid Panel 02/11/2020 [facility] ([facility]) [phone] Triglycerides Level 169 mg/dL High <150 Cholesterol Level 199 mg/dL Normal <200 HDL Cholesterol 62 mg/dL Normal >40 LDL Cholesterol 103 mg/dL High <100 Non-HDL-C 137 mg/dL Normal Cholesterol Risk Ratio 3.209 Normal <5 1 Units are mL/min/1.73 m2 Chronic Kidney Disease Staging per NKF: Stage I & II GFR >=60 Normal to Mildly Decreased Stage III GFR 30-59 Moderately Decreased Stage IV GFR 15-29 Severely Decreased Stage V GFR <15 Very Little GFR Left ESRD GFR <15 on [employer] 2 Units are mL/min/1.73 m2 Chronic Kidney Disease Staging per NKF: Stage I & II GFR >=60 Normal to Mildly Decreased Stage III GFR 30-59 Moderately Decreased Stage IV GFR 15-29 Severely Decreased Stage V GFR <15 Very Little GFR Left ESRD GFR <15 on [employer]GER [employer]ELOPMENT 3 THE CA 19-9 ASSAY IS PERFORM ED ON THE Contact At Once! BY CHEMILUMINESCENCE AND SHOULD NOT BE COMPARED INTERCHANGEABLY WITH OTHER METHODS. IT SHOULD NOT BE USED ALONE A SCREENING TEST OR DIAGNOSIS FOR THE PRESENCE OR ABSENCE OF MALIGNANT DISEASE. PREDICTIONS OF DISEASE RECURRENCE SHOULD NOT BE BASED SOLELY ON VALUES OBTAINED FROM SERIAL PATIENT SERUM VALUES. 4 Siemens [id number] Immunochemil uminometric Methodology (ICMA) . Values obtained with different assay methods or kits cannot be used interchangeably. Results cannot be interpreted as absolute evidence of the presence or absence of malignant disease. Performed at: - [facility] [id number] Drying Equipment Operator: Urvashi Hsieh MD, Phone: [phone] 5 Units are mL/min/1.73 m2 Chronic Kidney Disease Staging per NKF: Stage I & II GFR >=60 Normal to Mildly Decreased Stage III GFR 30-59 Moderately Decreased Stage IV GFR 15-29 Severely Decreased Stage V GFR <15 Very Little GFR Left ESRD GFR <15 on [employer]GER [employer]ELOPMENT 6 Units are mL/min/1.73 m2 Chronic Kidney Disease Staging per NKF: Stage I & II GFR >=60 Normal to Mildly Decreased Stage III GFR 30-59 Moderately Decreased Stage IV GFR 15-29 Severely Decreased Stage V GFR <15 Very Little GFR Left ESRD GFR <15 on [employer]GER [employer]ELOPMENT 7 Units are mL/min/1.73 m2 Chronic Kidney Disease Staging per NKF: Stage I & II GFR >=60 Normal to Mildly Decreased Stage III GFR 30-59 Moderately Decreased Stage IV GFR 15-29 Severely Decreased Stage V GFR <15 Very Little GFR Left ESRD GFR <15 on [employer]GER [employer]ELOP[employer] 8 Units are mL/min/1.73 m2 Chronic Kidney Disease Staging per NKF: Stage I & II GFR >=60 Normal to Mildly Decreased Stage III GFR 30-59 Moderately Decreased Stage IV GFR 15-29 Severely Decreased Stage V GFR <15 Very Little GFR Left ESRD GFR <15 on [employer]NAGER [employer]ELOPMENT 9 Units are mL/min/1.73 m2 Chronic Kidney Disease Staging per NKF: Stage I & II GFR >=60 Normal to Mildly Decreased Stage III GFR 30-59 Moderately Decreased Stage IV GFR 15-29 Severely Decreased Stage V GFR <15 Very Little GFR Left ESRD GFR <15 on [employer]GER [employer]ELOPMENT 10 THE CA 15-3 ASSAY IS PERFORM ED ON THE [employer]AUR BY CHEMILUMINESCENCE AND SHOULD NOT BE COMPARED INTERCHANGEABLY WITH OTHER METHODS. IT SHOULD NOT BE USED ALONE A SCREENING TEST OR DIAGNOSIS FOR THE PRESENCE OR ABSENCE OF MALIGNANT DISEASE. PREDICTIONS OF DISEASE RECURRENCE SHOULD NOT BE BASED SOLELY ON VALUES OBTAINED FROM SERIAL PATIENT SERUM VALUES. 11 THE CE[facility] ASSAY IS PERFORMED O N THE [employer]AUR BY CHEMILUMINESCENCE AND SHOULD NOT BE COMPARED INTERCHANGEABLY WITH OTHER METHODS. IT SHOULD NOT BE USED ALONE A SCREENING TEST OR DIAGNOSIS FOR THE PRESENCE OR ABSENCE OF MALIGNANT DISEASE. PREDICTIONS OF DISEASE RECURRENCE SHOULD NOT BE BASED SOLELY ON VALUES OBTAINED FROM SERIAL PATIENT SERUM VALUES. 12 Siemens [place] Immunochemil uminometric Methodology (ICMA) . Values obtained with different assay methods or kits cannot be used interchangeably. Results cannot be interpreted as absolute evidence of the presence or absence of malignant disease. Performed at: RN - [facility] [address] [id number] Drying Equipment Operator: Urvashi Hsieh MD, Phone: [phone] 13 Units are mL/min/1.73 m2 Chronic Kidney Disease Staging per NKF: Stage I & II GFR >=60 Normal to Mildly Decreased Stage III GFR 30-59 Moderately Decreased Stage IV GFR 15-29 Severely Decreased Stage V GFR <15 Very Little GFR Left ESRD GFR <15 on [employer]NAGER [employer]ELOPMENT 14 See Separate Report Testing performed at reference lab . Report copy to follow on a separate form. 04/14/20 REF LAB#:[id number] REFERENCE RANGES: <=5.6% NORMAL 5.7-6.4% SUGGESTS IMPAIRED GLUCOSE META BOLISM/PREDIABETIC >= 6.5% ABNORMAL Procedures Description No Information Available Medical Devices Description No Information Available Encounters Description No Information Available Assessments Description No Information Available Plan of Treatment No Information Available Functional Status Description No Information Available Mental Status Description No Information Available Referrals Description No Information Available
--- OUTSIDE RECORDS SUMMARY | 2020-09-08 16:13 | CCD | Continuity of Care Document ---
Author Author Rachael [facility] Organization Unknown Address [address] [facility] [address] [place] [address] Phone [phone] Problems Active Problems Provider Date Hyperlipidemia Mark Conklin DO Onset: 01/28/2004 Vitamin D deficiency Bob Bateman RPA Onset: 9 Gout Bob Bateman, MICHEAL Onset: 11/04/2010 Elevated levels of transaminase & lactic acid dehydrog enase Bob Bateman RPA Onset: 12/27/2011 Type 2 diabetes mellitus Bob Bateman, MICHEAL Onset: 07/02 Essential hypertension Bob Bateman, MICHEAL Onset: 015 Chronic renal failure Bob Bateman, MICHEAL Onset: 06/19/20 16 Hypomagnesemia Bob Bateman, MICHEAL Onset: 06/19/2016 Hypokalemia Bob Bateman, MICHEAL Onset: 06/19/2016 Hyperthyroidism Bob Bateman, MICHEAL Onset: 03/05/2019 Note: [facility] ER CVA - cerebrovascular accident due to cerebral artery occlusion Bob Bateman RPA Onset: 03/07/2019 Note: 03/04/19 [facility] Malignant neoplasm of upper-inner quadrant of [...] hours as needed 54gm Rj tan D.O., [facility] 01/10/2016 Amlodipine Besylate/Benazepril Hydrochlo ride 10-40mg Capsules Take 1 Capsule By Mouth Every Day Maximu m Daily Dose = 1 90caps Rj Murillo D.O., [facility] Allopurinol 300mg Tablets one by mouth daily 90tabs Rj Murillo D.O., [facility]FP Metformin HCL 500mg Tablets take one tablet by mouth every day 90tabs Rj Murillo D.O., [facility] 02/11/2014 Pravastatin Sodium 20mg Tablets take 1 tablet daily 90tabs [facility] 05/2011 Vitamin D 1000Unit Capsules 2 po qd OTC Kirsten Mahmood D., [facility] 09/17/2009 Aspirin 81 Low Dose 81mg Chewtabs 1 tab by mouth once a day Unknown Plavix 75mg Tablets 1 by mouth every day 90tabs Rj Murillo D.O., [facility] Immunizations CPT Code Status Date Vaccine Lot # [id number] Refused 05/08/2018 Influenza Virus Vaccine, Quadrivalent, Slit Virus, Im Use 3Y & Up Vital Signs Date Vital Result Comment 01/27/2020 1:59pm BP Systolic 120 mmHg BP Diastolic 58 mmHg Body Temperature 97.6 F Heart Rate 86 /min Respiratory Rate 20 /min Height 61 inches 5'1" Weight 204.00 lb [place] Body Weight 105 lb BMI (Body Mass Index) 38.5 kg/m2 O2 % BldC Oximetry 97 % 06/12/2019 8:56am BP Systolic 140 mmHg BP Diastolic 82 mmHg BP Systolic Recheck 136 mmHg BP Diastolic Recheck 72 mmHg Body Temperature 98.2 F Heart Rate 75 /min Respiratory Rate 16 /min Height 61 inches 5'1" Weight 209.00 lb [place] Body Weight 105 lb BMI (Body Mass Index) 39.5 kg/m2 O2 % BldC Oximetry 97 % Results Test Acquired Date Facility Test Result H/L Range Note CBC With Auto Differential OB 08/02/2020 [facility] (Interface) [phone] White Blood Count 4.9 10 Normal 4.0-10.0 [...] 36.0-66.0 Lymph % 35.5 % Normal 24.0-44.0 [place] % 12.9 % High 0.0-5.0 Eos % 0.4 % Normal 0.0-3.0 Baso % 2.2 % High 0.0-1.0 Immature Granulocyte % 1.0 % Normal 0-3.0 Nucleated Red Blood Cell % 0.0 % Normal 0-0 Neutrophils # 2.4 10 Normal 1.5-8.5 Lymph # 1.7 10 Normal 1.5-5.0 [place] # 0.6 10 Normal 0.0-0.8 Eos # 0.0 10 Normal 0.0-0.5 Baso # 0.1 10 Normal 0.0-0.2 Comprehensive Metabolic Profil 08/02/2020 [facility] ([facility]) [phone] Glucose, Fasting 125 mg/dL High 70-100 Blood Urea Nitrogen 11 mg/dL Normal 7-18 Creatinine For GFR 0.99 mg/dL Normal 0.55-1.30 Glomerular Filtration Rate 57.5 Normal >32 1 Sodium Level 141 mEq/L [...] 0.9 Low 1.2-2.2 Laboratory test finding 08/02/2020 [facility] (Interface) [phone] Ca19-9 Tumor Marker,Carbohydra 17.5 U/ML Normal < 35.0 2 Thyroid Stimulating Hormone 0.445 uIU/ML Normal 0.358-3.740 Free T4 1.47 ng/dL High 0.76-1.46 CBC With Auto Differential OB 07/19/2020 [facility] ([facility]) [phone] White Blood Count 5.1 10 Normal 4.0-10.0 [...] 36.0-66.0 Lymph % 43.3 % Normal 24.0-44.0 [place] % 10.8 % High 0.0-5.0 Eos % 2.0 % Normal 0.0-3.0 Baso % 1.6 % High 0.0-1.0 Immature Granulocyte % 1.2 % Normal 0-3.0 Nucleated Red Blood Cell % 0.0 % Normal 0-0 Neutrophils # 2.1 10 Normal 1.5-8.5 Lymph # 2.2 10 Normal 1.5-5.0 [place] # 0.6 10 Normal 0.0-0.8 Eos # 0.1 10 Normal 0.0-0.5 Baso # 0.1 10 Normal 0.0-0.2 Comprehensive Metabolic Pro[facility] [phone] Glucose, Fasting 146 mg/dL High 70-100 Blood Urea Nitrogen 12 mg/dL Normal 7-18 Creatinine For GFR 1.12 mg/dL Normal 0.55-1.30 Glomerular Filtration Rate 49.8 Normal >32 3 Sodium Level 141 mEq/L [...] 1.2-2.2 CBC With Auto Differential OB 07/12/2020 [facility] ([facility]) [phone] White Blood Count 4.9 10 Normal 4.0-10.0 [...] 36.0-66.0 Lymph % 44.4 % High 24.0-44.0 [place] % 8.6 % High 0.0-5.0 Eos % 4.3 % High 0.0-3.0 Baso % 1.0 % Normal 0.0-1.0 Immature Granulocyte % 0.8 % Normal 0-3.0 Nucleated Red Blood Cell % 0.0 % Normal 0-0 Neutrophils # 2.0 10 Normal 1.5-8.5 Lymph # 2.2 10 Normal 1.5-5.0 [place] # 0.4 10 Normal 0.0-0.8 Eos # 0.2 10 Normal 0.0-0.5 Baso # 0.1 10 Normal 0.0-0.2 Comprehensive Metabolic Profil 07/12/2020 [facility] ([facility]) [phone] Glucose, Fasting 143 mg/dL High 70-100 Blood Urea Nitrogen 16 mg/dL Normal 7-18 Creatinine For GFR 1.10 mg/dL Normal 0.55-1.30 Glomerular Filtration Rate 50.9 Normal >32 4 Sodium Level 141 mEq/L Normal 136-145 Potassium [...] 1.2-2.2 CBC With Auto Differential OB 07/05/2020 [facility] ([facility]) [phone] White Blood Count 6.8 10 Normal 4.0-10.0 [...] 36.0-66.0 Lymph % 29.7 % Normal 24.0-44.0 [place] % 9.5 % High 0.0-5.0 Eos % 3.1 % High 0.0-3.0 Baso % 1.5 % High 0.0-1.0 Immature Granulocyte % 0.1 % Normal 0-3.0 Nucleated Red Blood Cell % 0.0 % Normal 0-0 Neutrophils # 3.8 10 Normal 1.5-8.5 Lymph # 2.0 10 Normal 1.5-5.0 [place] # 0.7 10 Normal 0.0-0.8 Eos # 0.2 10 Normal 0.0-0.5 Baso # 0.1 10 Normal 0.0-0.2 Comprehensive Metabolic Profil 07/05/2020 [facility] ([facility]) [phone] Glucose, Fasting 116 mg/dL High 70-100 Blood Urea Nitrogen 13 mg/dL Normal 7-18 Creatinine For GFR 1.14 mg/dL Normal 0.55-1.30 Glomerular Filtration Rate 48.8 Normal >32 5 Sodium Level 140 mEq/L Normal 136-145 Potassium [...] 1.1 Low 1.2-2.2 Laboratory test finding 07/05/2020 [facility] ([facility]) [phone] Thyroid Stimulating Hormone 0.243 uIU/ML Low 0. 358-3.740 Free T4 1.55 ng/dL High 0.76-1.46 Basic Metabolic Profile 07/01/2020 [facility] ([facility]) [phone] Glucose, Fasting 104 mg/dL High 70-100 Blood Urea Nitrogen 13 mg/dL Normal 7-18 Creatinine For GFR 1.09 mg/dL Normal 0.55-1.30 Glomerular Filtration Rate 51.4 Normal >32 6 Sodium Level 138 mEq/L Normal 136-145 Potassium Serum 4.0 mEq/L Normal 3.5-5.1 Chloride Level 108 mEq/L High 98-107 Carbon Dioxide Level 24 mEq/L Normal 21-32 Anion Gap 6 mEq/L Low 8-16 Calcium Level 9.3 mg/dL Normal 8.8-10.2 Complete Blood Count 07/01/2020 [facility]) [phone] White Blood Count 5.5 10 Normal 4.0-10.0 [...] Blood Cell % 0.0 % Normal 0-0 Laboratory test finding 07/01/2020 [facility] ([facility]) [phone] Bedside Glucose 99 mg/dL Normal 83-110 CBC With Auto Differential OB 05/04/2020 [facility]) [phone] White Blood Count 6.1 10 Normal 4.0-10.0 [...] 36.0-66.0 Lymph % 38.5 % Normal 24.0-44.0 [place] % 11.4 % High 0.0-5.0 Eos % 3.5 % High 0.0-3.0 Baso % 1.3 % High 0.0-1.0 Immature Granulocyte % 0.2 % Normal 0-3.0 Nucleated Red Blood Cell % 0.0 % Normal 0-0 Neutrophils # 2.7 10 Normal 1.5-8.5 Lymph # 2.3 10 Normal 1.5-5.0 [place] # 0.7 10 Normal 0.0-0.8 Eos # 0.2 10 Normal 0.0-0.5 Baso # 0.1 10 Normal 0.0-0.2 Comprehensive Metabolic Profil 05/04/2020 [facility] ([facility]) [phone] Glucose, Fasting 137 mg/dL High 70-100 Blood Urea Nitrogen 12 mg/dL Normal 7-18 Creatinine For GFR 1.10 mg/dL Normal 0.55-1.30 Glomerular Filtration Rate 50.9 Normal >32 7 Sodium Level 141 mEq/L Normal 136-145 Potassium [...] 1.2 Normal 1.2-2.2 Laboratory test finding 05/04/2020 [facility] ([facility]) [phone] Ca15-3 Antigen 27.9 U/ML Normal <32.4 8 Carcinoembryonic Antigen 2.8 NG/ML High <2.5 9 CA 27.29 73.4 U/mL High 0.0-38.6 10 CBC With Differential 02/19/2020 [facility] ([facility]) [phone] White Blood Count 6.2 10 Normal 4.0-10.0 [...] 36.0-66.0 Lymph % 28.8 % Normal 24.0-44.0 [place] % 8.2 % High 0.0-5.0 Eos % 2.9 % Normal 0.0-3.0 Baso % 0.8 % Normal 0.0-1.0 Immature Granulocyte % 0.2 % Normal 0-3.0 Nucleated Red Blood Cell % 0.0 % Normal 0-0 Neutrophils # 3.7 10 Normal 1.5-8.5 Lymph # 1.8 10 Normal 1.5-5.0 [place] # 0.5 10 Normal 0.0-0.8 Eos # 0.2 10 Normal 0.0-0.5 Baso # 0.1 10 Normal 0.0-0.2 Comprehensive Metabolic Profil 02/19/2020 [facility] ([facility]) [phone] Glucose, Fasting 157 mg/dL High 70-100 Blood Urea Nitrogen 11 mg/dL Normal 7-18 Creatinine For GFR 1.19 mg/dL Normal 0.55-1.30 Glomerular Filtration Rate 46.6 Normal >39 1 1 Sodium Level 140 mEq/L Normal 136-145 Potassium [...] 1.0 Low 1.2-2.2 Laboratory test finding 02/19/2020 [facility] ([facility]) [phone] CA 27.29 See Separate Rep <SEE NOTE> U/ML Normal 0.0-38.6 12 Hemoglobin A1c [facility] [phone] Hemoglobin A1c 5.5 % Normal 13 Estimated Average Glucose 111 mg/dL High 60-110 Lipid Panel 02/11/2020 [facility] ([facility]) [phone] Triglycerides Level 169 mg/dL High <150 Cholesterol [...] Little GFR Left ESRD GFR <15 on BOX COVERING MACHINE OPERATOR 2 THE CA 19-9 ASSAY IS PERFORM ED ON THE [place] BY CHEMILUMINESCENCE AND SHOULD NOT BE COMPARED INTERCHANGEABLY WITH OTHER METHODS. IT SHOULD NOT BE USED ALONE A SCREENING TEST OR DIAGNOSIS FOR THE PRESENCE OR ABSENCE OF MALIGNANT DISEASE. PREDICTIONS OF DISEASE RECURRENCE SHOULD NOT BE BASED SOLELY ON VALUES OBTAINED FROM SERIAL PATIENT SERUM VALUES. 3 Units are mL/min/1.73 m2 Chronic Kidney Disease Staging per NKF: Stage I & II GFR >=60 Normal to Mildly Decreased Stage III GFR 30-59 Moderately Decreased Stage IV GFR 15-29 Severely Decreased Stage V GFR <15 Very Little GFR Left ESRD GFR <15 on BOX COVERING MACHINE OPERATOR 4 Units are mL/min/1.73 m2 Chronic Kidney Disease Staging per NKF: Stage I & II GFR >=60 Normal to Mildly Decreased Stage III GFR 30-59 Moderately Decreased Stage IV GFR 15-29 Severely Decreased Stage V GFR <15 Very Little GFR Left ESRD GFR <15 on BOX COVERING MACHINE OPERATOR 5 Units are mL/min/1.73 m2 Chronic Kidney Disease Staging per NKF: Stage I & II GFR >=60 Normal to Mildly Decreased Stage III GFR 30-59 Moderately Decreased Stage IV GFR 15-29 Severely Decreased Stage V GFR <15 Very Little GFR Left ESRD GFR <15 on BOX COVERING MACHINE OPERATOR 6 Units are mL/min/1.73 m2 Chronic Kidney Disease Staging per NKF: Stage I & II GFR >=60 Normal to Mildly Decreased Stage III GFR 30-59 Moderately Decreased Stage IV GFR 15-29 Severely Decreased Stage V GFR <15 Very Little GFR Left ESRD GFR <15 on BOX COVERING MACHINE OPERATOR 7 Units are mL/min/1.73 m2 Chronic Kidney Disease Staging per NKF: Stage I & II GFR >=60 Normal to Mildly Decreased Stage III GFR 30-59 Moderately Decreased Stage IV GFR 15-29 Severely Decreased Stage V GFR <15 Very Little GFR Left ESRD GFR <15 on BOX COVERING MACHINE OPERATOR 8 THE CA 15-3 ASSAY IS PERFORM ED ON THE [place] BY CHEMILUMINESCENCE AND SHOULD NOT BE COMPARED INTERCHANGEABLY WITH OTHER METHODS. IT SHOULD NOT BE USED ALONE A SCREENING TEST OR DIAGNOSIS FOR THE PRESENCE OR ABSENCE OF MALIGNANT DISEASE. PREDICTIONS OF DISEASE RECURRENCE SHOULD NOT BE BASED SOLELY ON VALUES OBTAINED FROM SERIAL PATIENT SERUM VALUES. 9 THE CEA ASSAY IS PERFORMED O N THE [place] BY CHEMILUMINESCENCE AND SHOULD NOT BE COMPARED INTERCHANGEABLY WITH OTHER METHODS. IT SHOULD NOT BE USED ALONE A SCREENING TEST OR DIAGNOSIS FOR THE PRESENCE OR ABSENCE OF MALIGNANT DISEASE. PREDICTIONS OF DISEASE RECURRENCE SHOULD NOT BE BASED SOLELY ON VALUES OBTAINED FROM SERIAL PATIENT SERUM VALUES. 10 [employer] Immunochemil uminometric Methodology (ICMA) . Values obtained with different assay methods or kits cannot be used interchangeably. Results cannot be interpreted as absolute evidence of the presence or absence of malignant disease. Performed at: RN - [facility] [id number] Paste Mix[employer] Supervisor: Urvashi Hsieh MD, Phone: [phone] 11 Units are mL/min/1.73 m2 Chronic Kidney Disease Staging per NKF: Stage I & II GFR >=60 Normal to Mildly Decreased Stage III GFR 30-59 Moderately Decreased Stage IV GFR 15-29 Severely Decreased Stage V GFR <15 Very Little GFR Left ESRD GFR <15 on BOX COVERING MACHINE OPERATOR 12 See Separate Report Testing performed at reference lab . Report copy to follow on a separate form. 04/14/20 REF LAB#:[id number] REFERENCE RANGES: <=5.6% NORMAL 5.7-6.4% SUGGESTS IMPAIRED [...]
[2020-09-08 18:43] LABS: ALBUMIN 2.7 GM/DL (3.2-5.2); ALT/SGPT 20 U/L (12-78); BILIRUBIN,TOTAL 0.4 MG/DL (0.2-1.0); BLOOD UREA NITROGEN 12 MG/DL (7-18); CALCIUM LEVEL 9.2 MG/DL (8.8-10.2); CARBON DIOXIDE LEVEL 25 MEQ/L (21-32); CHLORIDE LEVEL 106 MEQ/L (98-107); CREATININE FOR GFR 0.88 MG/DL (0.55-1.30); GLOMERULAR FILTRATION RATE > 60.0 (>32); GLUCOSE, FASTING 109 MG/DL (70-100); PHOSPHORUS LEVEL 2.5 MG/DL (2.5-4.9); POTASSIUM SERUM 5.3 MEQ/L (3.5-5.1); SODIUM LEVEL 137 MEQ/L (136-145); TOTAL PROTEIN 6.7 GM/DL (6.4-8.2)
--- NOTE | 2020-09-08 19:28 | ECGEPIP ---
[facility] - ED Test Date: 2020-09-08 Pat Name: DENISE SANCHES Department: Room: - Gender: Female Autocad Technician: : 1940 Requested By: ARTHUR Cabrera Order Number: [id number] Reading MD: Alo Fish Measurements Intervals [place] Rate: 81 P: 41 CT: 163 QRS: 11 QRSD: 84 T: 46 QT: 362 QTc: 420 Interpretive Statements SINUS RHYTHM POOR R WAVE PROGRESSION NSTTW ABNORMALITY(S) SIMILAR TO 08/25/20 Electronically Signed on 09-08-2020 19:28:18 EST by Alo Fish
[2020-09-08] MEDS ORDERED: CLOPIDOGREL 75 MG TAB PO SCH (21:00)
[2020-09-08] MEDS ORDERED: LORATADINE 10 MG TAB PO SCH (21:00)
[2020-09-08] MEDS ORDERED: PRAVASTATIN 20 MG TAB PO SCH (21:00)
[2020-09-08] MEDS ORDERED: ASPIRIN 81 MG ENTERIC TAB PO SCH (21:00)
[2020-09-08 22:00] VITALS: BP 151/83
[2020-09-09 06:00] VITALS: BP 162/82
[2020-09-09 06:31] LABS: HEMATOCRIT 31.9 % (36.0-47.0); HEMOGLOBIN 9.9 g/dl (12.0-15.5); MEAN CORPUSCULAR HEMOGLOBIN 29.6 pg (27.0-33.0); MEAN CORPUSCULAR VOLUME 95.5 fl (80.0-96.0); PLATELET COUNT, AUTOMATED 357 10^3/uL (150-450); RED BLOOD COUNT 3.34 10^6/uL (4.00-5.40); WHITE BLOOD COUNT 7.4 10^3/uL (4.0-10.0)
[2020-09-09 06:52] LABS: ALBUMIN 2.4 GM/DL (3.2-5.2); ALT/SGPT 17 U/L (12-78); BILIRUBIN,TOTAL 0.4 MG/DL (0.2-1.0); BLOOD UREA NITROGEN 11 MG/DL (7-18); CALCIUM LEVEL 8.6 MG/DL (8.8-10.2); CARBON DIOXIDE LEVEL 24 MEQ/L (21-32); CHLORIDE LEVEL 109 MEQ/L (98-107); CREATININE FOR GFR 0.76 MG/DL (0.55-1.30); GLOMERULAR FILTRATION RATE > 60.0 (>32); GLUCOSE, FASTING 87 MG/DL (70-100); MAGNESIUM LEVEL 1.5 MG/DL (1.8-2.4); PHOSPHORUS LEVEL 2.8 MG/DL (2.5-4.9); POTASSIUM SERUM 4.8 MEQ/L (3.5-5.1); SODIUM LEVEL 141 MEQ/L (136-145); TOTAL PROTEIN 5.5 GM/DL (6.4-8.2)
[2020-09-09] MEDS ORDERED: SODIUM CHLORIDE 0.9% INJ 10 ML SYR IV PRN (07:30)
[2020-09-09] MEDS ORDERED: SODIUM CHLORIDE 0.9% INJ 10 ML SYR IV SCH (09:00)
[2020-09-09] MEDS ORDERED: ENOXAPARIN 40MG/0.4ML SYRINGE (J1650 PER 10MG) SC SCH (09:00)
[2020-09-09] MEDS ORDERED: MAG SULF 1GM/100ML (MAG RUN) 1 GM in IV 1 EA IV ONE (09:00)
[2020-09-09] MEDS: VITAMIN D 1,000 INTERNATIONAL UNITS TABLET PO SCH (09:06)
[2020-09-09] MEDS: allopurinoL 300 MG TAB PO SCH (09:06)
[2020-09-09] MEDS ORDERED: MAGN400T2 PO (12:39)
--- NOTE | 2020-09-09 19:11 | DS.PDOC ---
Discharge Summary General Date of Admission Sep 08, 2020 at 13:24 Date of Discharge 09/09/20 Attending Physician: Tasneem Blackmon MD Discharge Summary HISTORY OF PRESENT ILLNESS: Patient is an 80-year-old female with breast cancer status post chemotherapy, diabetes mellitus type 2, hypertension, hyperlipidemia, history of CVA who presents today after having lightheadedness and falling to the ground at home. According to the patient she did not loose consciousness but remembers all events during her fall. She states she was walking from [place] when she became lightheaded suddenly and fell to the ground. This episode was was missed by her daughter who then called neighbors to come and help. The patient states she had no dizziness, chest pain, shortness of breath, loss of consciousness, heart palpitations, fevers, chills, coughing, recent illnesses, nausea, vomiting, weakness more than normal, vision changes, diarrhea. She admits to having some decreased appetite since her chemotherapy started. She had recently decided with her hematology/oncologist to stop chemotherapy due to the multiple negative side effects she was experiencing including skin changes, increased weakness, decreased appetite, hair loss. She was brought to our emergency room today for further evaluation. In the ER, vital signs were stable. Abnormal labs include sodium 147, chloride 118, potassium 2.9, magnesium 1.1, calcium 5.9 with ionized calcium also being low. CT of the head was negative along with all other imaging. The patient was admitted 08/25/2020 through 08/30/2020 for syncopal episode. Records were reviewed and echocardiogram done during that time showed a preserved ejection fraction with diastolic dysfunction grade 1. All other syncopal workup was negative. During exam today in ER patient still felt weak and had at that point been given magnesium, potassium supplement. Patient was admitted for further treatment of electrolyte abnormalities, weakness s/p fall. HOSPITAL COURSE: Patient was supplemented 2 runs magsulfate IV, calcium gluconate x 1 and pot assium on admission. She had no events overnight on tele. PT evaluated patient AM of 09/09/20 and found her to be close to baseline, would benefit from continued services as o/p so home referral was given. VS remained stable and decision was made to discharge home. She has f/u arranged with PCP and is advised to have electrolytes and CMPchecked on next visit. At time of discharge on 09/09/20 patient was much improved and denied any lightheadedness, dizziness, shortness of breath, n/v/d, chest pain, incr unsteadiness of feet. PMH 1. Left breast cancer s/p chemotherapy (last session date unknown, within last 1 month) 2. Diabetes mellitus type 2 3. HLD 4. HTN 5. Asthma 6. 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 Cataract surgery on 01/2018 2. Left hand surgery FAMHX Father: COPD. ed 75 y/o Mother: Asthma. at 70 y/o SOCIAL HX Smoker: non-smoker Alcohol: occationally (Last drink 1 week ago) Drugs: denies Lives with her daughter who recently has been around more. She is a DNR/DNI, recent MOLST form on file. Heme/onc: Dr. Montemayor. PCP: Messi Bateman PA-C Ambulates at baseline with walker ALLERGIES: Please see below. HOME MEDICATIONS: Please see below. PHYSICAL EXAMINATION: VS: 131/68, 18, T 96, HR 88, 98% on RA CONSTITUTIONAL: No acute distress, resting comfortably, AAO x 3 EYES: PERRLA, EOM intact HENT, MOUTH: Normocephalic, atraumatic, moist mucous membranes NECK: SUPPLE, no JVD, no lymphadenopathy, no carotid bruit CV: Regular rate and rhythm, S1S2 normal, no murmurs/rubs/gallops CHEST: port in right chest wall RESPIRATORY: Clear to auscultation bilaterally, no rales/rhonchi/wheezes GI: obese abdomen, BS positive in 4 quadrants, soft, nontender, nondistended, no rebound or guarding, no organomegaly : Deferred MUSCULOSKELETAL: Normal ROM. No cyanosis, clubbing, swelling, joint deformity, extremity edema INTEGUMENTARY: Multiple areas on upper ext that are desquamated- appear to be healing. Otherwise, skin intact, no rashes, no lesions, no erythema NEUROLOGIC: Cranial Nerves II-XII are intact, no focal deficits PSYCHIATRIC: Mood and affect are normal LABORATORY DATA: Please see below IMAGING: CT head: No acute intracranial abnormalities CXR: NO acute cardiopulmonary abnormalities CT C spine: Advanced multilevel degenerative spondylosis. No evidence for acute pathology or trauma/injury. Last echocardiogram 07/2020: 1. Study is of acceptable technical quality. Underlying sinus rhythm. 2. Normal LV size with borderline LVH, hyperdynamic LV systolic function, estimated LVEF 70% to 75%. Grade 1 diastolic dysfunction. 3. Aortic sclerosis without significant stenosis. 4. Trace mitral and tricuspid insufficiency. 5. Normal central venous pressure and borderline pulmonary hypertension. ASSESSMENT: 80-year-old female with breast cancer status post chemotherapy, diabetes mellitus type 2, hypertension, hyperlipidemia, history of CVA admitted for further treatment of electrolyte abnormalities, weakness s/p fall. PLAN: Weakness s/p fall r/o 2/2 to dehydration and electrolyte abnormalities -Multiple electrolyte abnormalities below, see treatment plan -Walks with walker at baseline, daughter has been at her home helping her the past several weeks. -PT evaluated, home referral given Hypernatremia, hyperchloridemia 2/2 to dehydration- resolved -Sodium and Cl wnl this AM -Was placed on D5W with KCL overnight but this was stopped due to high K -patient is encouraged to drink at least 110 ounces of water daily, as currently she only drinks about 4 cups (32 ounces) Hypocalcemia, acute on chronic likely 2/2 to poor oral intake since chemotherapy was initiated , hx of Vitamin D deficiency -Calcium improved with calcium gluconate -Slightly low Vit D 1,25 and is on daily supplement at home. -Magnesium levels are improved -C/w supplemention of Vit D, requires close f/u with PCP to monitor these levels Hypomagnesemia, acute -Mag 1.5 this AM, given total of 2 mag runs this stay -Starting on mag ox 400 mg PO BID at discharge -Needs repeat labs checked regularly Hypokalemia, acute -Resolved with supplementation and fluids -F/u with PCP with labs checked regularly Left breast cancer s/p chemotherapy (last session date unknown, within last 1 mo nth) -Per patient, stopped receiving treatment with chemo due to incr symptoms, weakness, inability to tolerate -At this time, treatment is at a standstill, she is to f/u with heme/onc as o/p Diabetes mellitus type 2 -F/u with PCP HLD -C/w statin HTN -Low salt diet -C/w home med Asthma -Stable on RA Gout -Stable -C/w allopurinol 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 Also advised to have labs repeated to check electrolytes, CMP. TIME SPENT ON DISCHARGE: 35 minutes. Vital Signs/I&Os Vital Signs Date Time Temp Pulse Resp B/P (MAP) Pulse Ox O2 Delivery O2 Flow Rate FiO2 09/09/20 06:00 96.8 85 16 162/82 (108) 98 09/08/20 14:40 Room Air I&O- Last 24 Hours up to 6 AM 09/09/20 06:00 Intake Total 840 ml Output Total 601 ml Balance 239 ml Laboratory Data Labs 24H Laboratory Tests 2 09/09/20 05:54: Nucleated Red Blood Cells % (auto) 0.0, Anion Gap 8, Glomerular Filtration Rate > 60.0, Calcium Level 8.6L, Phosphorus Level 2.8, Magnesium Level 1.5L, Total Bilirubin 0.4, Aspartate Amino Transf (AST/SGOT) 25, Alanine Aminotransferase (ALT/SGPT) 17, Alkaline Phosphatase 113, Total Protein 5.5L, Albumin 2.4L, Albumin/Globulin Ratio 0.8L 09/09/20 07:33: Bedside Glucose (Misc Panel) 97 CBC/BMP Laboratory Tests 09/09/20 05:54 FSBS Laboratory Tests Test 09/09/20 07:33 Range/Units Bedside Glucose (Misc Panel) 97 83-110 MG/DL Discharge Medications Scheduled Allopurinol (Zyloprim) 300 Mg Tablet, 300 MG PO DAILY, (Reported) Amlodipine Besylate/Benazepril (Amlodipine-Benazepril 10-40 mg) 1 Cap Cap, 1 CAP PO DAILY, (Reported) Aspirin (Aspirin EC) 81 Mg Tablet.dr, 81 MG PO QHS, (Reported) Cholecalciferol (Vitamin D3) (Vitamin D3) 1,000 Unit Tablet, 1,000 UNITS PO DAILY, (Reported) Clopidogrel Bisulfate (Plavix) 75 Mg Tablet, 75 MG PO QHS, (Reported) Loratadine (Loratadine) 10 Mg Tablet, 10 MG PO QHS, (Reported) Magnesium Oxide (Magnesium Oxide) 400 Mg Tablet, 400 MG PO BID for constipation Metformin HCl (Metformin HCl) 500 Mg Tab, 500 MG PO DAILY, (Reported) Pravastatin Sodium (Pravastatin Sodium) 20 Mg Tab, 20 MG PO DAILY, (Reported) Allergies Coded Allergies: No Known Allergies (Unverified , 02/11/18) Tasneem Blackmon MD Sep 09, 2020 19:11
== END 2020-09-09 13:12 | disposition home health service (06) | DRG 641 ==
LOC: M ED 08:30 → EDBD 08:30 → M ED INP 13:24 → M MSPAV 15:03
PROVIDERS: ADMIT Internal Medicine; ATTEND Internal Medicine
DX: E86.0 Dehydration (principal); E87.0 Hyperosmolality and hypernatremia; C50.912 Malignant neoplasm of unspecified site of left female breast; R53.1 Weakness; E83.51 Hypocalcemia; E83.42 Hypomagnesemia; I10 Essential (primary) hypertension; E11.9 Type 2 diabetes mellitus without complications; E78.5 Hyperlipidemia, unspecified; Z86.73 Personal history of transient ischemic attack (TIA), and cerebral infarction without residual deficits; M10.9 Gout, unspecified; J45.909 Unspecified asthma, uncomplicated; H53.2 Diplopia; Z66 Do not resuscitate; Z79.899 Other long term (current) drug therapy; Z79.82 Long term (current) use of aspirin

== ENCOUNTER → 2020-12-06 | Outpatient (CLI) | payer MEDICARE ==
[~2020-12-06] MED LIST changes: +CLAR10CA3 PO; +GASTROGRAFIN SOLUTION 30ML (Q9963) As Ordered ONE; +LORA-674 PO; +MAGN400T2 PO; +vitamin d
--- NOTE | 2020-12-06 14:00 | REP ---
INDICATION: BREAST CA. COMPARISON: 09/07/2020. TECHNIQUE: CT chest performed without the use of intravenous contrast. Sagittal and coronal reconstruction images are performed. FINDINGS: Lungs: The 6 mm nodule in the right upper lobe is unchanged as seen on image number 31. The right middle lobe nodule on image 51 is 5 mm in diameter and also unchanged. The partially calcified nodule in the posterior left upper lobe is stable, on image 30. No new nodule is seen bilaterally. Right central venous catheter is present, the tip is in the superior vena cava. Mediastinum: There is a 1.2 cm lymph node just above the aortic arch which was previously 1.0 cm in short axis. Otherwise, multiple subcentimeter mediastinal lymph nodes are stable. Alejandra: No gross adenopathy. Axilla: No gross adenopathy. Pleura: No effusion. Heart: Not enlarged. Thoracic aorta: No aneurysm. Left breast mass is essentially unchanged in size and appearance. There is a small hiatal hernia. Thyroid is enlarged. Visualized osseous structures: Unremarkable. IMPRESSION: Stable subcentimeter nodules in the lungs as discussed above. 1 of the superior mediastinal lymph nodes just above the aortic arch has increased in short axis dimension by about 2 mm, but otherwise several subcentimeter mediastinal lymph nodes are stable. <Electronically signed by Smith Lopez > 12/06/20 [id number]
--- NOTE | 2020-12-06 14:11 | REP ---
INDICATION: BREAST CA COMPARISON: 09/07/2020. TECHNIQUE: CT Scan of the abdomen and pelvis was performed without intravenous contrast. Oral contrast was administered. Sagittal and coronal reconstruction images performed. FINDINGS: Liver: Grossly unremarkable. Gallbladder: There are small gallstones in the gallbladder. Spleen: Grossly unremarkable. Adrenals: Normal. Pancreas: Grossly unremarkable.. Kidneys: No hydronephrosis or nephrolithiasis. Ureters demonstrate no dilatation or calculus.There is 1.5 cm cyst in the lower right kidney. Small and large bowel: There is sigmoid and left colonic diverticulosis without acute diverticulitis. Free fluid: None. Abdominal aorta: No aneurysm. Adenopathy: None. Appendix: Not inflamed. Osseous structures: There are degenerative changes of the spine without compression deformity. Pelvis: No mass. No bladder calculus seen. A small umbilical hernia contains noninflamed fat. IMPRESSION: Small gallstones in the gallbladder. Right renal cyst. No acute findings. No adenopathy. <Electronically signed by Smith Lopez > 12/06/20 [id number]
== END ==
LOC: M RAD 11:13
PROVIDERS: ATTEND Internal Medicine Medical Oncology
DX: K80.20 Calculus of gallbladder without cholecystitis without obstruction (principal); N28.1 Cyst of kidney, acquired; R59.0 Localized enlarged lymph nodes; C50.919 Malignant neoplasm of unspecified site of unspecified female breast
CPT/HCPCS: 71250; 74176; Q9963

== ENCOUNTER → 2021-02-11 | Outpatient (REF) | payer MEDICARE ==
[~2021-02-11] MED LIST changes: +COVI100V IM; -GASTROGRAFIN SOLUTION 30ML (Q9963) As Ordered ONE
[2021-02-11 15:42] LABS: HEMOGLOBIN A1c 5.3 %
[2021-02-11 15:51] LABS: CHOLESTEROL RISK RATIO 3.094 (<5)
== END ==
LOC: M LAB REF 15:01
PROVIDERS: ATTEND Physician Assistant
DX: E78.5 Hyperlipidemia, unspecified (principal); E11.9 Type 2 diabetes mellitus without complications

== ENCOUNTER → 2021-03-14 | Outpatient (CLI) | payer MEDICARE ==
[~2021-03-14] MED LIST changes: +GASTROGRAFIN SOLUTION 30ML (Q9963) As Ordered ONE; +ISOVUE-370 76% 100ML VIAL As Ordered ONE
--- NOTE | 2021-03-14 16:35 | REP ---
INDICATION: BREAST CA. COMPARISON: Multiple the latest 12/06/2020 TECHNIQUE: Standard helical technique after the intravenous administration of 100 cc Isovue 370 FINDINGS: The lung bases are stable. The liver, gallbladder, spleen, pancreas, adrenal glands, and kidneys are unchanged. Note is again made of cholelithiasis and renal cysts. The abdominal aorta and para-aortic regions are unchanged. No adenopathy has developed. There is no significant change in the appearance of the bowel loops or the mesenteries. There is descending colon and sigmoid colon diverticulosis. There is no evidence of an intra-abdominal mass or adenopathy. There is no free fluid or free air. There is no significant change in appearance of the imaged osseous structures. IMPRESSION: Stable CT examination of the abdomen and pelvis. There is no evidence of acute disease. Findings as described above. <Electronically signed by Mauricio Jaramillo > 03/14/21 [id number]
--- NOTE | 2021-03-14 16:59 | REP ---
INDICATION: BREAST CA. COMPARISON: Comparison chest CT study September 07, 2020 and December 06, 2020.. TECHNIQUE: Helical scanning is acquired following the intravenous injection of 100 mL of Isovue 370. 3 mm axial images re-formatted. Coronal and sagittal MPR images are provided. FINDINGS: The previously noted mass in the left medial breast appears to have enlarged. On today's study it measures 4.8 x 2.1 by 3.0 cm. It appears to protrude from the skin surface more. There is heterogeneous enhancement in its periphery. There is no evidence of axillary lymphadenopathy on either side. No internal mammary adenopathy is appreciated. There is no evidence of pleural effusion or pericardial effusion. There is a calcified granulomatous nodule in the posterior segment of the left upper lobe on page 27 of 100 in series 204 of today's study. This is unchanged. There is a right upper lobe peribronchovascular nodule 5 mm in size on page 31 which is also unchanged. A small pleural based nodule is seen in the right middle lobe on page 50 unchanged from comparison study. No new pulmonary nodule is appreciated. No mass or infiltrate is seen. There is some vascular calcification. A few scattered anterior mediastinal lymph nodes are seen unchanged from the September 07, 2020 study and December 06, 2020 study. There is no evidence of aortic aneurysm or dissection. No filling defect is seen in the pulmonary arterial tree. Bone window settings show no bony destructive lesion. IMPRESSION: Stable intrathoracic findings. The left breast mass appears to have enlarged however in the interval since the prior study of December 06, 2020. <Electronically signed by Charles Sanchez > 03/14/21 [id number]
== END ==
LOC: M RAD 13:51
PROVIDERS: ATTEND Internal Medicine Medical Oncology
DX: C50.912 Malignant neoplasm of unspecified site of left female breast (principal); R91.1 Solitary pulmonary nodule
CPT/HCPCS: 71260; 74177; Q9963; Q9967

== ENCOUNTER → 2021-06-03 | Outpatient (CLI) | payer MEDICARE ==
[~2021-06-03] MED LIST changes: +GABA-282 PO; -GASTROGRAFIN SOLUTION 30ML (Q9963) As Ordered ONE; -ISOVUE-370 76% 100ML VIAL As Ordered ONE
--- NOTE | 2021-06-03 16:22 | RADONC.CN ---
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 Diagnosis/Treatment History Oncologic History Per Dr. 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 - primary intact left lower inner quadrant breast mass. - multi focal lymphadenopathy involving supraclavicular, infraclavicular hilar mediastinal. Left upper lobe pulmonary nodules, indeterminate. TREATMENT HISTORY: Left breast mass biopsy May 2020, ER negative/TX 1% positive/HER2 2+, FISH negative. CT scans 06/[address] 07/2019 revealing 4.2 cm left upper inner quadrant mass, left axillary node; PET 07/2019 with bilateral hilar and mediastinal nodes, left supraclavicular node; bone scan negative. Capecitabine 2000 mg twice a day 14 days on 7 days off on a 21 day cycle begun approximately 09/29/2019. Discontinued 06/17/2020 with disease progression as CT chest, abdomen and pelvis 06/08/2020 showed stability in chest lymphadenopathy including mediastinal, right paratracheal, prevascular, AP window and axillary adenopathy but did show size increase in left breast mass. Started palliative paclitaxel chemotherapy 07/05/2020. Developed diarrhea, balance problems, skin peeling and failure to thrive after cycle 2, day [address] chest, abdomen and pelvis 09/07/2020 showed decrease in the size of left breast mass. No other acute problems noted. Recent data: 03/14/21 CT chest FINDINGS: The previously noted mass in the left medial breast appears to have enlarged. On today's study it measures 4.8 x 2.1 by 3.0 cm. It appears to protrude from the skin surface more. There is heterogeneous enhancement in its periphery. There is no evidence of axillary lymphadenopathy on either side. No internal mammary adenopa thy is appreciated. There is no evidence of pleural effusion or pericardial effusion. There is a calcified granulomatous nodule in the posterior segment of the left upper lobe on page 27 of 100 in series 204 of today's study. This is unchanged. There is a right upper lobe peribronchovascular nodule 5 mm in size on page 31 which is also unchanged. A small pleural based nodule is seen in the right middle lobe on page 50 unchanged from comparison study. No new pulmonary nodule is appreciated. No mass or infiltrate is seen. There is some vascular calcification. A few scattered anterior mediastinal lymph nodes are seen unchanged from the September 07, 2020 study and December 06, 2020 study. There is no evidence of aortic aneurysm or dissection. No filling defect is seen in the pulmonary arterial tree. Bone window settings show no bony destructive lesion. IMPRESSION: Stable intrathoracic findings. The left breast mass appears to have enlarged however in the interval since the prior study of December 06, 2020. 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 She has no complaints related to the left breast mass, causes her no pain, but is tender to palpation. She has preserved appetite and energy. Denies CP, SOB, limb swelling, fevers, chills. Past Medical History: Type 2 diabetes. Hypertension History of TIA/CVA 02/2019 Osteoarthritis Asthma CKD Family History: No known family history of cancer Social History: Never smoker Drinks alcohol beverages once in a while Allergies / Meds Allergies: Coded Allergies: No Known Allergies (Unverified , 02/11/18) Home Meds Active Scripts Gabapentin (Gabapentin) 300 Mg Capsule, 1 CAP PO TID for 30 Days, #90 CAP Prov:MIKE HUSSEIN MD FACP 05/23/21 Reported Medications allopurinoL (allopurinoL) 300 Mg Tablet, 1 TAB PO DAILY 02/14/21 Covid-19 Vacc,Mrna(Moderna)/Pf (Moderna Covid19 Vacc(Unapprov)) 100 Mcg/0.5 Ml Vial, 100 MCG IM, VIAL 12/13/20 Cholecalciferol (Vitamin D3) (Vitamin D3) 1,000 Unit Tablet, 1000 UNITS PO DAILY, TAB 09/08/20 Loratadine (Loratadine) 10 Mg Tablet, 10 MG PO QHS, TAB 09/08/20 Clopidogrel Bisulfate (Plavix) 75 Mg Tablet, 75 MG PO QHS 08/25/20 Aspirin (Aspirin EC) 81 Mg Tablet.dr, 81 MG PO QHS 08/25/20 Pravastatin Sodium (Pravastatin Sodium) 20 Mg Tab, 20 MG PO DAILY, TAB 06/17/16 Amlodipine Besylate/Benazepril (Amlodipine-Benazepril 10-40 mg) 1 Cap Cap, 2 CAP PO DAILY, CAP 06/17/16 Discontinued Scripts Magnesium Oxide (Magnesium Oxide) 400 Mg Tablet, 400 MG PO BID for constipation for 30 Days, #60 TAB Prov:Tasneem Blackmon MD 09/09/20 Review of Systems Constitutional: Reports: Fatigue; Denies: Weight Loss Eyes: Denies: Pain HEENT: Denies: Head Aches Skin: Denies: Rash Pulmonary: Denies: Dyspnea, Cough Cardiovascular: Denies: Chest Pain Breast: Reports: Breast Skin Changes Gastrointestinal: Denies: Abdominal Pain Musculoskeletal: Denies: Neck pain, Back pain Neurological: Reports: Numbness; Denies: Weakness Psych: Reports: Mood Normal Vital Signs Wt 194 lbs T 96.3 P 77 RR 17 BP 139/63 O2 99% Pain 0 Fatigue 0 General Exam: Alert, Cooperative, No Acute Distress Eye Exam: PERRLA, EOMI ENT EXAM: Atraumatic Neck Exam: Supple; Negative: Lymphadenopathy Chest Exam: Clear to auscultation Heart Exam: Rate Normal Breast Exam: Symmetric Bilaterally (Ptotic), Lumps or Masses (Left superomedial breast with ~ 5 cm mass with extension to skin and overlying erythema without ulceration. The mass is mildly tender to palpation. ) Abdomen Exam: Soft Extremity Exam: Negative: Edema Skin Exam: Nl turgor and temperature Neuro Exam: Normal Gait, Normal Speech, Cranial Nerves 3-12 NL Psych Exam: Mental status NL Diagnostic and Laboratory Diagnostic Review Radiologic images, relevant labs and pathology reports were personally reviewed and discussed with Ms. Ivory. Assessment and Plan Impression Ms. Ivory is a 81 year old female with a history of de tatum stage IV left breast cancer [id number] stage IV, she is seen today for consideration of palliative RT for a growing and fungating left breast mass. Stage Left upper inner quadrant breast cancer [id number] ER/TX/HER2- Grade 3 stage IV Performance Status ECOG 1 Plan We had an extensive discussion with Ms. Ivory regarding the diagnosis at hand and available therapeutic options. Her lesion is quite superficial and on the most recent scans is the only site of known growing gross disease. She does not want to undertake additional chemotherapy due to the adverse reaction she had to taxol. I discussed that we could easily control this lesion with electron-based RT. I would use a 6 cm aperture and select an energy to cover the distal margin of the tumor with a 0.5 cm bolus to adequately dose the skin. I will give 40-50 Gy in 10 fractions to treat this lesion which should exert durable local control, which in this setting may afford her some PFS advantage given the absence of other measurable lesions on her scans. We discussed the logistics of receiving radiation therapy in detail including the need for a 1-time planning session. We reviewed the side effects of RT including expected CTCAE grade 1-2 skin reaction and fatigue. After discussing the risks, benefits and alternatives to radiation therapy, Ms. Ivory was amenable to pursuing radiotherapy. All questions were answered to the patient's satisfaction. We instructed the patient that if there were any questions,concerns or changes in clinical status in the interim to contact us. Recommendations RT 40-50 Gy in 10 fractions with electrons/bolus Simulation next week Billing Statement Total time of [33] minutes was spent preparing for the visit [2], obtaining HPI [5], examining the patient [4], reviewing diagnostic tests [5], discussing management options [7], coordinating care [3], and writing this note [7]. MANUEL CALHOUN MD Jun 03, 2021 16:22
== END ==
LOC: M ONCR 13:48
PROVIDERS: ATTEND General Practice
DX: C50.312 Malignant neoplasm of lower-inner quadrant of left female breast (principal); Z92.21 Personal history of antineoplastic chemotherapy; Z79.899 Other long term (current) drug therapy

== ENCOUNTER → 2021-06-28 | Outpatient (RCR) | payer MEDICARE ==
[~2021-06-28] MED LIST changes: -AMLO10CA22 PO; +AMLO10CA30 PO; +POTA-151 PO; -POTA20TA6 PO
== END ==
LOC: M ONCR 06-10 13:51
PROVIDERS: ATTEND General Practice
DX: C50.212 Malignant neoplasm of upper-inner quadrant of left female breast (principal)

== ENCOUNTER 2021-07-11 13:52 | Outpatient (RCR) | payer MEDICARE ==
[~2021-07-11 13:52] MED LIST changes: +AMLO10CA22 PO; -AMLO10CA30 PO; -POTA-151 PO; +POTA20TA6 PO
== END 2021-07-29 ==
LOC: M ONCR 13:52
PROVIDERS: ATTEND General Practice
DX: C50.212 Malignant neoplasm of upper-inner quadrant of left female breast (principal)

== ENCOUNTER → 2021-08-18 | Outpatient (CLI) | payer MEDICARE ==
[~2021-08-18] MED LIST changes: -AMLO10CA22 PO; +AMLO10CA30 PO; +POTA-151 PO; -POTA20TA6 PO
== END ==
LOC: M ONCR 08:55
PROVIDERS: ATTEND General Practice
DX: C50.212 Malignant neoplasm of upper-inner quadrant of left female breast (principal); Z92.3 Personal history of irradiation

== ENCOUNTER → 2022-01-17 | Outpatient (REF) | payer MEDICARE ==
[~2022-01-17] MED LIST changes: +ATOR1TAB21 PO; +BACTDSTA PO; -D31000TA2 PO; +FURO20TA2 PO; +VITA100093 PO; +VITA500T40 PO
[2022-01-17 10:46] LABS: HEMOGLOBIN A1c 5.5 %
[2022-01-17 10:56] LABS: CHOLESTEROL RISK RATIO 2.602 (<5); THYROID STIMULATING HORMONE 0.753 uIU/ML (0.358-3.740)
== END ==
LOC: M LAB REF 10:01
PROVIDERS: ATTEND Physician Assistant
DX: E78.5 Hyperlipidemia, unspecified (principal); I10 Essential (primary) hypertension; E11.9 Type 2 diabetes mellitus without complications

== ENCOUNTER → 2022-01-17 | Outpatient (CLI) | payer MEDICARE ==
[~2022-01-17] MED LIST changes: -ATOR1TAB21 PO; -VITA500T40 PO
[2022-01-17 10:30] LABS: BASO # 0.1 10^3/uL (0.0-0.2); BASO % 1.1 % (0.0-1.0); EOS # 0.2 10^3/uL (0.0-0.5); EOS % 2.4 % (0.0-3.0); HEMATOCRIT 41.9 % (36.0-47.0); HEMOGLOBIN 13.4 g/dl (12.0-15.5); LYMPH # 2.6 10^3/uL (1.5-5.0); LYMPH % 34.3 % (24.0-44.0); MEAN CORPUSCULAR HEMOGLOBIN 30.4 pg (27.0-33.0); MONO # 0.6 10^3/uL (0.0-0.8); MONO % 8.6 % (2.0-8.0); NEUTROPHILS % 53.3 % (36.0-66.0); PLATELET COUNT, AUTOMATED 275 10^3/uL (150-450); RED BLOOD COUNT 4.41 10^6/uL (4.00-5.40); WHITE BLOOD COUNT 7.5 10^3/uL (4.0-10.0)
[2022-01-17 10:49] LABS: BILIRUBIN,TOTAL 0.6 MG/DL (0.2-1.0); CALCIUM LEVEL 9.6 MG/DL (8.8-10.2); CREATININE FOR GFR 1.13 MG/DL (0.55-1.30); GLOMERULAR FILTRATION RATE 49.2 (>32); TOTAL PROTEIN 7.4 GM/DL (6.4-8.2)
== END ==
LOC: M ONCR 08:53
PROVIDERS: ATTEND General Practice
DX: C50.212 Malignant neoplasm of upper-inner quadrant of left female breast (principal); R32 Unspecified urinary incontinence; R91.8 Other nonspecific abnormal finding of lung field; R30.0 Dysuria; R41.0 Disorientation, unspecified; Z79.82 Long term (current) use of aspirin; Z79.899 Other long term (current) drug therapy; Z92.21 Personal history of antineoplastic chemotherapy; Z92.3 Personal history of irradiation

== ENCOUNTER 2022-01-20 14:48 | Inpatient (IN) | payer MEDICARE ==
[~2022-01-20] VITALS: Ht 154.9 cm; Wt 90.4 kg
[~2022-01-20 14:48] MED LIST changes: -ATOR1TAB21 PO; -ISOVUE-370 76% 100ML VIAL As Ordered ONE; -PROHANCE 279.3MG/ML 5ML VIAL As Ordered ONE; -VITA500T40 PO
[2022-01-20 16:41] LABS: HEMATOCRIT 37.9 % (36.0-47.0); HEMOGLOBIN 12.7 g/dl (12.0-15.5); MEAN CORPUSCULAR HEMOGLOBIN 32.1 pg (27.0-33.0); MEAN CORPUSCULAR HGB CONC 33.5 g/dl (32.0-36.5); MEAN CORPUSCULAR VOLUME 95.7 fl (80.0-96.0); PLATELET COUNT, AUTOMATED 243 10^3/uL (150-450); RED BLOOD COUNT 3.96 10^6/uL (4.00-5.40); WHITE BLOOD COUNT 8.1 10^3/uL (4.0-10.0)
[2022-01-20] MEDS ORDERED: ASPIRIN 325 MG TAB PO ONE (17:05)
[2022-01-20 17:12] LABS: INR 1.04
[2022-01-20 17:14] LABS: PARTIAL THROMBOPLASTIN TIME 88.9 SECONDS (25.9-37.0)
[2022-01-20 17:21] LABS: ALBUMIN 3.9 GM/DL (3.2-5.2); BILIRUBIN,DIRECT 0.2 MG/DL (0.0-0.2); BILIRUBIN,TOTAL 0.3 MG/DL (0.2-1.0); CALCIUM LEVEL 8.6 MG/DL (8.8-10.2); CHOLESTEROL RISK RATIO 2.412 (<5); CREATININE FOR GFR 1.77 MG/DL (0.55-1.30); FREE T4 1.32 NG/DL (0.76-1.46); GLOMERULAR FILTRATION RATE 29.3 (>32); POTASSIUM SERUM 4.4 MEQ/L (3.5-5.1); THYROID STIMULATING HORMONE 0.345 uIU/ML (0.358-3.740); TOTAL PROTEIN 6.7 GM/DL (6.4-8.2)
[2022-01-20 17:27] LABS: HEMOGLOBIN A1c 5.2 %
[2022-01-20 17:29] LABS: FOLATE 14.4 NG/ML (>5.4)
[2022-01-20] MEDS: NS 1,000 ML IV SCH (19:35)
[2022-01-20 19:39] LABS: RSV AMPLIFICATION NEGATIVE (NEGATIVE)
[2022-01-20] MEDS ORDERED: BACTDSTA PO (20:26)
[2022-01-20] MEDS ORDERED: HOME MED LIST COMPLETE! XX SCH (20:30)
[2022-01-20] MEDS: CLOPIDOGREL 75 MG TAB PO SCH (21:32)
[2022-01-21] MEDS: HEPARIN SOD (PORCINE) 5000UNITS/ML 1ML VIAL/SYRINGE SC SCH ×3 (05:50→20:55)
[2022-01-21 06:05] LABS: HEMATOCRIT 35.3 % (36.0-47.0); HEMOGLOBIN 11.7 g/dl (12.0-15.5); MEAN CORPUSCULAR HEMOGLOBIN 31.7 pg (27.0-33.0); MEAN CORPUSCULAR HGB CONC 33.1 g/dl (32.0-36.5); MEAN CORPUSCULAR VOLUME 95.7 fl (80.0-96.0); PLATELET COUNT, AUTOMATED 232 10^3/uL (150-450); RED BLOOD COUNT 3.69 10^6/uL (4.00-5.40); WHITE BLOOD COUNT 6.2 10^3/uL (4.0-10.0)
[2022-01-21 06:15] LABS: CALCIUM LEVEL 8.4 MG/DL (8.8-10.2); CREATININE FOR GFR 1.52 MG/DL (0.55-1.30); GLOMERULAR FILTRATION RATE 34.9 (>32); MAGNESIUM LEVEL 2.1 MG/DL (1.8-2.4); PHOSPHORUS LEVEL 3.1 MG/DL (2.5-4.9); POTASSIUM SERUM 4.2 MEQ/L (3.5-5.1)
[2022-01-21] MEDS ORDERED: SODIUM CHLORIDE 0.9% INJ 10 ML SYR IV PRN (11:25)
[2022-01-21 11:30] VITALS: BP 119/65
[2022-01-21 11:34] VITALS: BP 119/65
[2022-01-21] MEDS: NS 1,000 ML IV SCH (11:42)
[2022-01-21 12:01] VITALS: BP 126/65
[2022-01-21] MEDS: allopurinoL 300 MG TAB PO SCH (13:10)
[2022-01-21] MEDS: ASPIRIN 81MG ENTERIC TABLET PO SCH (13:10)
[2022-01-21] MEDS: CYANOCOBALAMIN 500 MCG TAB PO SCH (13:10)
[2022-01-21 14:00] VITALS: BP 139/68
[2022-01-21 18:00] VITALS: BP 147/73
[2022-01-21] MEDS: CLOPIDOGREL 75 MG TAB PO SCH (20:55)
[2022-01-21] MEDS ORDERED: ATORVASTATIN 20 MG TAB PO SCH (21:00)
[2022-01-21 21:31] VITALS: BP 148/68
[2022-01-22 01:49] VITALS: BP 149/67
[2022-01-22 05:10] VITALS: BP 146/66
[2022-01-22] MEDS: HEPARIN SOD (PORCINE) 5000UNITS/ML 1ML VIAL/SYRINGE SC SCH (06:15)
[2022-01-22 06:20] LABS: HEMOGLOBIN 12.7 g/dl (12.0-15.5); MEAN CORPUSCULAR HEMOGLOBIN 31.4 pg (27.0-33.0); MEAN CORPUSCULAR HGB CONC 32.6 g/dl (32.0-36.5); MEAN CORPUSCULAR VOLUME 96.5 fl (80.0-96.0); PLATELET COUNT, AUTOMATED 209 10^3/uL (150-450); RED BLOOD COUNT 4.04 10^6/uL (4.00-5.40); WHITE BLOOD COUNT 5.3 10^3/uL (4.0-10.0)
[2022-01-22 06:23] VITALS: BP 146/66
[2022-01-22 06:38] LABS: CALCIUM LEVEL 8.5 MG/DL (8.8-10.2); CREATININE FOR GFR 1.18 MG/DL (0.55-1.30); GLOMERULAR FILTRATION RATE 46.8 (>32); PHOSPHORUS LEVEL 2.7 MG/DL (2.5-4.9)
[2022-01-22] MEDS ORDERED: SODIUM CHLORIDE 0.9% INJ 10 ML SYR IV SCH (09:00)
[2022-01-22] MEDS: ASPIRIN 81MG ENTERIC TABLET PO SCH (09:13)
[2022-01-22] MEDS: CYANOCOBALAMIN 500 MCG TAB PO SCH (09:13)
[2022-01-22] MEDS: allopurinoL 300 MG TAB PO SCH (09:13)
[2022-01-22 09:15] VITALS: BP 146/67
[2022-01-22] MEDS ORDERED: VITA500T40 PO (11:31)
[2022-01-22] MEDS ORDERED: ATOR1TAB21 PO (11:31)
== END 2022-01-22 11:57 | disposition home health service (06) | DRG 66 ==
LOC: M ED 14:48 → M ED INP 15:59 → ENRESERV 01-21 10:04 → M MSPAV 01-21 11:17
PROVIDERS: ADMIT Internal Medicine; ATTEND Internal Medicine
DX: I63.9 Cerebral infarction, unspecified (principal); N18.30 Chronic kidney disease, stage 3 unspecified; E78.5 Hyperlipidemia, unspecified; C50.912 Malignant neoplasm of unspecified site of left female breast; M10.9 Gout, unspecified; I12.9 Hypertensive chronic kidney disease with stage 1 through stage 4 chronic kidney disease, or unspecified chronic kidney disease; R91.8 Other nonspecific abnormal finding of lung field; Z92.21 Personal history of antineoplastic chemotherapy; Z79.899 Other long term (current) drug therapy; Z79.82 Long term (current) use of aspirin; E11.9 Type 2 diabetes mellitus without complications; J45.909 Unspecified asthma, uncomplicated; Z66 Do not resuscitate; R60.0 Localized edema

== ENCOUNTER → 2022-01-20 | Outpatient (CLI) | payer MEDICARE ==
[~2022-01-20] MED LIST changes: +ATOR1TAB21 PO; +ISOVUE-370 76% 100ML VIAL As Ordered ONE; +PROHANCE 279.3MG/ML 5ML VIAL As Ordered ONE; +VITA500T40 PO
== END ==
LOC: M RAD 11:32
PROVIDERS: ATTEND General Practice
DX: C50.212 Malignant neoplasm of upper-inner quadrant of left female breast (principal); R51.9 Headache, unspecified; W19.XXXA Unspecified fall, initial encounter

== ENCOUNTER → 2022-05-02 | Outpatient (CLI) | payer MEDICARE ==
[~2022-05-02] MED LIST changes: +ATOR1TAB21 PO; +VITA500T40 PO
== END ==
LOC: M ONCR 09:50
PROVIDERS: ATTEND General Practice
DX: C50.212 Malignant neoplasm of upper-inner quadrant of left female breast (principal); Z79.01 Long term (current) use of anticoagulants; Z79.82 Long term (current) use of aspirin; Z79.899 Other long term (current) drug therapy; Z92.21 Personal history of antineoplastic chemotherapy; Z92.3 Personal history of irradiation

== ENCOUNTER 2022-05-29 13:59 | Outpatient (RCR) | payer MEDICARE ==
[~2022-05-29 13:59] MED LIST changes: +CLOP75TA99 PO; -PLAV1TAB2 PO
== END 2022-05-29 23:59 | disposition home or self-care (01) ==
LOC: M ONCR 13:59
PROVIDERS: ATTEND General Practice
DX: C50.212 Malignant neoplasm of upper-inner quadrant of left female breast (principal)

== ENCOUNTER 2022-06-02 11:27 | Outpatient (RCR) | payer MEDICARE | END 2022-06-28 | LOC: M ONCR 11:27 | PROVIDERS: ATTEND General Practice | DX: C50.212 Malignant neoplasm of upper-inner quadrant of left female breast (principal) ==

== ENCOUNTER → 2022-07-07 | Outpatient (CLI) | payer MEDICARE | LOC: M ONCR 13:21 | PROVIDERS: ATTEND General Practice | DX: C50.212 Malignant neoplasm of upper-inner quadrant of left female breast (principal); L59.8 Other specified disorders of the skin and subcutaneous tissue related to radiation; Z92.3 Personal history of irradiation ==

== ENCOUNTER → 2022-08-18 | Outpatient (REF) | payer MEDICARE ==
[2022-08-18 11:57] LABS: HEMOGLOBIN A1c 5.5 % (4.0-6.0)
[2022-08-18 12:08] LABS: CHOLESTEROL RISK RATIO 2.49 (<5); HDL CHOLESTEROL 45.7 MG/DL (>40); LDL CHOLESTEROL 48.1 MG/DL (<100)
[2022-08-18 12:11] LABS: THYROID STIMULATING HORMONE 1.1 uIU/ML (0.55-4.78)
== END ==
LOC: M LAB REF 11:18
PROVIDERS: ATTEND Physician Assistant
DX: E78.5 Hyperlipidemia, unspecified (principal); E11.9 Type 2 diabetes mellitus without complications

== ENCOUNTER → 2022-09-13 | Outpatient (CLI) | payer MEDICARE ==
[~2022-09-13] MED LIST changes: +LEVO1TAB39 PO; +METR0.7526 TOP
== END ==
LOC: M ONCR 11:06
PROVIDERS: ATTEND General Practice
DX: C50.212 Malignant neoplasm of upper-inner quadrant of left female breast (principal); Z92.3 Personal history of irradiation
CPT/HCPCS: 36415; 87070; 87077; 87186; 87205; G0463